=== PATIENT | male | born 1955 | race Caucasian/White ===

== ENCOUNTER 2020-05-28 00:35 | Emergency (ER) | payer MEDICAID ==
[~2020-05-28] VITALS: Ht 172.7 cm; Wt 71.6 kg
[2020-05-28 00:55] LABS: BASOPHILS # (AUTO) 0.1 10^3/uL (0.0-0.1); BASOPHILS % (AUTO) 1 % (0-10); EOSINOPHILS # (AUTO) 0.3 10^3/uL (0.0-0.3); EOSINOPHILS % (AUTO) 2 % (0-10); HEMATOCRIT 40 % (40-54); LYMPHOCYTES # (AUTO) 2.5 10^3/uL (1.0-4.0); LYMPHOCYTES % (AUTO) 20 % (12-44); MEAN CORPUSCULAR HEMOGLOBIN 30 pg (25-34); MEAN CORPUSCULAR HGB CONC 33 g/dL (32-36); MEAN CORPUSCULAR VOLUME 91 fL (80-99); MEAN PLATELET VOLUME 9.1 fL (9.0-12.2); MONOCYTES % (AUTO) 8 % (0-12); NEUTROPHILS # (AUTO) 8.5 10^3/uL (1.8-7.8); NEUTROPHILS % (AUTO) 68 % (42-75); PLATELET COUNT 288 10^3/uL (130-400); WHITE BLOOD COUNT 12.4 10^3/uL (4.3-11.0)
[2020-05-28 00:56] LABS: BILIRUBIN,URINE NEGATIVE (NEGATIVE); CLARITY,URINE SL CLOUDY; COLOR,URINE YELLOW; GLUCOSE, URINE (UA) NEGATIVE (NEGATIVE); KETONES,URINE NEGATIVE (NEGATIVE); LEUKOCYTE ESTERASE ,URINE NEGATIVE (NEGATIVE); NITRITE,URINE NEGATIVE (NEGATIVE); PROTEIN,URINE NEGATIVE (NEGATIVE)
--- NOTE | 2020-05-28 01:05 | ED General ---
General Chief Complaint: General Problems/Pain Stated Complaint: TREMORS Source of Information: Patient (VERY LIMITED HISTORIAN) History of Present Illness Date Seen by Provider: May 28, 2020 Time Seen by Provider: 00:37 Initial Comments PT ARRIVES VIA EMS FROM HOME --LIVES ALONE FAMILY/FRIENDS CALLED EMS BECAUSE PT WAS HAVING TREMORS, HAS HAD GENERALIZED WEAKNESS PT HAS HAD MULTIPLE FALLS RECENTLY, BUT DENIES ANY INJURIES FROM THEM. DENIES FALLING TODAY PT STATES THAT FOR THE LAST 2-3 WEEKS, HE HAS BEEN HAVING TINGLING IN HIS LEFT ARM AND IN HIS LEFT LEG, AND HAVING PROBLEMS WITH COORDINATION WITH HIS LEFT ARM AND LEFT LEG. HAS NOT SOUGHT CARE AT ANY TIME FOR THESE SYMPTOMS PT IS ALCOHOLIC, DRINKS UNKNOWN AMOUNT OF ALCOHOL EVERY DAY, REPORTS HE HAS "HAD A FEW BEERS" TODAY. PT ALSO SMOKES 2-3 PPD HAS NOT BEEN DX WITH COPD, DOES NOT HAVE HOME O2 STATES HE HAS HAD AN INHALER AND NEBULIZER BUT HAS NOT USED THEM LATELY PT ARRIVES COUGHING CONTINUOUSLY--STATES "I ALWAYS COUGH" EMS REPORT THAT PT WAS DYSPNEIC WITH MINIMAL EXERTION, AND WITH COUGHING. NO KNOWN FEVER/SWEATS/CHILLS DENIES ANY CHEST PAIN EMS REPORT O2 SAT 93% ON ROOM AIR AT THE SCENE O2 SATS 90-92% ON ROOM AIR--98% ON 2L/NC ON ARRIVAL HERE PT WAS SEEN AT [facility] LAST WEEK AND DX WITH SCABIES-STATES HE USED MEDICATION DIRECTED PT STATES HE HAS NOT SEEN A DR "IN A LONG TIME" PRIOR TO THAT. PT DENIES CHEST PAIN PT DENIES FEELING SHORT OF BREATH AT THIS TIME DENIES PAIN ANYWHERE DENIES NAUSEA/VOMITING/DIARRHEA DENIES VISION CHANGES--STATES HIS PERIPHERAL VISION HAS BEEN BAD FOR "A LONG TIME" DENIES SORE THROAT OR LOSS OF TASTE OR SMELL DENIES SWELLING IN LEGS/ FEET OR PAIN IN CALVES DENIES PALPITATIONS DENIES SYNCOPE DENIES HEADACHE HAS HAD SOME DIZZINESS/FEELING OFF BALANCE PT'S ONLY PRIOR VISIT HERE WAS IN 2007 FOR ABDOMINAL PAIN AND DX WITH C. DIFFICILE COLITIS--WAS NOT ADMITTED AT THAT TIME. PCP: ERICKSON Allergies and Home Medications Allergies Coded Allergies: No Known Drug Allergies (Unverified , 05/28/20) Patient Home Medication List Home Medication List Reviewed: Yes Review of Systems Review of Systems Constitutional: No chills, No diaphoresis; dizziness; No fever; malaise, weakness EENTM: no symptoms reported; No blurred vision, No double vision, No nose congestion, No throat pain Respiratory: see HPI, cough Cardiovascular: no symptoms reported; No chest pain, No edema, No palpitations, No vascular heart diseas Gastrointestinal: no symptoms reported; No abdominal pain, No diarrhea, No nausea, No vomiting Genitourinary: no symptoms reported Musculoskeletal: no symptoms reported; No back pain, No neck pain Skin: see HPI, pruritus, rash Psychiatric/Neurological: See HPI; Denies Headache; Numbness, Paresthesia, Tingling, Tremors, Weakness Past Aeuokwo-Ghhzud-Nauwwk Hx Past Med/Social Hx: Reviewed and Corrections made Patient Social History Alcohol Use: Regular Use (H) Drug of Choice: THC Smoking Status: Current Everyday Smoker Type Used: Cigarettes Substance type: Marijuana Past Medical History Surgeries: Yes (FACIAL RECONSTRUCTION; PILONIDAL CYST; CARDIAC CATH X 2--NO INTERVENTION; ) Cardiac Respiratory: Yes COPD Cardiac: Yes (CHF) Cardiomyopathy, Coronary Artery Disease, High Cholesterol, Hypertension Neurological: No Genitourinary: No Gastrointestinal: Yes (C. DIFFICILE 2008; HEPATITIS--UNKNOWN TYPE/NOT TREATED) Hepatitis, C-Diff Musculoskeletal: Yes (CARPAL TUNNEL SYNDROME) Arthritis, Chronic Back Pain Endocrine: No HEENT: No Cancer: No Psychosocial: Yes Anxiety, Depression Integumentary: Yes (SCABIES DX 05/2020) Blood Disorders: No Physical Exam Vital Signs Vital Signs - First Documented 05/28/20 00:37 Temp 36.2 Pulse 93 Resp 22 B/P (MAP) 144/94 (111) Pulse Ox 98 O2 Delivery Nasal Cannula O2 Flow Rate 2.00 Capillary Refill : Height, Weight, BMI Height: '" Weight: lbs. oz. kg; BMI Method: General Appearance: No Apparent Distress, WD/WN, Other (DIRTY, UNKEMPT, SLIGHT SLOW MENTATION; CONSTANT NON-PRODUCTIVE COUGH. ) HEENT: PERRL/EOMI, TMs Normal, Pharynx Normal, Other (TONGUE MIDLINE. ) Neck: Full Range of Motion, Normal Inspection, Non Tender, Supple; No Carotid Bruit, No JVD Respiratory: Rales (BILATERAL BASES), Other (CONSTANT COUGH; MILDLY DYSPNEIC. ) Cardiovascular: Regular Rate, Rhythm, No Edema, No JVD, No Murmur, Normal Peripheral Pulses Gastrointestinal: Non Tender, Soft Genital/Rectal: Other (PT VOIDED INTO URINAL ON HIS OWN MULTIPLE TIMES DURING ER STAY) Back: No CVA Tenderness Extremity: Normal Inspection, Normal Range of Motion, No Calf Tenderness, No Pedal Edema Neurologic/Psychiatric: Alert, Oriented x3 (BUT SLIGHTLY SLOW MENTATION, LIMITED HISTORIAN/SOME DIFFICULTY WITH MEMORY. ), Abnormal Cerebellar Tests (WITH LEFT ARM AND LEFT LEG--DIFFICULTY SITTING UPRIGHT--KEEPS LEANING TO LEFT; PT IS ABLE TO STAND ON OWN, WHILE HOLDING ON TO BED RAIL. ); No Aphasia, No Disoriented, No EOM Palsy, No Facial Droop; Motor Weakness (LEFT ARM AND LEFT LEG); No Sensory Deficit; Other (NIH 5--1 FOR LEFT ARM DRIFT, 2 FOR LEFT LEG DRIFT; 2 FOR LEFT UPPER AND LOWER EXTREMITY ATAXIA. NO INCONTINENCE.) Skin: Normal Color, Warm/Dry, Rash (DIFFUSE RASH WITH DISCRETE ERYTHEMATOUS PAPULES ON ENTIRE BODY--SPARING HEAD/FACE--CLASSIC APPEARANCE OF SCABIES. ) Progress/Results/Core Measures Suspected Sepsis SIRS Temperature: Pulse: Respiratory Rate: Laboratory Tests 05/28/20 00:45: White Blood Count 12.4H Blood Pressure / Mean: Laboratory Tests 05/28/20 00:45: Creatinine 0.74, INR Comment 1.0, Platelet Count 288, Total Bilirubin 0.2 Results/Orders Lab Results Laboratory Tests Test 05/28/20 00:45 05/28/20 01:00 Range/Units White Blood Count 12.4 H 4.3-11.0 10^3/uL Red Blood Count 4.41 4.30-5.52 10^6/uL Hemoglobin 13.0 L 13.3-17.7 g/dL Hematocrit 40 40-54 % Mean Corpuscular Volume 91 80-99 fL Mean Corpuscular Hemoglobin 30 25-34 pg Mean Corpuscular Hemoglobin Concent 33 32-36 g/dL Red Cell Distribution Width 15.2 H 10.0-14.5 % Platelet Count 288 130-400 10^3/uL Mean Platelet Volume 9.1 9.0-12.2 fL Immature Granulocyte % (Auto) 0 % Neutrophils (%) (Auto) 68 42-75 % Lymphocytes (%) (Auto) 20 12-44 % Monocytes (%) (Auto) 8 0-12 % Eosinophils (%) (Auto) 2 0-10 % Basophils (%) (Auto) 1 0-10 % Neutrophils # (Auto) 8.5 H 1.8-7.8 10^3/uL Lymphocytes # (Auto) 2.5 1.0-4.0 10^3/uL Monocytes # (Auto) 1.0 0.0-1.0 10^3/uL Eosinophils # (Auto) 0.3 0.0-0.3 10^3/uL Basophils # (Auto) 0.1 0.0-0.1 10^3/uL Immature Granulocyte # (Auto) 0.1 0.0-0.1 10^3/uL Prothrombin Time 13.3 12.2-14.7 SEC INR Comment 1.0 0.8-1.4 Activated Partial Thromboplast Time 32 24-35 SEC D-Dimer 0.52 H 0.00-0.49 UG/ML Urine Color YELLOW Urine Clarity SL CLOUDY Urine pH 6.0 5-9 Urine Specific [place] <=1.005 1.016-1.022 Urine Protein NEGATIVE NEGATIVE Urine Glucose (UA) NEGATIVE NEGATIVE Urine Ketones NEGATIVE NEGATIVE Urine Nitrite NEGATIVE NEGATIVE Urine Bilirubin NEGATIVE NEGATIVE Urine Urobilinogen 0.2 < = 1.0 MG/DL Urine Leukocyte Esterase NEGATIVE NEGATIVE Urine RBC (Auto) 1+ H NEGATIVE Urine RBC 0-2 /HPF Urine WBC 0-2 /HPF Urine Squamous Epithelial Cells RARE /HPF Urine Crystals NONE /LPF Urine Bacteria NEGATIVE /HPF Urine Casts NONE /LPF Urine Mucus NEGATIVE /LPF Urine Culture Indicated NO Sodium Level 136 135-145 MMOL/L Potassium Level 3.7 3.6-5.0 MMOL/L Chloride Level 104 98-107 MMOL/L Carbon Dioxide Level 21 21-32 MMOL/L Anion Gap 11 5-14 MMOL/L Blood Urea Nitrogen 11 7-18 MG/DL Creatinine 0.74 0.60-1.30 MG/DL Estimat Glomerular Filtration Rate > 60 BUN/Creatinine Ratio 15 Glucose Level 80 70-105 MG/DL Calcium Level 7.9 L 8.5-10.1 MG/DL Corrected Calcium 8.4 L 8.5-10.1 MG/DL Magnesium Level 1.7 1.6-2.4 MG/DL Total Bilirubin 0.2 0.1-1.0 MG/DL Aspartate Amino Transf (AST/SGOT) 15 5-34 U/L Alanine Aminotransferase (ALT/SGPT) 14 0-55 U/L Alkaline Phosphatase 69 40-136 U/L Ammonia 33 H 11-32 UMOL/L Lactate Dehydrogenase 205 125-220 U/L Total Creatine Kinase 94 30-200 U/L Creatine Kinase MB 2.4 <6.6 NG/ML Myoglobin 52.7 10.0-92.0 NG/ML Troponin I < 0.028 <0.028 NG/ML C-Reactive Protein High Sensitivity 2.42 H 0.00-0.50 MG/DL B-Type Natriuretic Peptide 104.0 H <100.0 PG/ML Total Protein 8.1 6.4-8.2 GM/DL Albumin 3.4 3.2-4.5 GM/DL Amylase Level 41 25-125 U/L Procalcitonin 0.02 <0.10 NG/ML TSH [place] Testing 2.31 0.35-4.94 UIU/ML Salicylates Level < 5.0 L 5.0-20.0 MG/DL Urine Opiates Screen NEGATIVE NEGATIVE Urine Oxycodone Screen NEGATIVE NEGATIVE Urine Methadone Screen NEGATIVE NEGATIVE Urine Propoxyphene Screen NEGATIVE NEGATIVE Acetaminophen Level < 10 L 10-30 UG/ML Urine Barbiturates Screen NEGATIVE NEGATIVE Ur Tricyclic Antidepressants Screen NEGATIVE NEGATIVE Urine Phencyclidine Screen NEGATIVE NEGATIVE Urine Amphetamines Screen NEGATIVE NEGATIVE Urine Methamphetamines Screen NEGATIVE NEGATIVE Urine Benzodiazepines Screen NEGATIVE NEGATIVE Urine Cocaine Screen NEGATIVE NEGATIVE Urine Cannabinoids Screen NEGATIVE NEGATIVE Serum Alcohol 144 H <10 MG/DL Coronavirus 2019 ([facility]ANKY) Positive H Negative Micro Results Microbiology 05/28/20 Influenza Types A,B Antigen (CARLY) - Final, Complete My Orders Orders - SHIRA CAREY DO Ed Iv/Invasive Line Start (05/28/20 00:40) Ekg Tracing (05/28/20 00:40) O2 (05/28/20 00:40) Monitor-Rhythm Ecg Trace Only (05/28/20 00:40) Ct Head Wo-R/O Stroke (05/28/20 00:40) Chest 1 View, Ap/Pa Only (05/28/20 00:40) Pelvis (05/28/20 00:40) Acetaminophen (05/28/20 00:40) Alcohol (05/28/20 00:40) Ammonia (05/28/20 00:40) Amylase (05/28/20 00:40) BNP (05/28/20 00:40) Cbc With Automated Diff (05/28/20 00:40) Comprehensive Metabolic Panel (05/28/20 00:40) Creatine Kinase (05/28/20 00:40) Creatine Kinase Mb (05/28/20 00:40) Hs C Reactive Protein (05/28/20 00:40) Drug Screen Stat (Urine) (05/28/20 00:40) Magnesium (05/28/20 00:40) Procalcitonin (Pct) (05/28/20 00:40) Protime With Inr (05/28/20 00:40) Partial Thromboplastin Time (05/28/20 00:40) Salicylate (05/28/20 00:40) Thyroid Analyzer (05/28/20 00:40) Ua Culture If Indicated (05/28/20 00:40) Erythrocyte Sedimentation Rate (05/28/20 00:40) Myoglobin Serum (05/28/20 00:40) Troponin I (05/28/20 00:40) Ed Iv/Invasive Line Start (05/28/20 00:40) Coronavirus Sars-Cov-2 So 2018 (05/28/20 00:57) Covid 19 Inhouse Test (05/28/20 00:57) Fluticasone/Salmeterol 115/21 (Advair Hf (05/28/20 08:00) Albuterol/Ipratropium Inhaler (Combivent (05/28/20 09:00) Rt Request For Service (05/28/20 00:57) Fibrin Degradation Products (05/28/20 00:45) LDH (05/28/20 00:45) Fluticasone/Salmeterol 115/21 (Advair Hf (05/28/20 01:47) Albuterol/Ipratropium Inhaler (Combivent (05/28/20 01:47) Influenza A And B Antigens (05/28/20 02:07) Dexamethasone Injection (Decadron Inje (05/28/20 03:00) Ceftriaxone For Iv Use (Rocephin For I (05/28/20 03:00) Azithromycin Injection (Zithromax Inject (05/28/20 03:00) Permethrin 5% Cream (Elimite 5% Cream) (05/28/20 03:15) Ed Iv/Invasive Line Start (05/28/20 03:06) Lactated Ringers (Lr 1000 Ml Iv Solution (05/28/20 03:15) Medications Given in ED Current Medications Medications Dose Ordered Sig/Rio Route Start Time Stop Time Status Last Admin Dose Admin Albuterol/ Ipratropium 1 PUFF QID ONCE 05/28/20 09:00 05/28/20 04:21 DC 05/28/20 02:05 4 GM Azithromycin 500 mg/Sodium Chloride 250 ml @ 250 mls/hr ONCE ONCE IV 05/28/20 03:00 05/28/20 03:59 DC 05/28/20 03:41 250 MLS/HR Ceftriaxone Sodium 1000 mg/ Sterile Water 10 ml @ 200 mls/hr ONCE ONCE IV 05/28/20 03:00 05/28/20 03:02 DC 05/28/20 03:41 200 MLS/HR Lactated Ringer's 1,000 ml @ 0 mls/hr Q0M ONCE IV 05/28/20 03:15 05/28/20 03:16 DC 05/28/20 03:40 999 MLS/HR Permethrin USE PER PACKAGE INSTRUCTIONS ONCE ONCE TOP 05/28/20 03:15 05/28/20 03:16 DC 05/28/20 03:39 60 GM Salmeterol Xinafoate/ Fluticasone 2 PUFFS RTBID ONCE 05/28/20 08:00 05/28/20 04:21 DC 05/28/20 02:05 1 EA Vital Signs/I&O 05/28/20 05/28/20 05/28/20 00:37 00:37 04:18 Temp 36.2 36.2 Pulse 93 98 Resp 22 18 B/P (MAP) 144/94 (111) 138/90 (111) Pulse Ox 98 100 O2 Delivery Nasal Cannula Nasal Cannula Nasal Cannula O2 Flow Rate 2.00 2.00 2.00 Capillary Refill : Progress Note : Progress Note PLACED IN ISOLATION ROOM PPE WORN COVID-19 TESTING PERFORMED PT ADVISED OF NEED FOR QUARANTINE O2 SATS 90-92% ON ROOM AIR-UP TO 98% ON 2L/NC AND REMAINED THERE FOR4 GIVEN INHALER TREATMENTS OF ADVAIR AND COMBIVENT WITH SIGNIFICANT IMPROVEMENT IN COUGHING PT HAD NO COMPLAINTS OF DYSPNEA PT HAD NO COMPLAINTS OF ANY KIND DURING ENTIRE ER STAY PT RESTED QUIETLY FOR REMAINDER OF STAY. PT WAS GIVEN DECADRON, ROCEPHIN AND ZITHROMAX, WELL IV FLUIDS TREATED WITH ELIMITE PRIOR TO TRANSFER. VITALS STABLE--NO FEVER AT ANY TIME. BP AND HEART RATE REMAINED NORMAL. NO DETERIORATION IN PT'S CONDITION DURING ER STAY ECG Initial ECG Impression Date: May 28, 2020 Initial ECG Impression Time: 00:58 Initial ECG Rate: 100 Initial ECG Comparisson: No Previous ECG Available Diagnostic Imaging Comments CXR--RLL INFILTRATE, QUESTIONABLE MASS. ? MILD LLL INFILTRATE ? --PENDING RADIOLOGIST REVIEW CT HEAD--WHITE MATTER HYPODENSITIES IN RIGHT OCCIPITAL AND PARIETAL LOBES, SUSP ICIOUS FOR EDEMA DUE TO OCCULT MASS. MINIMAL MASS EFFECT WITH MINIMAL LEFTWARD MIDLINE SHIFT IN FRONTAL REGION. NO ACUTE INTRACRANIAL HEMORRHAGE OR INFARCT. --PER [facility] VIA FAX AT 0214 Reviewed: Reviewed by Me Departure Communication (Admissions) Family Conversation 031--ATTEMPTED TO CONTACT MELISSA AND ROBERT HOLLIS, AT PT'S REQUEST. MESSAGE LEFT ON MACHINE 0320--SPOKE WITH ROBERT HOLLIS, HE STATES HE IS PT'S BEST FRIEND. UPDATED HIM ON PT'S CONDITION AND NEED FOR TRANSFER. HE REPORTS THAT PT HAS NO FAMILY AT ALL--JUST HAS FRIENDS THAT CHECK IN ON HIM. HE STATES HE IS THE ONE WHO TOOK HIM TO WALK IN CLINIC IN [place] LAST WEEK. HE ALSO STATES THAT PT WAS UNSTEADY LAST WEEK AND LOST HIS BALANCE AND FELL, AND BUMPED HIS HEAD. NO LOSS OF CONSCIOUSNESS. NO OTHER APPARENT INJURIES. DID NOT SEEK CARE FOR THAT INCIDENT. HE CONFIRMS THAT PT HAS NOT SEEN A DR IN A LONG TIME, WITH THE EXCEPTION OF THE VISIT LAST WEEK FOR SCABIES. HE CONFIRMS THAT PT SITS AROUND ALL DAY AND SMOKES AND DRINKS. I ADVISED HIM OF PT'S COVID STATUS AND NEED FOR QUARANTINE, HE HAS BEEN [facility] PT AND HAD CLOSE CONTACT WITHIN THE LAST WEEK. 0232--CALLED [facility]. 0250--SPOKE WITH DR. GURMEET SANCHEZ, HOSPITALIST. ACCEPTS PT FOR ADMIT. AGREES WITH DECADRON, ROCEPHIN AND ZITHROMAX. WILL ALSO TREAT PT FOR SCABIES PRIOR TO TRANSFER. Impression Primary Impression: Cerebral edema Additional Impressions: POSSIBLE BRAIN MASS RLL pneumonia POSSIBLE LUNG MASS COVID-19 virus infection COPD (chronic obstructive pulmonary disease) Scabies Alcoholism Very heavy cigarette smoker (40 or more per day) Left-sided weakness Frequent falls Disposition: 02 XFER SHT-TRM HOSP Condition: Stable Transfer Transfer Reason: Exceeds level of care Transfer Facility: [facility], [place] Method of Transfer: EMS Departure-Patient Inst. Referrals: MAHSA SANTOYO DO (PCP/Family) Primary Care Physician SHIRA CAREY DO May 28, 2020 01:05
[2020-05-28 01:19] LABS: BACTERIA,URINE NEGATIVE /HPF; RBC,URINE 0-2 /HPF; SQUAMOUS EPITHELIAL CELL,UR RARE /HPF; WBC,URINE 0-2 /HPF
[2020-05-28 01:20] LABS: CHLORIDE 104 MMOL/L (98-107); FIBRIN DEGRADATION PRODUCTS 0.52 UG/ML (0.00-0.49); POTASSIUM 3.7 MMOL/L (3.6-5.0); PROTHROMBIN TIME PATIENT 13.3 SEC (12.2-14.7)
[2020-05-28 01:21] LABS: ALBUMIN 3.4 GM/DL (3.2-4.5); SODIUM 136 MMOL/L (135-145)
[2020-05-28 01:22] LABS: AMPHETAMINE SCREEN, URINE NEGATIVE (NEGATIVE); BARBITURATE SCREEN URINE NEGATIVE (NEGATIVE); BENZODIAZEPINES SCREEN URINE NEGATIVE (NEGATIVE); CALCIUM 7.9 MG/DL (8.5-10.1); CANNABINOID SCREEN, URINE NEGATIVE (NEGATIVE); COCAINE SCREEN URINE NEGATIVE (NEGATIVE); METHADONE STAT NEGATIVE (NEGATIVE); METHAMPHETAMINE SCREEN URINE S NEGATIVE (NEGATIVE); OPIATE SCREEN URINE NEGATIVE (NEGATIVE); OXYCODONE STAT NEGATIVE (NEGATIVE); PROPOXYPHENE STAT NEGATIVE (NEGATIVE); TRICYCLIC ANTIDEPRESSANTS SCRE NEGATIVE (NEGATIVE)
[2020-05-28 01:23] LABS: AMMONIA 33 UMOL/L (11-32); AMYLASE 41 U/L (25-125); GLUCOSE 80 MG/DL (70-105)
[2020-05-28 01:24] LABS: TOTAL PROTEIN 8.1 GM/DL (6.4-8.2)
[2020-05-28 01:25] LABS: BILIRUBIN,TOTAL 0.2 MG/DL (0.1-1.0); CARBON DIOXIDE 21 MMOL/L (21-32)
[2020-05-28 01:27] LABS: ALKALINE PHOSPHATASE 69 U/L (40-136); CREATININE SERUM 0.74 MG/DL (0.60-1.30); GFR ESTIMATED > 60
[2020-05-28 01:29] LABS: BUN/CREATININE RATIO 15
[2020-05-28 01:30] LABS: ACETAMINOPHEN < 10 UG/ML (10-30); ALANINE AMINOTRANSFERASE 14 U/L (0-55); MAGNESIUM 1.7 MG/DL (1.6-2.4); SALICYLATE < 5.0 MG/DL (5.0-20.0)
[2020-05-28 01:31] LABS: CREATINE KINASE 94 U/L (30-200)
[2020-05-28 01:39] LABS: CREATINE KINASE MB 2.4 NG/ML (<6.6)
[2020-05-28] MEDS ORDERED: ADVAIR HFA 115/21 MCG INHALER 8 GM IH ONE ×2 (01:47→08:00)
[2020-05-28] MEDS ORDERED: ALBUTEROL/IPRATROP (COMBIVENT RESPIMAT) 4 GM INHALER ONE (01:47)
[2020-05-28 01:51] LABS: TSH (THYROID ANALYZER) 2.31 UIU/ML (0.35-4.94)
[2020-05-28] MEDS ORDERED: AZITHROMYCIN INJECTION 500 MG in NS (IVPB) 250 ML IV ONE (03:00)
[2020-05-28] MEDS ORDERED: cefTRIAXone FOR IV USE 1,000 MG in WATER (STERILE) FOR INJECTION 10 ML IV ONE (03:00)
[2020-05-28] MEDS ORDERED: PERMETHRIN (ELIMITE) 5% CR 60 GM TUBE TOP ONE (03:15)
[2020-05-28] MEDS ORDERED: LACTATED RINGERS 1,000 ML IV ONE (03:15)
[2020-05-28 04:18] VITALS: BP 138/90
--- NOTE | 2020-05-28 06:55 | Diagnostic Imaging Report ---
PROCEDURE: CT head wo r/o stroke. TECHNIQUE: Multiple contiguous axial images were obtained through the brain without the use of intravenous contrast. Auto Exposure Controls were utilized during the CT exam to meet ALARA standards for radiation dose reduction. Indication: Altered mental status with new onset tremors and uncontrollable coughing, history of COVID pneumonia. Comparison: None. Discussion: Exam is degraded by motion. There is significant hypoattenuation within the right parietal, occipital and posterior temporal lobe which is most likely due to edema. There is no volume loss in this region. Near the vertex of the right parietal lobe there is an ill-defined 2.1 cm hyperdense mass which could represent a true mass or less likely hemorrhage or hemorrhage within a mass. There is no midline shift or hydrocephalus. There is focal mass effect in the region of edema. Infarct should also be considered though most likely this represents changes from an underlying intracranial mass. This could be further evaluated with MRI with contrast as clinically indicated. The orbits, sinuses, mastoid air cells, and calvarium are unremarkable. Impression: 1. Significant edema noted within the posterior right cerebral hemisphere. There is an ill-defined dense rounded focus near the vertex which could represent a solid mass, hemorrhagic mass, or less likely focal hemorrhage. Findings are concerning for intracranial mass/neoplasm. Recommend brain MRI with contrast to further evaluate. 2. Agree with preliminary report. Report was faxed to [facility] by michael at 6:56AM. Dictated by: Dictated on workstation # [id number]
--- NOTE | 2020-05-28 07:58 | Diagnostic Imaging Report ---
EXAMINATION: Pelvis, single view. COMPARISON: None. HISTORY: 64-year-old male, pelvic pain. FINDINGS: The pubic symphysis and sacroiliac joints are normally aligned. The hips are not obviously dislocated. There is no identified acute fracture. There are vascular calcifications. IMPRESSION: 1. No identified acute bony abnormality of the pelvis. Dictated by: Dictated on workstation # [id number]
--- NOTE | 2020-05-28 07:59 | Diagnostic Imaging Report ---
EXAMINATION: Chest radiograph, portable AP view. DATE: 05/28/2020 1:50 AM INDICATION: 64-year-old male, weakness. COMPARISON: June 11, 2006. FINDINGS: Heart size and mediastinal contours are unremarkable. There is no identified pneumothorax. There are multifocal bilateral interstitial and alveolar opacities. Alveolar consolidation is most notable in the right lower lung zone. IMPRESSION: 1. Multifocal bilateral interstitial and/or alveolar opacities. Appearance would be consistent with provided history of COVID 19 infection. Other causes of multifocal pneumonia as well as additional alveolar consolidative processes including pneumonitis would also be in the differential diagnosis. Report was faxed to [facility] by michael at 7:58AM. Dictated by: Dictated on workstation # [id number]
[2020-05-28] MEDS ORDERED: ALBUTEROL/IPRATROP (COMBIVENT RESPIMAT) 4 GM INHALER IH ONE (09:00)
[2020-05-28 14:09] LABS: ERYTHROCYTE SEDIMENTATION RATE 4 MM/HR (0-30)
== END 2020-05-28 04:21 | disposition short-term general hospital (02) ==
LOC: EDUNIT# 00:35 → ER 00:36
DX: U07.1 COVID-19 (principal); J12.82 Pneumonia due to coronavirus disease 2019; G93.6 Cerebral edema; B86 Scabies; F10.20 Alcohol dependence, uncomplicated; R53.1 Weakness; R29.6 Repeated falls; J44.9 Chronic obstructive pulmonary disease, unspecified; I11.0 Hypertensive heart disease with heart failure; I50.9 Heart failure, unspecified; F17.210 Nicotine dependence, cigarettes, uncomplicated; Z95.9 Presence of cardiac and vascular implant and graft, unspecified; Y90.6 Blood alcohol level of 120-199 mg/100 ml
CPT/HCPCS: 36415; 70450; 71045; 72170; 80053; 80306; 80320; 80329; 81000; 82140; 82150; 82550; 82553; 83615; 83735; 83874; 83880; 84145; 84443; 84484; 85025; 85379; 85610; 85652; 85730; 86141; 87635; 87804; 93005; 93041

== ENCOUNTER 2020-07-18 05:43 | Inpatient (IN) | payer MEDICARE, MEDICAID ==
[2020-07-18] VITALS (7 sets, daily range): BP systolic 99–117; BP diastolic 58–74
[~2020-07-18] VITALS: Ht 172.7 cm; Wt 68.0 kg
[2020-07-18] MEDS ORDERED: morphine INJ 10 MG/ML 1ML (SYR OR VIAL) IVP STA (05:57)
[2020-07-18] MEDS ORDERED: NS IV 1000 ML 1,000 ML IV SCH (06:00)
[2020-07-18] MEDS ORDERED: ONDANSETRON 4 MG/2 ML (SDV) Z0FRAN IVP ONE (06:00)
[2020-07-18 06:05] LABS: BASOPHILS # (AUTO) 0.1 10^3/uL (0.0-0.1); BASOPHILS % (AUTO) 0 % (0-10); EOSINOPHILS % (AUTO) 0 % (0-10); HEMATOCRIT 50 % (40-54); HEMOGLOBIN 16.1 g/dL (13.3-17.7); LYMPHOCYTES # (AUTO) 1.5 10^3/uL (1.0-4.0); LYMPHOCYTES % (AUTO) 13 % (12-44); MEAN CORPUSCULAR HEMOGLOBIN 30 pg (25-34); MEAN CORPUSCULAR HGB CONC 32 g/dL (32-36); MEAN CORPUSCULAR VOLUME 93 fL (80-99); MEAN PLATELET VOLUME 9.1 fL (9.0-12.2); MONOCYTES # (AUTO) 0.7 10^3/uL (0.0-1.0); MONOCYTES % (AUTO) 6 % (0-12); NEUTROPHILS # (AUTO) 9.2 10^3/uL (1.8-7.8); NEUTROPHILS % (AUTO) 80 % (42-75); PLATELET COUNT 258 10^3/uL (130-400); WHITE BLOOD COUNT 11.6 10^3/uL (4.3-11.0)
--- NOTE | 2020-07-18 06:14 | ED Abdominal Pain ---
General Chief Complaint: Abdominal/GI Problems Stated Complaint: ABD PAIN Nursing Triage Note: Pt arrival to ER from home via [facility] with complaint of abdominal pain since yesterday afternoon after eating chicken and rice. Pt is a 65 year old male with lung and brain cancer. Pt states that he takes 800 mg of Ibuprofen q4 hours along with dexamethazone. Pt is having severe abdominal pain rated at a 10/10. Pts abdomen is firm, and gaurded. Pt describes pain as a sharp cramp like pain. 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 No nausea fever chills cough shortness of air. He has a history of COPD, lung cancer with mets to brain, cardiomyopathy and follows with primary care and oncology at [place]. No dysuria or diarrhea. Does endorse dark stools. He also endorses taking ibuprofen 800 mg every 4 hours as well as dexamethasone for his brain mets and pain. The patient is DNR Allergies and Home Medications Allergies Coded Allergies: No Known Drug Allergies (Unverified , 05/28/20) Patient Home Medication List Home Medication List Reviewed: Yes Review of Systems Review of Systems Constitutional: No chills, No fever EENTM: No Blurred Vision, No Double Vision Respiratory: Denies Cough, Denies Shortness of Air Cardiovascular: Denies Chest Pain, Denies Lightheadedness Gastrointestinal: See HPI, Abdominal Pain; Denies Constipated, Denies Diarrhea, Denies Nausea Genitourinary: Denies Burning, Denies Discharge Musculoskeletal: No back pain, No joint pain All Other Systems Reviewed Negative Unless Noted: Yes Past Porsvfr-Qmbakd-Krsdem Hx Patient Social History Alcohol Use: Occasionally Uses Number of Drinks Today: AA Alcohol Beverage of Choice: Beer Drug of Choice: THC Smoking Status: Current Everyday Smoker (Pack per day) Type Used: Cigarettes Recent Infectious Disease Expo: No Recent Hopitalizations: Yes Immunizations Up To Date Tetanus Booster (TDap): Less than 5yrs PED Vaccines UTD: Yes Seasonal Allergies Seasonal Allergies: No Past Medical History Surgeries: Yes (FACIAL RECONSTRUCTION; PILONIDAL CYST; CARDIAC CATH X 2--NO INTERVENTION; ) Cardiac Respiratory: Yes COPD Cardiac: Yes (CHF) Cardiomyopathy, Coronary Artery Disease, High Cholesterol, Hypertension Neurological: No Genitourinary: No Gastrointestinal: Yes (C. DIFFICILE 2008; HEPATITIS--UNKNOWN TYPE/NOT TREATED) Hepatitis, C-Diff Musculoskeletal: Yes (CARPAL TUNNEL SYNDROME) Arthritis, Chronic Back Pain Endocrine: No HEENT: No Cancer: Yes Brain, Lung Did You Recieve Any Treatments: Yes What Type of Treatment Did You: Chemotherapy, Radiation Psychosocial: Yes Anxiety, Depression Integumentary: Yes (SCABIES DX 05/2020) Blood Disorders: No Physical Exam Vital Signs Vital Signs - First Documented 07/18/20 05:46 Temp 34.8 Pulse 90 Resp 20 B/P (MAP) 145/96 (112) Pulse Ox 97 O2 Delivery Room Air Capillary Refill : Less Than 3 Seconds Height/Weight/BMI Height: '" Weight: lbs. oz. kg; 22.00 BMI Method: General Appearance: moderate distress, thin HEENT: PERRL/EOMI, pharynx normal Neck: full range of motion, normal inspection Respiratory: lungs clear, normal breath sounds, no respiratory distress, no accessory muscle use Cardiovascular: normal peripheral pulses, regular rate, rhythm Peripheral Pulses: 2+ Radial Pulses (R), 2+ Radial Pulses (L) Gastrointestinal: non tender, soft, no organomegaly, abnormal bowel sounds Extremities: non-tender, normal inspection, normal capillary refill Neurologic/Psychiatric: alert, normal mood/affect, oriented x 3 Skin: normal color, warm/dry Focused Exam Lactate Level 07/18/20 05:58: Lactic Acid Level 1.54 Lactic Acid Level Laboratory Tests Test 07/18/20 05:58 Lactic Acid Level 1.54 MMOL/L (0.50-2.00) Progress/Results/Core Measures Results/Orders Lab Results Laboratory Tests Test 07/18/20 05:51 07/18/20 05:58 Range/Units Lipase 13 8-78 U/L White Blood Count 11.6 H 4.3-11.0 10^3/uL Red Blood Count 5.38 4.30-5.52 10^6/uL Hemoglobin 16.1 13.3-17.7 g/dL Hematocrit 50 40-54 % Mean Corpuscular Volume 93 80-99 fL Mean Corpuscular Hemoglobin 30 25-34 pg Mean Corpuscular Hemoglobin Concent 32 32-36 g/dL Red Cell Distribution Width 17.1 H 10.0-14.5 % Platelet Count 258 130-400 10^3/uL Mean Platelet Volume 9.1 9.0-12.2 fL Immature Granulocyte % (Auto) 1 % Neutrophils (%) (Auto) 80 H 42-75 % Lymphocytes (%) (Auto) 13 12-44 % Monocytes (%) (Auto) 6 0-12 % Eosinophils (%) (Auto) 0 0-10 % Basophils (%) (Auto) 0 0-10 % Neutrophils # (Auto) 9.2 H 1.8-7.8 10^3/uL Lymphocytes # (Auto) 1.5 1.0-4.0 10^3/uL Monocytes # (Auto) 0.7 0.0-1.0 10^3/uL Eosinophils # (Auto) 0.0 0.0-0.3 10^3/uL Basophils # (Auto) 0.1 0.0-0.1 10^3/uL Immature Granulocyte # (Auto) 0.1 0.0-0.1 10^3/uL Sodium Level 134 L 135-145 MMOL/L Potassium Level 4.3 3.6-5.0 MMOL/L Chloride Level 100 98-107 MMOL/L Carbon Dioxide Level 24 21-32 MMOL/L Anion Gap 10 5-14 MMOL/L Blood Urea Nitrogen 23 H 7-18 MG/DL Creatinine 0.70 0.60-1.30 MG/DL Estimat Glomerular Filtration Rate > 60 BUN/Creatinine Ratio 33 Glucose Level 135 H 70-105 MG/DL Lactic Acid Level 1.54 0.50-2.00 MMOL/L Calcium Level 9.1 8.5-10.1 MG/DL Corrected Calcium 9.3 8.5-10.1 MG/DL Total Bilirubin 0.5 0.1-1.0 MG/DL Aspartate Amino Transf (AST/SGOT) 16 5-34 U/L Alanine Aminotransferase (ALT/SGPT) 25 0-55 U/L Alkaline Phosphatase 68 40-136 U/L Total Protein 6.9 6.4-8.2 GM/DL Albumin 3.8 3.2-4.5 GM/DL My Orders Orders - ARMEN HOFFMANN Lipase (07/18/20 06:08) Blood Culture (07/18/20 06:20) Piperacillin Sodium/Tazobactam (Zosyn Vi (07/18/20 06:30) Vancomycin Injection (Vancomycin Injecti (07/18/20 06:30) Type And Screen (07/18/20 06:59) Medications Given in ED Current Medications Medications Dose Ordered Sig/Rio Route Start Time Stop Time Status Last Admin Dose Admin Ondansetron HCl 4 mg ONCE ONCE IVP 07/18/20 06:00 07/18/20 06:01 DC 07/18/20 06:22 4 MG Piperacillin Sod/ Tazobactam Sod 4.5 gm/Sodium Chloride 100 ml @ 200 mls/hr ONCE ONCE IV 07/18/20 06:30 07/18/20 06:59 DC 07/18/20 06:44 200 MLS/HR Vancomycin HCl 1250 mg/Sodium Chloride 250 ml @ 210 mls/hr ONCE ONCE IV 07/18/20 06:30 07/18/20 07:41 07/18/20 07:14 210 MLS/HR Vital Signs/I&O 07/18/20 05:46 Temp 34.8 Pulse 90 Resp 20 B/P (MAP) 145/96 (112) Pulse Ox 97 O2 Delivery Room Air Blood Pressure Mean: 112 Progress Progress Note #1: Time: 06:19 Progress Note None patient with significant cramping abdominal pain history of high-dose NSAID usage as well as metastatic lung cancer. Concern for perforation and peritonitis. Plan to get blood cultures and give antibiotics and get a CT as well as morphine for pain. Progress Note #2: Time: 06:40 Progress Note Discussed case with Dr. Sow who said he would be in to see the patient. His medical student is here reviewing the patient's history. We had a discussion about goals of care and end-of-life care and at this time the patient would like to allow natural if his heart were to stop. He is a DO NOT RESUSCITATE. He is however in agreement with doing surgery if indicated. Diagnostic Imaging Diagonstic Imaging: Xray Plain Films/CT/US/NM/MRI: chest Comments NAME: ISAIAH PARTIDA REC#: [id number] PT STATUS: REG ER : 1955 PHYSICIAN: YARIEL MELLO MD ADMIT DATE: 07/18/20/ER Draft Date of Exam:07/18/20 CHEST 1 VIEW, AP/PA ONLY INDICATION: Severe abdominal pain, free air. COMPARISON: 05/28/[address] dated 07/18/2020 TECHNIQUE: Single radiograph of the chest dated 07/18/2020 FINDINGS: The cardiac silhouette is stable. No significant pulmonary vascular congestion. 5.3 cm masslike density is noted overlying the right lung base. Previously noted patchy pulmonary opacities appear slightly improved since the prior examination with mild persisting bibasilar interstitial opacities. No large-volume pleural effusion. No pneumothorax. No acute osseous abnormality. IMPRESSION: 5.3 cm masslike density overlying the right lung base. This may relate to focal infiltrate, though mass lesion should be considered. CT of the chest is recommended for further evaluation. Improved bilateral pulmonary opacities with persisting mild bibasilar pneumonitis versus fibrosis. Additional findings as above. Dictated on workstation # [id number] Dict: 07/18/20 0637 Trans: 07/18/20 0648 [id number] Interpreted by: BARBARA SOTOMAYOR MD Electronically signed by: Reviewed: Reviewed by Ut Diagonstic Imaging: CT Plain Films/CT/US/NM/MRI: abdomen, pelvis Comments [facility] [place] NAME: ISAIAH PARTIDA [facility] REC#: [id number] PT STATUS: REG ER : 1955 PHYSICIAN: YARIEL MELLO MD ADMIT DATE: 07/18/20/ER Draft Date of Exam:07/18/20 CT ABDOMEN/PELVIS WO PROCEDURE: CT abdomen and pelvis without contrast. TECHNIQUE: Multiple contiguous axial images were obtained through the abdomen and pelvis without the use of intravenous contrast. Auto Exposure Controls were utilized during the CT exam to meet ALARA standards for radiation dose reduction. INDICATION: Severe abdominal pain. Concern for free intraperitoneal air. COMPARISON: Chest radiograph 07/18/2020. FINDINGS: Mass in the anterior right lung base measuring up to 5.1 cm. There is also diffuse airspace consolidation in the lung bases. Moderate amount of free intraperitoneal air under the diaphragm anteriorly. No focal bowel perforation is identified. No free fluid. No evidence of bowel obstruction. The liver, gallbladder, pancreas, spleen, adrenals, kidneys, collecting systems and bladder are negative. No evidence of appendicitis. No lymphadenopathy. No acute osseous findings. IMPRESSION: 1. Moderate amount of free intraperitoneal air primarily layering around the diaphragm and stomach. No discrete bowel perforation is identified. This air seems to be localized primarily about the stomach which may be the site of hollow viscus perforation. 2. Mass in the right lung base measuring up to 5.1 cm. There is also additional interstitial and airspace opacities in the lung base which could represent pneumonitis versus atelectasis. Findings discussed with Dr. Armen Hoffmann at 6:40 AM on 07/18/2020. Dictated on workstation # [id number] Dict: 07/18/20 0630 Trans: 07/18/20 0645 SRAVANI [id number] Interpreted by: HANNAH MEREDITH MD Electronically signed by: Reviewed: Reviewed by Me Departure Communication (Admissions) Time/Spoke to Admitting Phy: 06:40 Impression Primary Impression: Perforated ulcer Disposition: ADMITTED INPATIENT Condition: Stable Admissions Decision to Admit Reason: Admit from ER (General) Decision to Admit/Date: Jul 18, 2020 Time/Decision to Admit Time: 06:40 Departure-Patient Inst. Referrals: MAHSA SANTOYO DO (PCP/Family) Primary Care Physician ARMEN HOFFMANN Jul 18, 2020 06:14
[2020-07-18 06:17] LABS: ALBUMIN 3.8 GM/DL (3.2-4.5); CHLORIDE 100 MMOL/L (98-107); POTASSIUM 4.3 MMOL/L (3.6-5.0); SODIUM 134 MMOL/L (135-145)
[2020-07-18 06:18] LABS: CALCIUM 9.1 MG/DL (8.5-10.1)
[2020-07-18 06:19] LABS: GLUCOSE 135 MG/DL (70-105)
[2020-07-18 06:20] LABS: TOTAL PROTEIN 6.9 GM/DL (6.4-8.2)
[2020-07-18 06:21] LABS: BILIRUBIN,TOTAL 0.5 MG/DL (0.1-1.0); CARBON DIOXIDE 24 MMOL/L (21-32)
[2020-07-18 06:23] LABS: ALKALINE PHOSPHATASE 68 U/L (40-136); GFR ESTIMATED > 60
[2020-07-18 06:24] LABS: BUN/CREATININE RATIO 33
[2020-07-18 06:26] LABS: ALANINE AMINOTRANSFERASE 25 U/L (0-55)
[2020-07-18] MEDS ORDERED: PIPERACILLIN SODIUM/TAZOBACTAM 4.5 GM in NS (IVPB) 100 ML IV ONE (06:30)
[2020-07-18] MEDS ORDERED: VANCOMYCIN INJECTION 1,250 MG in NS (IVPB) 250 ML IV ONE (06:30)
--- NOTE | 2020-07-18 06:46 | Diagnostic Imaging Report ---
PROCEDURE: CT abdomen and pelvis without contrast. TECHNIQUE: Multiple contiguous axial images were obtained through the abdomen and pelvis without the use of intravenous contrast. Auto Exposure Controls were utilized during the CT exam to meet ALARA standards for radiation dose reduction. INDICATION: Severe abdominal pain. Concern for free intraperitoneal air. COMPARISON: Chest radiograph 07/18/2020. FINDINGS: Mass in the anterior right lung base measuring up to 5.1 cm. There is also diffuse airspace consolidation in the lung bases. Moderate amount of free intraperitoneal air under the diaphragm anteriorly. No focal bowel perforation is identified. No free fluid. No evidence of bowel obstruction. The liver, gallbladder, pancreas, spleen, adrenals, kidneys, collecting systems and bladder are negative. No evidence of appendicitis. No lymphadenopathy. No acute osseous findings. IMPRESSION: 1. Moderate amount of free intraperitoneal air primarily layering around the diaphragm and stomach. No discrete bowel perforation is identified. This air seems to be localized primarily about the stomach which may be the site of hollow viscus perforation. 2. Mass in the right lung base measuring up to 5.1 cm. There is also additional interstitial and airspace opacities in the lung base which could represent pneumonitis versus atelectasis. Findings discussed with Dr. Armen Hoffmann at 6:40 AM on 07/18/2020. Dictated by: Dictated on workstation # [id number]
--- NOTE | 2020-07-18 06:48 | Diagnostic Imaging Report ---
INDICATION: Severe abdominal pain, free air. COMPARISON: 05/28/[address] dated 07/18/2020 TECHNIQUE: Single radiograph of the chest dated 07/18/2020 FINDINGS: The cardiac silhouette is stable. No significant pulmonary vascular congestion. 5.3 cm masslike density is noted overlying the right lung base. Previously noted patchy pulmonary opacities appear slightly improved since the prior examination with mild persisting bibasilar interstitial opacities. No large-volume pleural effusion. No pneumothorax. No acute osseous abnormality. IMPRESSION: 5.3 cm masslike density overlying the right lung base. This may relate to focal infiltrate, though mass lesion should be considered. CT of the chest is recommended for further evaluation. Improved bilateral pulmonary opacities with persisting mild bibasilar pneumonitis versus fibrosis. Additional findings as above. Dictated by: Dictated on workstation # [id number]
--- NOTE | 2020-07-18 08:32 | History & Physical-Surgical ---
ENMA HULL MED STUDENT 07/18/20 0832: History of Present Illness History of Present Illness Reason for visit/HPI Dewayne Jara is a 65 yo M presenting to the ED for abdominal pain. He was found to have free air under the diaphragm near the stomach on CT scan. The patient had radiation therapy for lung cancer with mets to the brain 3 days ago. he is taking dexamethasone, ibuprofen, and hydrocodone at night for this. He states his pain began suddenly yesterday afternoon, initially 6/10 but now "20"/10. Pain is midline epigastric and periumbilical, sharp and constant since onset. He says his pain waxes and wanes. The patient states he felt fine prior to onset of pain. he denies recent nausea, vomiting, fever, chills. Admits chronic constipation d/t opiate use but no recent change. Reports dark stooling due to dexamethasone, no recent change, no bloody stools. The patient states he would like to have surgery if it were necessary to save his life. Date of Admission 07/18/20 Date Seen by a Provider: Jul 18, 2020 Time Seen by a Provider: 06:55 I consulted on this patient on 07/18/20 06:50 Attending Physician Eliz Davis DO Admitting Physician Yesenia Cotter DO Consult Allergies and Home Medications Allergies Coded Allergies: No Known Drug Allergies (Unverified , 05/28/20) Past Ajreyit-Vygggq-Rxnfgo Hx Patient Social History Number of Drinks Today: AA Drug of Choice: THC Smoking Status: Current Everyday Smoker (Pack per day) Type Used: Cigarettes Recent Hopitalizations: Yes Alcohol Use?: Yes Immunizations Up To Date Tetanus Booster (TDap): Less than 5yrs PED Vaccines UTD: Yes Seasonal Allergies Seasonal Allergies: No Surgeries History of Surgeries: Yes (FACIAL RECONSTRUCTION; PILONIDAL CYST; CARDIAC CATH X 2--NO INTERVENTION; ) Surgeries: Cardiac Respiratory History of Respiratory Disorde: Yes Respiratory Disorders: COPD Cardiovascular History of Cardiac Disorders: Yes (CHF) Cardiac Disorders: Cardiomyopathy, Coronary Artery Disease, High Cholesterol, Hypertension Neurological History of Neurological Disord: No Genitourinary History of Genitourinary Disor: No Gastrointestinal History of Gastrointestinal Di: Yes (C. DIFFICILE 2008; HEPATITIS--UNKNOWN TYPE/NOT TREATED) Gastrointestinal Disorders: Hepatitis, C-Diff Musculoskeletal History of Musculoskeletal Dis: Yes (CARPAL TUNNEL SYNDROME) Musculoskeletal Disorders: Arthritis, Chronic Back Pain Endocrine History of Endocrine Disorders: No HEENT History of HEENT Disorders: No Cancer History of Cancer: Yes Cancer: Brain, Lung Psychosocial History of Psychiatric Problem: Yes Behavioral Health Disorders: Anxiety, Depression Integumentary History of Skin or Integumenta: Yes (SCABIES DX 05/2020) Blood Transfusions History of Blood Disorders: No Family Medical History Significant Family History: Cerebral Aneurysm (mother) Review of Systems Constitutional: No chills, No fever EENTM: No vision loss, No throat pain Respiratory: No cough; short of breath (unchanged from baseline) Cardiovascular: No chest pain, No palpitations Gastrointestinal: abdominal pain (diffuse, worst in epigastric area), constipation (d/t radiation and hydrocodone use); No diarrhea, No nausea, No vomiting Genitourinary: No dysuria, No hematuria Musculoskeletal: joint pain (chronic), other (denies leg pain, denies arm pain) Skin: No pruritus, No rash Psychiatric/Neurological: Denies Seizure, Denies Tremors All Other Systems Reviewed Negative Unless Noted: Yes Physical Exam Vital Signs Vital Signs - First Documented 07/18/20 05:46 Temp 34.8 Pulse 90 Resp 20 B/P (MAP) 145/96 (112) Pulse Ox 97 O2 Delivery Room Air Capillary Refill : Less Than 3 Seconds Height, Weight, BMI Height: '" Weight: lbs. oz. kg; 22.00 BMI Method: General Appearance: WD/WN, Severe Distress HEENT: PERRL/EOMI Neck: Normal Inspection Respiratory: Chest Non Tender, Lungs Clear, Normal Breath Sounds, No Accessory Muscle Use, No Respiratory Distress Cardiovascular: Regular Rate, Rhythm, No JVD, No Murmur Gastrointestinal: No Distended; Guarding, Rebound, Tenderness (severe diffuse abdominal tenderness) Extremity: Pedal Edema (1+ bilaterally) Skin: Normal Color, Warm/Dry Data Review Labs Laboratory Tests 07/18/20 05:51: Lipase 13 07/18/20 05:58: White Blood Count 11.6H, Red Blood Count 5.38, Hemoglobin 16.1, Hematocrit 50, Mean Corpuscular Volume 93, Mean Corpuscular Hemoglobin 30, Mean Corpuscular Hemoglobin Concent 32, Red Cell Distribution Width 17.1H, Platelet Count 258, Mean Platelet Volume 9.1, Immature Granulocyte % (Auto) 1, Neutrophils (%) (Auto) 80H, Lymphocytes (%) (Auto) 13, Monocytes (%) (Auto) 6, Eosinophils (%) (Auto) 0, Basophils (%) (Auto) 0, Neutrophils # (Auto) 9.2H, Lymphocytes # (Auto) 1.5, Monocytes # (Auto) 0.7, Eosinophils # (Auto) 0.0, Basophils # (Auto) 0.1, Immature Granulocyte # (Auto) 0.1, Sodium Level 134L, Potassium Level 4.3, Chloride Level 100, Carbon Dioxide Level 24, Anion Gap 10, Blood Urea Nitrogen 23H, Creatinine 0.70, Estimat Glomerular Filtration Rate > 60, BUN/Creatinine Ratio 33, Glucose Level 135H, Lactic Acid Level 1.54, Calcium Level 9.1, Corrected Calcium 9.3, Total Bilirubin 0.5, Aspartate Amino Transf (AST/SGOT) 16, Alanine Aminotransferase (ALT/SGPT) 25, Alkaline Phosphatase 68, Total Protein 6.9, Albumin 3.8 Assessment/Plan Assessment/Plan Admission Diagonsis CT - free air under diaphragm acute abdomen Assessment/Plan CT - free air under diaphragm acute abdomen -likely perforated stomach. Needs emergent surgery -blood pressure was 145/96 at 545 am today, was 100/50 when in the room. Not ta chycardic, not hypoxic on RA. -initial labs not acutely concerning history of lung cancer with mets to brain discovered early may, biopsy not yet done to determine subtype, managed in [place]. -receiving radiation therapy, dexamethasone, ibuprofen, hydrocodone which he states he takes at night for sleep COPD, cardiomyopathy -reported. States he is not taking medications. alcohol abuse, tobacco abuse -states 3 packs/week EtOH; I did not ask 6,12,or 24 pack -1 PPD active smoker ELIZ DAVIS DO 07/18/20 0911: History of Present Illness History of Present Illness Reason for visit/HPI Surgery asked to consult regarding Pneumoperitoneum. HPI per ED: Pt arrival to ER from home via [facility] with complaint of abdominal pain since yesterday afternoon after eating chicken and rice. Pt is a 65 year old male with lung and brain cancer. Pt states that he takes 800 mg of Ibuprofen q4 hours along with dexamethazone. Pt is having severe abdominal pain rated at a 10/10. Pts abdomen is firm, and gaurded. Pt describes pain as a sharp cramp like pain. 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 No nausea fever chills cough shortness of air. He has a history of COPD, lung cancer with mets to brain, cardiomyopathy and follows with primary care and oncology at [place]. No dysuria or diarrhea. Does endorse dark stools. He also endorses taking ibuprofen 800 mg every 4 hours as well as dexamethasone for his brain mets and pain. The patient is DNR When I saw pt he was in moderate distress secondary to pain. Pain meds are barely making it better. CT shows free air. Time Seen by a Provider: 07:49 Allergies and Home Medications Allergies Coded Allergies: No Known Drug Allergies (Unverified , 05/28/20) Patient Home Medication List Home Medication List Reviewed: Yes Past Stjbyay-Jrhins-Tspcqd Hx Patient Social History Alcohol Use?: Yes Surgeries History of Surgeries: Yes (pilonidal cyt, no abdominal surgery) Respiratory History of Respiratory Disorde: Yes (Lung CA) Respiratory Disorders: COPD Cardiovascular History of Cardiac Disorders: Yes Cardiac Disorders: Cardiomyopathy Neurological History of Neurological Disord: No Genitourinary History of Genitourinary Disor: No Gastrointestinal History of Gastrointestinal Di: Yes Gastrointestinal Disorders: Ulcer Musculoskeletal History of Musculoskeletal Dis: Yes Musculoskeletal Disorders: Arthritis Cancer History of Cancer: Yes Cancer: Lung Psychosocial History of Psychiatric Problem: Yes Behavioral Health Disorders: Depression Integumentary History of Skin or Integumenta: No Family Medical History Significant Family History: Cerebral Aneurysm (mother) Review of Systems Constitutional: No chills; diaphoresis; No fever; weakness EENTM: No vision loss, No throat pain Respiratory: No cough; short of breath (unchanged from baseline) Cardiovascular: No chest pain, No palpitations Gastrointestinal: abdominal pain (diffuse, worst in epigastric area), constipation (d/t radiation and hydrocodone use); No diarrhea; loss of appetite; No nausea, No vomiting Genitourinary: No dysuria, No hematuria Musculoskeletal: joint pain (chronic), other (denies leg pain, denies arm pain) Skin: No pruritus, No rash Psychiatric/Neurological: Denies Anxiety; Depressed; Denies Seizure, Denies Tremors Pt denies any abnormal bleeding or bruising Physical Exam General Appearance: Chronically ill, Moderate Distress Eyes: Bilateral Eye PERRL, Bilateral Eye EOMI HEENT: Moist Mucous Membranes, Other (poor dentition) Neck: Non Tender; No Thyromegaly Respiratory: Chest Non Tender, Lungs Clear, Normal Breath Sounds, No Accessory Muscle Use, No Respiratory Distress Cardiovascular: Regular Rate, Rhythm, No Murmur Gastrointestinal: No Organomegaly; No Distended; Guarding, Rebound, Tenderness (severe diffuse abdominal tenderness) Rectal: Deferred Back: No CVA Tenderness, No Vertebral Tenderness Extremity: No Calf Tenderness, Pedal Edema (1+ bilaterally) Neurologic/Psychiatric: Alert, Oriented x3, No Motor/Sensory Deficits, Normal 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 TECHNIQUE: Multiple contiguous axial images were obtained through the abdomen and pelvis without the use of intravenous contrast. Auto Exposure Controls were utilized during the CT exam to meet ALARA standards for radiation dose reduction. INDICATION: Severe abdominal pain. Concern for free intraperitoneal air. COMPARISON: Chest radiograph 07/18/2020. FINDINGS: Mass in the anterior right lung base measuring up to 5.1 cm. There is also diffuse airspace consolidation in the lung bases. Moderate amount of free intraperitoneal air under the diaphragm anteriorly. No focal bowel perforation is identified. No free fluid. No evidence of bowel obstruction. The liver, gallbladder, pancreas, spleen, adrenals, kidneys, collecting systems and bladder are negative. No evidence of appendicitis. No lymphadenopathy. No acute osseous findings. IMPRESSION: 1. Moderate amount of free intraperitoneal air primarily layering around the diaphragm and stomach. No discrete bowel perforation is identified. This air seems to be localized primarily about the stomach which may be the site of hollow viscus perforation. 2. Mass in the right lung base measuring up to 5.1 cm. There is also additional interstitial and airspace opacities in the lung base which could represent pneumonitis versus atelectasis. Findings discussed with Dr. Armen Hoffmann at 6:40 AM on 07/18/2020. Dictated by: Dictated on workstation # [id number] Dict: 07/18/20 0630 Trans: 07/18/20 0837 SARVANI [id number] Interpreted by: HANNAH MEREDITH MD Electronically signed by: HANNAH MEREDITH MD 07/18/20 0837 Assessment/Plan Assessment/Plan Admission Diagonsis Gastric Perforation Pneumoperitoneum Admission Status: Inpatient Order (span 2 midnights) Reason for Inpatient Admission: Pt has a gastric perforation which will required repair and then NPO with NGT for 4 days before we try to check for leak. Assessment/Plan Gastric Perforation Pneumoperitoneum Lung CA with mets to brain Pt will need Exploratory Laparotomy with oversew of Gastric perforation and will probably do a Modified Burton Patch. Discussed surgery, risks and complications with pt; including but not limited to pain, bleeding, infection, scar, damage to intestine and need for further procedure. All questions answered to pt's satisfaction. This is an emergency surgery because of his abdominal pain and free air. He will get IV fluids, IV ABX, pain control, anti-emetics as needed. Supervisory-Addendum Brief Verification & Attestation Participated in pt care: history, MDM, physical Personally performed: exam, history, MDM Care discussed with: Medical Student Procedures: n/a Verification and Attestation of Medical Student E/M Service A medical student performed and documented this service. I then reviewed and verified all information documented by the medical student and made modifications to such information, when appropriate. I personally performed a physical exam, medical decision making and then discussed any differences between the notes and made revisions as necessary to create one note. Eliz Davis , 07/18/20 , 09:16 ENMA HULL MED STUDENT Jul 18, 2020 08:32 ELIZ DAVIS DO Jul 18, 2020 09:11
[2020-07-18] MEDS ORDERED: IBUP-1780 PO (08:33)
[2020-07-18] MEDS ORDERED: DEXA4TAB PO (08:33)
[2020-07-18] MEDS ORDERED: TRZ50T PO (08:33)
[2020-07-18] MEDS ORDERED: NICO-685 TD (08:33)
[2020-07-18] MEDS ORDERED: LIDOCAINE PF 2% 5 ML (XYLOCAINE) VIAL ONE (08:37)
[2020-07-18] MEDS ORDERED: ROCURONIUM 10 MG/ML 5 ML SYRINGE IV ONE (08:37)
[2020-07-18] MEDS ORDERED: proPOfol 200 MG/20 ML (DIPRIVAN) VIAL IV ONE (08:37)
[2020-07-18] MEDS ORDERED: SEVOFLURANE (ULTANE) 15 ML INHAL SOLN ONE (08:37)
[2020-07-18] MEDS ORDERED: GLYCOPYRROLATE 0.2 MG/ML (ROBINUL) 2 ML VIAL ONE (08:37)
[2020-07-18] MEDS ORDERED: ONDANSETRON 4 MG/2 ML (SDV) Z0FRAN ONE (08:37)
[2020-07-18] MEDS ORDERED: NEOSTIGMINE 3 MG/3 ML VIAL ONE (08:37)
[2020-07-18] MEDS ORDERED: fentaNYL INJ 100 MCG/2 ML AMP ONE (08:37)
[2020-07-18] MEDS ORDERED: MIDAZOLAM 2 MG/2 ML (VERSED) VIAL ONE (08:38)
[2020-07-18] MEDS ORDERED: LIDOCAINE/EPI 1%-1:100,000 (XYLOCAINE) 20ML ONE (08:42)
[2020-07-18] MEDS ORDERED: LACTATED RINGERS 1,000 ML IV STA (09:06)
[2020-07-18] MEDS ORDERED: ONDANSETRON 4 MG/2 ML (SDV) Z0FRAN IVP PRN ×2 (09:30→10:30)
[2020-07-18] MEDS ORDERED: HYDROmorphone 2 MG/ML VIAL (DILAUDID) IV ONE (09:30)
[2020-07-18] MEDS ORDERED: morphine INJ 10 MG/ML 1ML (SYR OR VIAL) IVP ONE (09:30)
[2020-07-18] MEDS ORDERED: LACTATED RINGERS 1,000 ML IV PRN (09:30)
[2020-07-18] MEDS ORDERED: PHENYLEPHRINE 100 MCG/ML 10 ML (ANESTHESIA) SYR ONE (09:32)
[2020-07-18] MEDS ORDERED: PHENYLEPHRINE INJ 10 MG/ML (FOR DRIP KITS ONLY) ONE (09:32)
--- NOTE | 2020-07-18 10:21 | Progress Note-Post Operative ---
Post-Operative Progess Note Surgeon (s)/Estimator Binding (s) Surgeon ELIZ DAVIS DO Estimator Binding: Eyad Pre-Operative Diagnosis Pneumoperitoneum, suspected Gastric perf Post-Operative Diagnosis Gastric perforation Procedure & Operative Findings Date of Procedure 07/18/20 Procedure Performed/Findings Ex Lap with Gastric bx Modified radha patch Anesthesia Type GET Estimated Blood Loss Estimated blood loss (mL): scant Specimens/Packing Specimens Removed gastric bx ELIZ DAVIS DO Jul 18, 2020 10:21
[2020-07-18] MEDS: LACTATED RINGERS 1,000 ML IV SCH ×3 (11:12→22:14)
[2020-07-18] MEDS: metroNIDAZOLE 500MG/100ML IVPB 100 ML IV SCH ×2 (12:00→17:59)
--- NOTE | 2020-07-18 13:46 | Diagnostic Imaging Report ---
CHEST 1 VIEW, AP/PA ONLY INDICATION: NG tube placement. COMPARISON: Chest radiograph of earlier same day. FINDINGS: Enteric tube has tip and sidehole terminating in the region of the proximal stomach. Laparotomy abby are noted. There is a drain present in the upper abdomen. Right basilar masslike opacity is unchanged. No pneumothorax or pleural effusion. Stable enlargement of the cardiac silhouette. IMPRESSION: 1. NG tube has tip in the region of the proximal stomach. 2. No change in the right basilar lung mass highly concerning for primary lung cancer. CT chest with IV contrast is suggested for further characterization as patient's condition permits. Dictated by: Dictated on workstation # [id number]
[2020-07-18] MEDS ORDERED: PIPERACILLIN/TAZO 4.5 GM/NS 100 ML IV NR ×2 (14:15)
[2020-07-18] MEDS: FLUCONAZOLE 200 MG/100 ML 100 ML IV SCH (14:23)
[2020-07-18] MEDS: morphine INJ 4 MG/ML 1 ML (VIAL/SYRINGE) IVP PRN (19:27)
[2020-07-18] MEDS: PIPERACILLIN/TAZOBACTAM (BULK) 4.5 GM in NS (IVPB) 100 ML IV SCH (21:08)
[2020-07-18] MEDS: PANTOPRAZOLE 40 MG (PROTONIX) VIAL IVP SCH (21:09)
[2020-07-19] MEDS: morphine INJ 4 MG/ML 1 ML (VIAL/SYRINGE) IVP PRN ×5 (00:57→20:47)
--- NOTE | 2020-07-19 01:31 | OPERATIVE REPORT ---
DATE OF SERVICE: PREOPERATIVE DIAGNOSES: Pneumoperitoneum, peritonitis. POSTOPERATIVE DIAGNOSES: Gastric perforation, pneumoperitoneum and peritonitis. PROCEDURES: 1. Modified Burton patch repair of gastric perforation. 2. Gastric biopsy. SURGEON: Eliz Sow DO SUPPORT REPRESENTATIVE: Ken Castano DO. ANESTHESIA: General endotracheal tube. SPECIMEN: Biopsy from the stomach. BLOOD LOSS: Scant. FLUIDS: Per anesthesia. POSTOPERATIVE CONDITION: Stable. INDICATION FOR PROCEDURE: The patient is a 65-year-old male who had abdominal pain, peritonitis, rigid abdomen and pneumoperitoneum on CT, thought I saw a gastric perforation. FINDINGS: The patient had a gastric perforation with bile in the abdomen and prepared this was a modified Burton patch and did a gastric biopsy to get a diagnosis. The patient also has history of metastatic lung CA and is getting radiation treatments. PROCEDURE NOTE: After informed consent was obtained, the patient was brought to the operating room, placed on the table in supine position, sterilely prepped and draped in normal fashion. Midline incision was made just below the xiphoid with a #10 blade, carried down through the skin into subcutaneous tissue, then deepened down to subcutaneous tissue with Bovie electrocautery down to fascia. Fascia was incised with Bovie electrocautery, and then bluntly entered the abdomen, swept a finger around, then increased superiorly and inferiorly protecting the bowel with my fingers using Bovie electrocautery to open the fascia. Once it was opened, then we could visualize bile and some inflammatory changes, able to grasp the stomach with a Jeremías and pulled up into the incision and able to easily find the small gastric perforation, did a biopsy, a portion of the stomach was taken using Metzenbaum scissors, then elected to close this with a 3-0 Vicryl [id number] suture and then omental patch tacked this down. This closed nicely, then made a small stab incision in the right upper quadrant and brought in pean to grasp drain and then pulled the drain out, sutured this in place with 2-0 nylon, placed this up under the liver and near the stomach where the perforation was. At this point, copiously irrigated with a liter of warm normal saline, suctioned this out until it was clear and at this point then closed the midline incision with #1 double stranded PDS suture running from the superior portion to inferior portion tying to itself. Irrigated with normal saline and then closing the skin with abby. Area was cleaned and dried, dressings placed. The patient tolerated the procedure and transferred to recovery room in stable condition. Sponge, instrument and needle count correct at the end of the case. Dr. Castano assisted in this case helping to make incision, helping to close the incision, identify anatomy, help with the biopsy. Job ID: [id number] DocumentID: [id number] Dictated Date: 07/18/2020 16:54:43 Foam Machine Operator Date: 07/19/2020 01:29:43 Dictated By: ELIZ SOW DO
[2020-07-19] MEDS: PIPERACILLIN/TAZOBACTAM (BULK) 4.5 GM in NS (IVPB) 100 ML IV SCH ×3 (05:05→20:37)
--- NOTE | 2020-07-19 06:37 | Anesthesia-General Post-Op ---
General Patient Condition Mental Status/LOC: Same as Preop Cardiovascular: Satisfactory Nausea/Vomiting: Absent Respiratory: Satisfactory Pain: Controlled Complications: Absent Post Op Complications Complications None Follow Up Care/Instructions Patient Instructions None needed. Anesthesia/Patient Condition Patient Condition Patient is doing well, no complaints, stable vital signs, no apparent adverse anesthesia problems. No complications reported per nursing. AMY SALEEM CRNA Jul 19, 2020 06:37
[2020-07-19] MEDS: LACTATED RINGERS 1,000 ML IV SCH ×3 (06:38→20:37)
[2020-07-19] MEDS: PANTOPRAZOLE 40 MG (PROTONIX) VIAL IVP SCH ×2 (09:39→20:38)
[2020-07-19] MEDS: ENOXAPARIN 40 MG/0.4 ML (LOVENOX) SYR SC SCH (09:39)
[2020-07-19] MEDS ORDERED: RT-ALBUINH INH (10:00)
[2020-07-19] MEDS ORDERED: ACHD5005 PO (10:00)
[2020-07-19] MEDS ORDERED: DOCU100T2 PO (10:02)
--- NOTE | 2020-07-19 10:34 | Consultation - Hospitalist ---
HPI History of Present Illness: HPI/Chief Complaint CC: Perforated gastric ulcer HPI: This is a 65yoWM clinic pt of Dr. Rodrigez and Dr. [facility] who presented to the ER with abdominal pain found to have a gastric ulcer perforation who was taken to surgery urgently by Dr. Sow patch placed and currently he is stable with an NG tube. He was recently diagnosed with brain cancer in May, had radiation treatment and remains on Decadron. He did want to restart his Decadron but I did curriculum counselor him on the fact that steroids has a lot to do with gastric ulcer formation and he understands that and he will hold off. He does currently smoke and he does have coarse breath sounds and I will go ahead and start nebulizer treatments and be high alert for pneumonia. Source: patient Exam Limitations: no limitations Date Seen 07/19/20 Attending Physician Ayden Sow DO PCP Yesenia Cotter DO Referring Physician Date of Admission Jul 18, 2020 at 11:32 Home Medications & Allergies Home Medications Reviewed patient Home Medication Reconciliation performed by pharmacy medication reconciliations cartographic technician and/or nursing. Patients Allergies have been reviewed. Allergies Allergies Coded Allergies No Known Drug Allergies (Unverified05/28/20) Patient Social History Marrital Status: single Employed/Student: retired Tobacco Use?: Yes Smoking Status: Current Everyday Smoker (Pack per day) Use of E-Cig and/or Vaping dev: No Alcohol Use?: Yes Immunizations Up To Date Hepatitis A: No Hepatitis B: No Past Medical History Brain cancer 05/2020 Family Medical History Family Hx: NC Review of Systems Constitutional: see HPI, malaise, weakness Respiratory: cough, dyspnea on exertion Gastrointestinal: abdominal pain, nausea Physical Exam Physical Exam Vital Signs Vital Signs - First Documented 07/18/20 05:46 Temp 34.8 Pulse 90 Resp 20 B/P (MAP) 145/96 (112) Pulse Ox 97 O2 Delivery Room Air Capillary Refill : Less Than 3 Seconds Height, Weight, BMI Height: '" Weight: lbs. oz. kg; 22.00 BMI Method: General Appearance: No Apparent Distress, WD/WN, Chronically ill, Mild Distress Eyes: Bilateral Eye PERRL, Bilateral Eye EOMI HEENT: Moist Mucous Membranes, Other (poor dentition) Neck: Non Tender; No Thyromegaly Respiratory: Chest Non Tender, No Accessory Muscle Use, No Respiratory Distress, Crackles, Decreased Breath Sounds, Wheezing Cardiovascular: Regular Rate, Rhythm, No Murmur Gastrointestinal: No Organomegaly; No Distended; Guarding, Rebound, Tenderness (severe diffuse abdominal tenderness) Rectal: Deferred Back: No CVA Tenderness, No Vertebral Tenderness Extremity: No Calf Tenderness, Pedal Edema (1+ bilaterally) Neurologic/Psychiatric: Alert, Oriented x3, No Motor/Sensory Deficits, Normal 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 Assessment/Plan Assessment and Plan Assess & Plan/Chief Complaint Assessment: Gastric ulcer perforation Brain cancer 05/2020 Steroid use holding due to gastric ulcer Smoker Coarse BS on lung exam ordered nebs Alcoholism Plan: Nebs Hold Decadron CXR Labs Diagnosis/Problems Diagnosis/Problems (1) Perforated ulcer Status: Acute (2) Very heavy cigarette smoker (40 or more per day) Status: Acute (3) Alcoholism Status: Acute (4) COPD (chronic obstructive pulmonary disease) Status: Acute KIZZY GUAMAN DO Jul 19, 2020 10:34
--- NOTE | 2020-07-19 10:39 | Progress Note - Surgery ---
ENMA HULL MED STUDENT 07/19/20 1039: Subjective Date Seen by a Provider: Jul 19, 2020 Time Seen by a Provider: 09:45 Subjective/Events-last exam Dewayne Jara states he has had abdominal pain postoperatively as well as increased abdominal pain with deep breathing and coughing. He denies fever, chills, and shortness of breath beyond his usual. States his coughing has been the same as with his COPD and lung cancer, no increased coughing. States he has not passed gas yet. Focused Exam Lactate Level 07/18/20 05:58: Lactic Acid Level 1.54 Objective Exam Vital Signs Date Time Temp Pulse Resp B/P (MAP) Pulse Ox O2 Delivery O2 Flow Rate FiO2 07/19/20 07:21 36.4 75 20 119/68 94 Nasal Cannula 2.00 07/19/20 04:58 36.7 97 20 125/73 96 Nasal Cannula 2.00 07/19/20 01:30 36.4 07/19/20 00:57 36.4 82 20 115/77 96 Nasal Cannula 2.00 07/18/20 22:54 Nasal Cannula 2.00 07/18/20 20:45 Nasal Cannula 2.00 07/18/20 20:00 36.2 85 20 99/68 97 Nasal Cannula 2.00 07/18/20 19:55 36.2 07/18/20 16:00 36.2 85 20 99/68 97 Nasal Cannula 2.00 07/18/20 12:09 14 91/64 96 Nasal Cannula 2.00 07/18/20 11:30 36.3 20 110/64 (79) 95 Nasal Cannula 2 07/18/20 11:30 Nasal Cannula 2 07/18/20 11:20 Nasal Cannula 2 07/18/20 11:20 20 108/62 (77) 95 Nasal Cannula 2 07/18/20 11:10 20 106/59 (75) 97 OxyMask 2 07/18/20 11:05 Nasal Cannula 2 07/18/20 11:00 20 99/74 (82) 95 Nasal Cannula 2 07/18/20 10:50 OxyMask 6 07/18/20 10:50 20 107/58 (74) 97 OxyMask 6 07/18/20 10:45 20 110/63 (79) 97 OxyMask 6 4/19/21 10:36 OxyMask 6 07/18/20 10:36 36.4 20 117/67 (84) 96 OxyMask 6 I & O 07/19/20 07:00 Intake Total 1200 ml Output Total 660 ml Balance 540 ml Capillary Refill : Less Than 3 Seconds General Appearance: Chronically ill, Moderate Distress HEENT: Moist Mucous Membranes, Other (poor dentition. NG tube in place. ) Neck: Non Tender; No Thyromegaly Respiratory: Chest Non Tender, Lungs Clear, Normal Breath Sounds, No Accessory Muscle Use, No Respiratory Distress Cardiovascular: Regular Rate, Rhythm, No Murmur Peripheral Pulses: 2+ Radial Pulses (R), 2+ Radial Pulses (L) Gastrointestinal: No guarding, No rebound; tenderness (moderate diffuse tenderness, more severe near the midline incision site. Incision dressing with some serosanguinous drainage. SILKE drain with approximately 5 mL pink serosanguinous fluid. Patient states the drain was changed earlier this morning. increased abdominal warmth.) Extremity: No Calf Tenderness, Pedal Edema (2+ bilaterally) Neurologic/Psychiatric: Alert, Oriented x3, No Motor/Sensory Deficits, Normal Mood/Affect, float phlebotomist II-XII Norm as Tested Skin: Normal Color, Warm/Dry Lymphatic: No Adenopathy (neck) Results Lab Microbiology 07/18/20 Blood Culture - Preliminary, Resulted Gram Positive Cocci See Comments Assessment/Plan Assessment/Plan Assessment/Plan Gastric Perforation s/p ex lap with oversew of Gastric perforation and modified Burton Patch NG tube in place. NPO. Pneumoperitoneum Lung CA with mets to brain borderline cardiomegaly on initial CXR IV fluids, IV ABX, pain control, anti-emetics as needed. Edema now 2+, increased compared to preoperatively. Obtain CMP to assess renal function tomorrow. Lungs sound clear, no crackles. SILKE drain output is pink, continue to monitor volume and amount watch for signs/symptoms of fever. ELIZ DAVIS DO 07/19/20 1132: Subjective Time Seen by a Provider: 09:17 Subjective/Events-last exam Pt seen and examined, states pain is mostly controlled. His main worry was starting his steroid back up, it is for brain swelling after radiation; he also states it causes severe drooling. He is also concerned about his breathing. Review of Systems Pulmonary: Dyspnea; No Cough Cardiovascular: No: Chest Pain, Palpitations Gastrointestinal: Abdominal Pain; No: Nausea, Vomiting Objective Exam General Appearance: Chronically ill HEENT: Moist Mucous Membranes Respiratory: Lungs Clear, Normal Breath Sounds, No Accessory Muscle Use, No Respiratory Distress Cardiovascular: Regular Rate, Rhythm, No Murmur Gastrointestinal: No distended, No guarding, No rebound; tenderness (moderate diffuse tenderness, more severe near the midline incision site. Incision dressing with some serosanguinous drainage. SILKE drain with approximately 5 mL pink serosanguinous fluid. Patient states the drain was changed earlier this morning. increased abdominal warmth.) Assessment/Plan Assessment/Plan Assessment/Plan Gastric Perforation s/p ex lap with oversew of Gastric perforation and modified Burton Patch, NG tube in place. NPO. IV fluids, IV ABX, pain control, anti-emetics as needed. SILKE drain output is pink, continue to monitor volume and amount watch for signs/symptoms of fever. Lung CA with mets to brain borderline cardiomegaly on initial CXR, will restart Steroids but IV Bacteremia - 3 of 3 bottles positive has been sent out for culture and sensitivity, will adjust ABX when we have more details Edema now 2+, increased compared to preoperatively. Obtain CMP to assess renal function tomorrow. Lungs sound clear, no crackles. Supervisory-Addendum Brief Verification & Attestation Participated in pt care: history, MDM, physical Personally performed: exam, history, MDM Care discussed with: Medical Student Procedures: n/a Verification and Attestation of Medical Student E/M Service A medical student performed and documented this service. I then reviewed and verified all information documented by the medical student and made modifications to such information, when appropriate. I personally performed a physical exam, medical decision making and then discussed any differences between the notes and made revisions as necessary to create one note. Eliz Davis , 07/19/20 , 11:32 ENMA HULL MED STUDENT Jul 19, 2020 10:39 ELIZ DAVIS DO Jul 19, 2020 11:32
[2020-07-19] MEDS: FLUCONAZOLE 200 MG/100 ML 100 ML IV SCH (14:39)
[2020-07-19] MEDS: RT-ALBUTEROL/IPRATROPIUM 3 ML (DUONEB) VIAL INH SCH ×5 (14:44→21:27)
[2020-07-20] MEDS: morphine INJ 4 MG/ML 1 ML (VIAL/SYRINGE) IVP PRN ×5 (00:27→23:16)
[2020-07-20] MEDS: LACTATED RINGERS 1,000 ML IV SCH ×4 (01:55→21:55)
[2020-07-20] MEDS: PIPERACILLIN/TAZOBACTAM (BULK) 4.5 GM in NS (IVPB) 100 ML IV SCH ×3 (04:35→19:27)
[2020-07-20 06:40] LABS: BASOPHILS % (AUTO) 0 % (0-10); EOSINOPHILS % (AUTO) 0 % (0-10); HEMATOCRIT 43 % (40-54); HEMOGLOBIN 14.2 g/dL (13.3-17.7); LYMPHOCYTES % (AUTO) 8 % (12-44); MEAN CORPUSCULAR HEMOGLOBIN 30 pg (25-34); MEAN CORPUSCULAR HGB CONC 33 g/dL (32-36); MEAN CORPUSCULAR VOLUME 92 fL (80-99); MEAN PLATELET VOLUME 9.4 fL (9.0-12.2); MONOCYTES # (AUTO) 0.4 10^3/uL (0.0-1.0); MONOCYTES % (AUTO) 3 % (0-12); NEUTROPHILS # (AUTO) 11.6 10^3/uL (1.8-7.8); NEUTROPHILS % (AUTO) 88 % (42-75); PLATELET COUNT 247 10^3/uL (130-400); WHITE BLOOD COUNT 13.2 10^3/uL (4.3-11.0)
[2020-07-20] MEDS: RT-ALBUTEROL/IPRATROPIUM 3 ML (DUONEB) VIAL INH SCH ×5 (06:46→21:39)
[2020-07-20 06:59] LABS: ALBUMIN 3.2 GM/DL (3.2-4.5); CHLORIDE 99 MMOL/L (98-107); POTASSIUM 4.2 MMOL/L (3.6-5.0); SODIUM 133 MMOL/L (135-145)
[2020-07-20 07:00] LABS: CALCIUM 9.2 MG/DL (8.5-10.1)
[2020-07-20 07:01] LABS: GLUCOSE 64 MG/DL (70-105)
[2020-07-20 07:02] LABS: TOTAL PROTEIN 6.5 GM/DL (6.4-8.2)
[2020-07-20 07:03] LABS: BILIRUBIN,TOTAL 0.6 MG/DL (0.1-1.0); CARBON DIOXIDE 24 MMOL/L (21-32)
[2020-07-20 07:05] LABS: ALKALINE PHOSPHATASE 56 U/L (40-136); CREATININE SERUM 0.63 MG/DL (0.60-1.30); GFR ESTIMATED > 60
[2020-07-20 07:06] LABS: BUN/CREATININE RATIO 33
[2020-07-20 07:08] LABS: ALANINE AMINOTRANSFERASE 27 U/L (0-55)
--- NOTE | 2020-07-20 07:31 | Progress Note - Surgery ---
ENMA HULL MED STUDENT 07/20/20 0731: Subjective Date Seen by a Provider: Jul 20, 2020 Time Seen by a Provider: 07:10 Subjective/Events-last exam Dewayne Jara states he has 5/10 abdominal pain at rest, worse with movement or coughing. Says he has not yet passed gas or bowels. does feel bloated. Complains of nasal congestion after using bronchodilator therapy, says it is worsened by NG tube preventing clearing of nose. Admits he is coughing up more today compared to prior days but states it is his baseline with COPD and lung cancer. States he is eager to start PT today but has not been up walking yet, except to bedside chair. Focused Exam Lactate Level 07/18/20 05:58: Lactic Acid Level 1.54 Objective Exam Vital Signs Date Time Temp Pulse Resp B/P (MAP) Pulse Ox O2 Delivery O2 Flow Rate FiO2 07/20/20 06:47 93 Nasal Cannula 5.00 07/20/20 04:00 36.1 88 18 158/77 93 Nasal Cannula 1.00 07/20/20 00:00 36.0 90 18 132/81 95 Nasal Cannula 1.00 07/19/20 21:29 36.3 07/19/20 21:04 Nasal Cannula 1.00 07/19/20 21:00 Nasal Cannula 2.00 07/19/20 20:47 36.3 07/19/20 19:53 36.3 90 18 128/60 95 Nasal Cannula 1.00 07/19/20 19:34 36.6 07/19/20 18:28 Nasal Cannula 1.00 07/19/20 16:00 36.6 80 20 120/64 93 Nasal Cannula 1.00 07/19/20 14:50 90 Nasal Cannula 4.00 07/19/20 11:35 35.8 87 20 116/71 95 Nasal Cannula 1.00 07/19/20 09:00 94 Room Air I & O 07/20/20 07:00 Intake Total 0 ml Output Total 2095 ml Balance -2095 ml Capillary Refill : Less Than 3 Seconds General Appearance: No Apparent Distress, Chronically ill HEENT: Other (poor dentition) Neck: Non Tender; No Thyromegaly Respiratory: Chest Non Tender, No Accessory Muscle Use, No Respiratory Di stress; No Crackles; Wheezing, Other (coarse breath sounds, especially with expiration. ) Cardiovascular: Regular Rate, Rhythm, No Murmur, Extra Beats Peripheral Pulses: 2+ Radial Pulses (R), 2+ Radial Pulses (L) Gastrointestinal: abnormal bowel sounds (hypoactive RLQ LUQ and LLQ. normal in RUQ. ), distended; No guarding, No rebound; tenderness (moderate midline abdominal tenderness near incision, more severe tenderness at RUQ. Midline dressing with some dried serosanguinous drainage at lower end. SILKE drain with <5 mL pink serosanguinous fluid. ) Extremity: No Calf Tenderness, Pedal Edema (trace bilaterally) Neurologic/Psychiatric: Alert, Oriented x3, No Motor/Sensory Deficits, Normal Mood/Affect, pecan mallow dipper II-XII Norm as Tested Skin: Normal Color, Diaphoresis Lymphatic: No Adenopathy (neck, groin) Results Lab Laboratory Tests 07/20/20 06:01: White Blood Count 13.2H, Red Blood Count 4.70, Hemoglobin 14.2, Hematocrit 43, Mean Corpuscular Volume 92, Mean Corpuscular Hemoglobin 30, Mean Corpuscular Hemoglobin Concent 33, Red Cell Distribution Width 17.2H, Platelet Count 247, Mean Platelet Volume 9.4, Immature Granulocyte % (Auto) 1, Neutrophils (%) (Auto) 88H, Lymphocytes (%) (Auto) 8L, Monocytes (%) (Auto) 3, Eosinophils (%) (Auto) 0, Basophils (%) (Auto) 0, Neutrophils # (Auto) 11.6H, Lymphocytes # (Auto) 1.0, Monocytes # (Auto) 0.4, Eosinophils # (Auto) 0.0, Basophils # (Auto) 0.0, Immature Granulocyte # (Auto) 0.1, Sodium Level 133L, Potassium Level 4.2, Chloride Level 99, Carbon Dioxide Level 24, Anion Gap 10, Blood Urea Nitrogen 21H, Creatinine 0.63, Estimat Glomerular Filtration Rate > 60, BUN/Creatinine Ratio 33, Glucose Level 64L, Calcium Level 9.2, Corrected Calcium 9.8, Total Bilirubin 0.6, Aspartate Amino Transf (AST/SGOT) 21, Alanine Aminotransferase (ALT/SGPT) 27, Alkaline Phosphatase 56, Total Protein 6.5, Albumin 3.2 Microbiology 07/18/20 Blood Culture - Preliminary, Resulted Gram Positive Cocci See Comments Assessment/Plan Assessment/Plan Assessment/Plan Gastric Perforation s/p ex lap with oversew of Gastric perforation and modified Burton Patch, NG tube in place. NPO. IV fluids, IV ABX, pain control, anti-emetics as needed. SILKE drain output is pink, continue to monitor volume and amount watch for signs/symptoms of fever. Lung CA with mets to brain chronic cough, sputum production, coarse breath sounds. CXR ordered by mahamed, not yet completed Extra beats heard on auscultation of heart borderline cardiomegaly on initial CXR, patient reported hx of "cardiomyopathy" consult cardiology Bacteremia - 3 of 3 bottles positive has been sent out for culture and sensitivity, will adjust ABX when we have more details Edema now 2+, increased compared to preoperatively. Obtain CMP to assess renal function tomorrow. Lungs sound clear, no crackles. ELIZ DAVIS DO 07/20/20 1238: Subjective Time Seen by a Provider: 10:37 Subjective/Events-last exam Pt seen and examined, states breathing is better than yesterday. Pain mostly controlled. Review of Systems Pulmonary: Dyspnea, Cough Cardiovascular: No: Chest Pain, Palpitations Gastrointestinal: Abdominal Pain; No: Nausea, Vomiting Objective Exam General Appearance: No Apparent Distress, Chronically ill Respiratory: No Accessory Muscle Use, No Respiratory Distress; No Crackles; Wheezing, Other (coarse breath sounds, especially with expiration. ) Cardiovascular: Regular Rate, Rhythm Gastrointestinal: soft, abnormal bowel sounds (hypoactive RLQ LUQ and LLQ. normal in RUQ. ), distended; No guarding, No rebound; tenderness (moderate midline abdominal tenderness near incision, more severe tenderness at RUQ. Midline dressing with some dried serosanguinous drainage at lower end. SILKE drain with <5 mL pink serosanguinous fluid. ), other (SILKE with serous fluid) Assessment/Plan Assessment/Plan Assessment/Plan Gastric Perforation -s/p ex lap with oversew of Gastric perforation and modified Burton Patch, NG tube in place. NPO. IV fluids, IV ABX, pain control, anti- emetics as needed. SILKE drain output is pink, continue to monitor volume and amount watch for signs/symptoms of fever. Lung CA with mets to brain - chronic cough, sputum production, coarse breath sounds. CXR ordered Bacteremia - 3 of 3 bottles positive has been sent out for culture and sensitivi ty, will adjust ABX when we have more details Supervisory-Addendum Brief Verification & Attestation Participated in pt care: history, MDM, physical Personally performed: exam, history, MDM Care discussed with: Medical Student Procedures: n/a Verification and Attestation of Medical Student E/M Service A medical student performed and documented this service. I then reviewed and verified all information documented by the medical student and made modifications to such information, when appropriate. I personally performed a physical exam, medical decision making and then discussed any differences between the notes and made revisions as necessary to create one note. Eliz Davis , 07/20/20 , 12:39 ENMA HULL MED STUDENT Jul 20, 2020 07:31 ELIZ DAVIS DO Jul 20, 2020 12:38
[2020-07-20 08:00] VITALS: BP 129/75
[2020-07-20] MEDS: PANTOPRAZOLE 40 MG (PROTONIX) VIAL IVP SCH ×2 (08:32→19:27)
--- NOTE | 2020-07-20 09:03 | Diagnostic Imaging Report ---
Indication: Pneumonia. Time of exam 8:57 AM Correlation is made with prior chest from 07/18/2020. Heart size normal. Area of opacity in the right base concerning for a mass persists. There is a new infiltrate in the right upper lobe projected in the right mid lung field since prior study consistent with pneumonia. There is some infiltrate or atelectasis in the left base as well, obscuring left hemidiaphragm. No pneumothorax is seen. IMPRESSION: Developing infiltrate in right upper lobe when compared to examination 2 days earlier. Dictated by: Dictated on workstation # [id number]
--- NOTE | 2020-07-20 10:07 | Physical Therapy Evaluation ---
PT Evaluation-General Medical Diagnosis Admission Date Jul 18, 2020 at 11:32 Medical Diagnosis: Perforated Ulcer Onset Date: Jul 18, 2020 Therapy Diagnosis Therapy Diagnosis: decreased functional mobility Precautions Precautions/Isolations: Fall Prevention, Standard Precautions Referral Physician: Juanjose Reason for Referral: Evaluation/Treatment Medical History Pertinent Medical History: CAD, COPD, HTN, Smoking Additional Medical History Brain/Lung Cancer, chemo/radiation treatment, CTS Reviewed History: Yes Social History Home: Single Level Current Living Status: Other Family Entry Into Home: Stairs With Railing PT Steps Into Home: 5 Prior Prior Level of Function SCALE: Activities may be completed with or without assistive devices. 0-Okkuszbwjw-uecjlnz completes the activity by him/herself with no assistance from a helper. 5-Set-up or Clean-up Assistance-helper sets up or cleans up; patient completes activity. Meeker assists only prior to or following the activity. 4-Supervision or Touching Assistance-helper provides verbal cues and/or touching/steadying and/or contact guard assistance as patient completes activity. Assistance may be provided throughout the activity or intermittently. 3-Partial/Moderate Assistance-helper does LESS THAN HALF the effort. Meeker lifts, holds or supports trunk or limbs, but provides less than half the effort. 2-Substantial/Maximal Assistance-helper does MORE THAN HALF the effort. Meeker lifts or holds trunk or limbs and provides more than half the effort. 5-Ijzcylcww-izrtyc does ALL the effort. Patient does none of the effort to complete the activity. Or, the assistance of 2 or more helpers is required for the patient to complete the activity. If activity was not attempted, code reason: 7-Patient Refused. 9-Not Applicable-not attempted and the patient did not perform the activity before the current illness, exacerbation or injury. 10-Not Attempted due to Environmental Limitations-(lack of equipment, weather restraints, etc.). 88-Not Attempted due to Medical Conditions or Safety Concerns. Bed Mobility: 6 Transfers (B,C,W/C): 6 Gait: 6 Stairs: 6 Indoor Mobility (Ambulation): Independent Stairs: Independent Prior Devices Use: None PT Evaluation-Current Subjective Patient reports 4/10 pain in abdominals. Patient consents to therapy. Pt/Family Goals Return home with PLOF Objective Patient Orientation: Person, Place, Time, Normal For Age Attachments: NG Tube, Oxygen, Drains, Other-See Comments ROM/Strength ROM Lower Extremities WNL Strength Lower Extremities WFL (DF 5/5, hip flexion 4/5, knee flex/ext 4+/5 bilaterally) Integumentary/Posture Integumentary see nursing report Bowel Incontinence: No Bladder Incontinence: No Posture mild kyphosis Sensory Vision: Wears Glasses Hearing: Functional Sensation Right Lower Extremit: Intact Sensation Left Lower Extremity: Intact Transfers Roll Left to Right (QC): 6 Lying to Sitting/Side of Bed(Q: 6 Sit to Stand (QC): 4 (SBA) Gait Does the Patient Walk?: Yes Mode of Locomotion: Walk Anticipated Mode of Locomotion: Walk Walk 10 feet (QC): 4 Walk 50 ft with 2 Turns(QC): 4 Distance: 100' Gait Assistive Device: FWW Comments/Gait Description CGA. Patient reported it felt good to get up and walk. Slow but steady ambulation, wide [place] Balance Sitting Static: Good Sitting Dynamic: Good Standing Static: Good Standing Dynamic: Good Treatment LE strengthenin reps ankle pumps, 20 reps LAQ Assessment/Needs motivated to participate, steady with ambulation Rehab Potential: Good PT Shot Lighter Goals Shot Lighter Goals PT Shot Lighter Goals Time Frame: Jul 27, 2020 Roll Left & Right (QC): 6 Sit to Lying (QC): 6 Lying-Sitting on Side/Bed(QC): 6 Sit to Stand (QC): 6 Chair/Gjz-gr-Mmysi Xfer(QC): 6 Toilet Transfer (QC): 6 Car Transfer (QC): 6 Walk 10 feet (QC): 6 Walk 50ft with 2 Turns (QC): 6 Walk 150 ft (QC): 6 PT Plan Problem List Problem List: Activity Tolerance, Functional Strength, Safety, Balance, Gait, Transfer, Bed Mobility, ROM Treatment/Plan Treatment Plan: Continue Plan of Care Treatment Plan: Bed Mobility, Education, Functional Activity Oli, Functional Strength, Gait, Safety, Therapeutic Exercise, Transfers Treatment Duration: Jul 27, 2020 Frequency: 6 times per week Estimated Hrs Per Day: .25 hour per day Patient and/or Family Agrees t: Yes Safety Risks/Education Patient Education: Gait Training, Transfer Techniques, Correct Positioning, Safety Issues Teaching Recipient: Patient Teaching Methods: Demonstration, Discussion Response to Teaching: Verbalize Understanding, Return Demonstration Discharge Recommendations Plan LE strengthening, gait training, transfers, safety education Time/GCodes Time In: 912 Time Out: 937 Total Billed Treatment Time: 25 Total Billed Treatment 1 visit: EVM: 10' EX: 15' DAVID ALVAREZ PT Jul 20, 2020 10:06
[2020-07-20] MEDS: ENOXAPARIN 40 MG/0.4 ML (LOVENOX) SYR SC SCH (11:16)
--- NOTE | 2020-07-20 11:30 | Progress Note - Hospitalist ---
ASHLEIGH EMERY MED STUDENT 07/20/20 1130: Subjective HPI/CC On Admission Date Seen by Provider: Jul 20, 2020 Time Seen by Provider: 09:00 CC: Perforated gastric ulcer HPI: This is a 65yo[facility] pt of Dr. Rodrigez and Dr. [facility] On[facility] who presented to the ER with abdominal pain found to have a gastric ulcer perforation who was taken to surgery urgently by Dr. Sow patch placed and currently he is stable with an NG tube. He was recently diagnosed with brain cancer in May, had radiation treatment and remains on Decadron. He did want to restart his Decadron but I did drug and alcohol counselor him on the fact that steroids has a lot to do with gastric ulcer formation and he understands that and he will hold off. He does currently smoke and he does have coarse breath sounds and I will go ahead and start nebulizer treatments and be high alert for pneumonia. Subjective/Events-last exam Pt feels much improved today. Coughing and SOB improved per pt. Abd pain continues to improve - 08/08 today. Pt endores frequent use of IS. CXR today showed new developing R upper lobe infiltrate - likely PNA. Review of Systems General: No Chills, No Night Sweats Pulmonary: No Dyspnea, No Cough Cardiovascular: No: Chest Pain, Palpitations Gastrointestinal: Abdominal Pain; No: Nausea, Vomiting Genitourinary: No Dysuria, No Incontinence Focused Exam Lactate Level 07/18/20 05:58: Lactic Acid Level 1.54 Objective Exam Vital Signs Vital Signs Date Time Temp Pulse Resp B/P (MAP) Pulse Ox O2 Delivery O2 Flow Rate FiO2 07/20/20 10:33 93 Nasal Cannula 5.00 07/20/20 08:00 36.5 97 18 129/75 (93) Capillary Refill : Less Than 3 Seconds General Appearance: No Apparent Distress, Chronically ill Neck: Normal Inspection Respiratory: No Accessory Muscle Use, No Respiratory Distress, Crackles, Decreased Breath Sounds Cardiovascular: No Murmur, Irregularly Irregular Gastrointestinal: Soft, Tenderness (diffuse, worse near surgical incision site ) Rectal: Deferred Extremity: Non Tender, No Calf Tenderness Neurologic/Psychiatric: Alert, Oriented x3, No Motor/Sensory Deficits, Normal Mood/Affect Results/Procedures Lab Laboratory Tests 07/20/20 06:01 Patient resulted labs reviewed. Assessment/Plan Assessment and Plan Assess & Plan/Chief Complaint s/p radha patch for perforated gastric ulcer performed 07/18/20 biopsy results at perf site show: fragments of smooth muscle and fibrous tissue with acute and chronic inflammation. NG tube. SILKE drain. morphine for pain. IV zosyn. IS PT/OT and encouraged ambulation blood cultures coag-neg staph likely contamination. PNA 07/20 CXR shows new infiltrates in R upper lobe WBC increased to 13.2 from 11.6 yesterday. IV zosyn for perf should provide more than sufficient coverage. Arrhythmia No known hx - per pt EKG Lung C with brain don COPD alcoholism 1-2 PPD current smoker HTN HLP duodeneb for COPD. pt currently NPO. DVT prophylaxis lovenox. TITA GUAMAN DO 07/21/20 0538: Subjective Subjective/Events-last exam Pt doing a lot better Nebulizers have helped IS use is increasing EKG will be obtained due to irregularity on exam CMP is stable CXR did show infiltrate, he is on Zosyn for the perforated gastric ulcer so he is covered there Review of Systems General: Fatigue Pulmonary: Dyspnea Objective Exam General Appearance: No Apparent Distress, WD/WN, Chronically ill Respiratory: Crackles, Decreased Breath Sounds Cardiovascular: Regular Rate, Rhythm Neurologic/Psychiatric: Alert, Oriented x3 Assessment/Plan Assessment and Plan Assess & Plan/Chief Complaint Gastric ulcer perforation PNA ETOHism Brain cancer Plan: Home meds Monitor closely Supervisory-Addendum Brief Verification & Attestation Participated in pt care: history, MDM, physical Personally performed: exam, history, MDM, supervision of care Care discussed with: Medical Student Procedures: n/a Results interpretation: Verified all documentation Verification and Attestation of Medical Student E/M Service A medical student performed and documented this service in my presence. I reviewed and verified all information documented by the medical student and made modifications to such information, when appropriate. I personally performed the physical exam and medical decision making. Tita Guaman, Jul 21, 2020,05:36 ASHLEIGH EMERY MED STUDENT Jul 20, 2020 11:30 TITA GUAMAN DO Jul 21, 2020 05:38
[2020-07-20 12:00] VITALS: BP 115/72
[2020-07-20 16:00] VITALS: BP 132/70
[2020-07-20] MEDS: FLUCONAZOLE 200 MG/100 ML 100 ML IV SCH (16:48)
[2020-07-20 20:00] VITALS: BP 159/91
[2020-07-21] VITALS (7 sets, daily range): BP systolic 133–154; BP diastolic 76–96
[2020-07-21] MEDS ORDERED: NS (IVPB) 100 ML ONE (01:51)
[2020-07-21] MEDS: RT-ALBUTEROL/IPRATROPIUM 3 ML (DUONEB) VIAL INH SCH ×6 (01:55→22:19)
[2020-07-21] MEDS: PIPERACILLIN/TAZOBACTAM (BULK) 4.5 GM in NS (IVPB) 100 ML IV SCH ×3 (04:11→20:42)
[2020-07-21] MEDS: LACTATED RINGERS 1,000 ML IV SCH ×3 (04:11→19:26)
[2020-07-21 05:48] LABS: BASOPHILS % (AUTO) 0 % (0-10); EOSINOPHILS % (AUTO) 0 % (0-10); HEMATOCRIT 43 % (40-54); HEMOGLOBIN 14.3 g/dL (13.3-17.7); LYMPHOCYTES # (AUTO) 0.8 10^3/uL (1.0-4.0); LYMPHOCYTES % (AUTO) 6 % (12-44); MEAN CORPUSCULAR HEMOGLOBIN 31 pg (25-34); MEAN CORPUSCULAR HGB CONC 33 g/dL (32-36); MEAN CORPUSCULAR VOLUME 92 fL (80-99); MEAN PLATELET VOLUME 9.4 fL (9.0-12.2); MONOCYTES # (AUTO) 0.6 10^3/uL (0.0-1.0); MONOCYTES % (AUTO) 5 % (0-12); NEUTROPHILS # (AUTO) 10.6 10^3/uL (1.8-7.8); NEUTROPHILS % (AUTO) 87 % (42-75); PLATELET COUNT 237 10^3/uL (130-400); WHITE BLOOD COUNT 12.2 10^3/uL (4.3-11.0)
[2020-07-21 05:58] LABS: ALBUMIN 3.1 GM/DL (3.2-4.5)
[2020-07-21 05:59] LABS: CHLORIDE 96 MMOL/L (98-107); POTASSIUM 3.7 MMOL/L (3.6-5.0); SODIUM 132 MMOL/L (135-145)
[2020-07-21 06:00] LABS: CALCIUM 8.9 MG/DL (8.5-10.1)
[2020-07-21 06:01] LABS: GLUCOSE 67 MG/DL (70-105); TOTAL PROTEIN 6.4 GM/DL (6.4-8.2)
[2020-07-21 06:02] LABS: CARBON DIOXIDE 23 MMOL/L (21-32)
[2020-07-21 06:03] LABS: BILIRUBIN,TOTAL 0.8 MG/DL (0.1-1.0)
[2020-07-21 06:04] LABS: ALKALINE PHOSPHATASE 65 U/L (40-136)
[2020-07-21 06:05] LABS: CREATININE SERUM 0.62 MG/DL (0.60-1.30); GFR ESTIMATED > 60
[2020-07-21 06:06] LABS: BUN/CREATININE RATIO 21
[2020-07-21 06:07] LABS: ALANINE AMINOTRANSFERASE 24 U/L (0-55)
[2020-07-21 06:18] LABS: LYMPHOCYTES % (MANUAL) 4 %; MONOCYTES % (MANUAL) 7 %; NEUTROPHILS % (MANUAL) 89 %; RBC MORPH NORMAL
--- NOTE | 2020-07-21 07:46 | Progress Note - Surgery ---
ENMA HULL MED STUDENT 07/21/20 0746: Subjective Date Seen by a Provider: Jul 21, 2020 Time Seen by a Provider: 06:40 Subjective/Events-last exam Dewayne Jara reports he had an episode of left arm and leg tingling last night lasting about 2 minutes with some shaking of the limbs. Says he was conscious for the entire episode. He reports having these episodes with his brain cancer over the past month, initially occurring 3x per day but controlled with steroids to decrease cerebral edema. The patient says he is unable to take deep breaths and states this is not due to pain and is new since the surgery. He states his SOB with normal breathing and his coughing have not worsened since the surgery. The patient reports he has not passed gas or stool. He states his abdominal pain is improving. Objective Exam Vital Signs Date Time Temp Pulse Resp B/P (MAP) Pulse Ox O2 Delivery O2 Flow Rate FiO2 07/21/20 06:31 95 Nasal Cannula 1.50 07/21/20 04:26 36.4 99 20 154/96 (115) 93 Nasal Cannula 1.00 07/21/20 01:56 95 Nasal Cannula 1.50 07/21/20 00:01 36.4 93 18 153/95 (114) 96 Nasal Cannula 1.00 07/20/20 20:37 Nasal Cannula 2.00 07/20/20 20:00 36.4 107 18 159/91 (113) 96 Nasal Cannula 1.00 07/20/20 18:35 93 Nasal Cannula 5.00 07/20/20 16:00 36.7 81 20 132/70 (90) 95 Nasal Cannula 1.00 07/20/20 14:21 92 Nasal Cannula 1.50 07/20/20 12:00 36.1 95 18 115/72 (86) 91 Nasal Cannula 1.00 07/20/20 10:33 93 Nasal Cannula 1.50 07/20/20 09:10 Nasal Cannula 2.00 07/20/20 08:00 36.5 97 18 129/75 (93) 95 Nasal Cannula 1.00 I & O 07/21/20 07:00 Intake Total 1350 ml Output Total 1345 ml Balance 5 ml Capillary Refill : Less Than 3 Seconds General Appearance: No Apparent Distress, WD/WN, Chronically ill HEENT: Other (poor dentition) Neck: Normal Inspection Respiratory: Chest Non Tender, No Accessory Muscle Use, No Respiratory Distress , Decreased Breath Sounds, Other (coarse breath sounds BL) Cardiovascular: No Murmur, Normal Peripheral Pulses, Extra Beats, Tachycardia (regular rate) Peripheral Pulses: 2+ Radial Pulses (R), 2+ Radial Pulses (L) Gastrointestinal: soft, abnormal bowel sounds (faint but present at normal intervals all quadrants ), distended; No guarding, No rebound; tenderness (mild abdominal tenderness to the right of his midline incision above the umbilicus), other (SILKE with <2mL serous fluid. Congealed pinkish clot also present in SILKE drain. ) Extremity: Non Tender, No Calf Tenderness, Pedal Edema (trace BL) Neurologic/Psychiatric: Alert, Oriented x3 Skin: Normal Color, Warm/Dry Lymphatic: No Adenopathy (neck, groin) Results Lab Laboratory Tests 07/21/20 05:27: White Blood Count 12.2H, Red Blood Count 4.68, Hemoglobin 14.3, Hematocrit 43, Mean Corpuscular Volume 92, Mean Corpuscular Hemoglobin 31, Mean Corpuscular Hemoglobin Concent 33, Red Cell Distribution Width 16.7H, Platelet Count 237, Mean Platelet Volume 9.4, Immature Granulocyte % (Auto) 1, Neutrophils (%) (Auto) 87H, Lymphocytes (%) (Auto) 6L, Monocytes (%) (Auto) 5, Eosinophils (%) (Auto) 0, Basophils (%) (Auto) 0, Neutrophils # (Auto) 10.6H, Lymphocytes # (Auto) 0.8L, Monocytes # (Auto) 0.6, Eosinophils # (Auto) 0.0, Basophils # (Auto) 0.0, Immature Granulocyte # (Auto) 0.2H, Neutrophils % (Manual) 89, Lymphocytes % (Manual) 4, Monocytes % (Manual) 7, Blood Morphology Comment NORMAL, Sodium Level 132L, Potassium Level 3.7, Chloride Level 96L, Carbon Dioxide Level 23, Anion Gap 13, Blood Urea Nitrogen 13, Creatinine 0.62, Estimat Glomerular Filtration Rate > 60, BUN/Creatinine Ratio 21, Glucose Level 67L, Calcium Level 8.9, Corrected Calcium 9.6, Total Bilirubin 0.8, Aspartate Amino Transf (AST/SGOT) 19, Alanine Aminotransferase (ALT/SGPT) 24, Alkaline Phosphatase 65, Total Protein 6.4, Albumin 3.1L Microbiology 07/18/20 Blood Culture - Preliminary, Resulted Staph, Coag Neg (DEWAXER) See Comments Assessment/Plan Assessment/Plan Assessment/Plan Gastric Perforation -s/p ex lap with oversew of Gastric perforation and modified Burton Patch, NG tube in place. NPO. IV fluids, IV ABX, pain control, anti- emetics as needed. SILKE drain output is orangish-pink with some clots, continue to monitor volume and amount watch for signs/symptoms of fever. Lung CA with mets to brain - chronic cough, sputum production, coarse breath sounds. CXR with right sided infiltrate. Patient is on Zosyn. Seizure-like episode last night, now started on Keppra per Dr. Torrez's orders Bacteremia - 3 of 3 bottles positive has been sent out for culture and sensitivity, will adjust ABX when we have more details ELIZ DAVIS DO 07/21/20 1623: Subjective Time Seen by a Provider: 13:08 Subjective/Events-last exam Pt seen and examined, states he is doing better this afternoon. Main complaint is he wants to get NGT out. Review of Systems General: Fatigue Pulmonary: No Dyspnea, No Cough Cardiovascular: No: Chest Pain, Palpitations Gastrointestinal: Abdominal Pain; No: Nausea, Vomiting Objective Exam General Appearance: Chronically ill HEENT: Other (poor dentition) Respiratory: Chest Non Tender, No Accessory Muscle Use, No Respiratory Distress, Decreased Breath Sounds Cardiovascular: Extra Beats, Tachycardia (regular rate) Gastrointestinal: soft, abnormal bowel sounds (faint but present at normal intervals all quadrants ), distended; No guarding, No rebound; tenderness (mild abdominal tenderness to the right of his midline incision above the umbilicus), other (SILKE with <2mL serous fluid. Congealed pinkish clot also present in SILKE drain. ) Assessment/Plan Assessment/Plan Assessment/Plan Gastric Perforation -s/p ex lap with oversew of Gastric perforation and modified Burton Patch, NG tube in place. NPO. IV fluids, IV ABX, pain control, anti- emetics as needed. SILKE drain output is orangish-pink with some clots, continue to monitor volume and amount, watch for signs/symptoms of fever. may try UGI to check repair tomorrow. Lung CA with mets to brain - chronic cough, sputum production, coarse breath sounds. CXR with right sided infiltrate. Patient is on Zosyn. Seizure-like episode last night, now started on Keppra per Dr. Torrez's orders Bacteremia - 3 of 3 bottles positive has been sent out for culture and sensitivity, will adjust ABX when we have more details Supervisory-Addendum Brief Verification & Attestation Participated in pt care: history, MDM, physical Personally performed: exam, history, MDM Care discussed with: Medical Student Procedures: n/a Verification and Attestation of Medical Student E/M Service A medical student performed and documented this service. I then reviewed and verified all information documented by the medical student and made modifications to such information, when appropriate. I personally performed a physical exam, medical decision making and then discussed any differences between the notes and made revisions as necessary to create one note. Eliz Davis , 07/21/20 , 16:23 ENMA HULL MED STUDENT Jul 21, 2020 07:46 ELIZ DAVIS DO Jul 21, 2020 16:23
[2020-07-21] MEDS: PANTOPRAZOLE 40 MG (PROTONIX) VIAL IVP SCH ×2 (09:01→19:27)
--- NOTE | 2020-07-21 10:42 | Physical Therapy Daily Note ---
PT Daily Note-Current Subjective Patient declined ambulation on this date due to NG tube. Agrees to exercise and up in recliner. Mental Status Patient Orientation: Normal For Age Attachments: NG Tube, Oxygen, IV Transfers SCALE: Activities may be completed with or without assistive devices. 6-Ucdqbgdoig-zoufqbp completes the activity by him/herself with no assistance from a helper. 5-Set-up or Clean-up Assistance-helper sets up or cleans up; patient completes activity. [place] assists only prior to or following the activity. 4-Supervision or Touching Assistance-helper provides verbal cues and/or touching/steadying and/or contact guard assistance as patient completes activity. Assistance may be provided throughout the activity or intermittently. 3-Partial/Moderate Assistance-helper does LESS THAN HALF the effort. [place] lifts, holds or supports trunk or limbs, but provides less than half the effort. 2-Substantial/Maximal Assistance-helper does MORE THAN HALF the effort. [place] lifts or holds trunk or limbs and provides more than half the effort. 8-Lvhxiihuy-wapsdm does ALL the effort. Patient does none of the effort to complete the activity. Or, the assistance of 2 or more helpers is required for the patient to complete the activity. If activity was not attempted, code reason: 7-Patient Refused. 9-Not Applicable-not attempted and the patient did not perform the activity be fore the current illness, exacerbation or injury. 10-Not Attempted due to Environmental Limitations-(lack of equipment, weather restraints, etc.). 88-Not Attempted due to Medical Conditions or Safety Concerns. Lying to Sitting/Side of Bed(Q: 4 Sit to Stand (QC): 3 Chair/Bjz-ei-Tlenk Xfer(QC): 3 Exercises Supine Ex: Ankle pumps, Quad Set, Heel Slides Supine Reps: 12 Seated Therapy Exercises: Ankle pumps, Long arc quads, Hip flexion Seated Reps: 12 Assessment Patient is up in recliner with needs met. Increase activity as tolerated by patient. PT Partner Alliance Manager Goals Chcf Goals PT Partner Alliance Manager Goals Time Frame: Jul 27, 2020 Roll Left & Right (QC): 6 Sit to Lying (QC): 6 Lying-Sitting on Side/Bed(QC): 6 Sit to Stand (QC): 6 Chair/Kxv-hc-Ohvnv Xfer(QC): 6 Toilet Transfer (QC): 6 Car Transfer (QC): 6 Walk 10 feet (QC): 6 Walk 50ft with 2 Turns (QC): 6 Walk 150 ft (QC): 6 PT Plan Treatment/Plan Treatment Plan: Continue Plan of Care Treatment Plan: Bed Mobility, Education, Functional Activity Oli, Functional Strength, Gait, Safety, Therapeutic Exercise, Transfers Treatment Duration: Jul 27, 2020 Frequency: 6 times per week Estimated Hrs Per Day: .25 hour per day Patient and/or Family Agrees t: Yes Time/GCodes Time In: 1006 Time Out: 1017 Total Billed Treatment Time: 11 Total Billed Treatment 1 visit EX 11 min DRU GOLDEN PT Jul 21, 2020 10:42
[2020-07-21] MEDS: ENOXAPARIN 40 MG/0.4 ML (LOVENOX) SYR SC SCH (11:31)
--- NOTE | 2020-07-21 12:19 | Progress Note - Hospitalist ---
YLUYASHLEIGH MED STUDENT 07/21/20 1219: Subjective HPI/CC On Admission Date Seen by Provider: Jul 21, 2020 Time Seen by Provider: 09:30 CC: Perforated gastric ulcer HPI: This is a 65yoWM clinic pt of Dr. Rodrigez and Dr. [facility] who presented to the ER with abdominal pain found to have a gastric ulcer perforation who was taken to surgery urgently by Dr. Sow patch placed and currently he is stable with an NG tube. He was recently diagnosed with brain cancer in May, had radiation treatment and remains on Decadron. He did want to restart his Decadron but I did probation counselor him on the fact that steroids has a lot to do with gastric ulcer formation and he understands that and he will hold off. He does currently smoke and he does have coarse breath sounds and I will go ahead and start nebulizer treatments and be high alert for pneumonia. Subjective/Events-last exam Pts SOB and dyspnea continues to improve today. Pt states pain at surgical sight improve too. WBC count down to 12.2 from 13.2. Pt had a seizure last night at 22:00 - kejessiera started, none since. Pt unconcerned about seizures and states in happened frequently before starting decadron for brain edema. Review of Systems General: No Chills, No Night Sweats Pulmonary: No Dyspnea (improved ); Cough (improved. ) Cardiovascular: No: Chest Pain, Palpitations Gastrointestinal: Abdominal Pain; No: Nausea, Vomiting Objective Exam Vital Signs Vital Signs Date Time Temp Pulse Resp B/P (MAP) Pulse Ox O2 Delivery O2 Flow Rate FiO2 07/21/20 10:27 88 Nasal Cannula 1.50 07/21/20 07:50 36.5 91 20 133/79 (97) Capillary Refill : Less Than 3 Seconds General Appearance: No Apparent Distress, Chronically ill Neck: Full Range of Motion, Normal Inspection Respiratory: Lungs Clear, Normal Breath Sounds, No Accessory Muscle Use, No Respiratory Distress Cardiovascular: No Murmur, Normal Peripheral Pulses, Extra Beats (PVCs) Gastrointestinal: Soft, Tenderness Rectal: Deferred Extremity: Normal Capillary Refill, Normal Inspection, No Calf Tenderness Neurologic/Psychiatric: Alert, Oriented x3, Normal Mood/Affect Skin: Normal Color, Warm/Dry Results/Procedures Lab Laboratory Tests 07/21/20 05:27 Patient resulted labs reviewed. Assessment/Plan Assessment and Plan Assess & Plan/Chief Complaint s/p radha patch for perforated gastric ulcer performed 07/18/20 biopsy results at perf site show: fragments of smooth muscle and fibrous tissue with acute and chronic inflammation. NG tube. SILKE drain. morphine for pain. IV zosyn. IS PT/OT and encouraged ambulation Seizures two contributing etiologies - known hx of ETOH abuse, likely experiencing withdrawl. Plus possible increased brain edema 2/2 decadron being held. known hx. patient contributes to brain edema from lung c don. Previously controlled on decadron - continue to hold due to gastric ulcer perf. IV Keppra PNA 07/20 CXR shows new infiltrates in R upper lobe WBC down to 12.2 from 13.2 yesterday. IV zosyn Lung C with brain don COPD alcoholism 1-2 PPD current smoker HTN HLP duodeneb for COPD. pt currently NPO. DVT prophylaxis lovenox. TITA GUAMAN DO 07/22/20 0532: Subjective Subjective/Events-last exam Pt had a seizure last night Much improved today Dyspnea is improved 95% O2 sat on 1 liter WC is 12.2 Alcohol withdraw seizures could be the source also Review of Systems General: Fatigue, Malaise Neurological: Weakness Objective Exam General Appearance: No Apparent Distress, WD/WN, Chronically ill Respiratory: Crackles, Decreased Breath Sounds Cardiovascular: Regular Rate, Rhythm Neurologic/Psychiatric: Alert, Oriented x3 Assessment/Plan Assessment and Plan Assess & Plan/Chief Complaint Seizure meds Monitor closely CXR reviewed Nebs O2 Supervisory-Addendum Brief Verification & Attestation Participated in pt care: history, MDM, physical Personally performed: exam, history, MDM, supervision of care Care discussed with: Medical Student Procedures: n/a Results interpretation: Verified all documentation Verification and Attestation of Medical Student E/M Service A medical student performed and documented this service in my presence. I reviewed and verified all information documented by the medical student and made modifications to such information, when appropriate. I personally performed the physical exam and medical decision making. Tita Guaman, Jul 22, 2020,05:31 ASHLEIGH EMERY MED STUDENT Jul 21, 2020 12:19 TITA GUAMAN DO Jul 22, 2020 05:32
[2020-07-21] MEDS: FLUCONAZOLE 200 MG/100 ML 100 ML IV SCH (15:11)
[2020-07-22] MEDS: LACTATED RINGERS 1,000 ML IV SCH ×4 (01:06→21:20)
[2020-07-22] MEDS: RT-ALBUTEROL/IPRATROPIUM 3 ML (DUONEB) VIAL INH SCH ×6 (02:26→23:20)
[2020-07-22 04:14] VITALS: BP 131/83
[2020-07-22] MEDS: PIPERACILLIN/TAZOBACTAM (BULK) 4.5 GM in NS (IVPB) 100 ML IV SCH ×3 (04:14→20:37)
[2020-07-22 05:34] LABS: BASOPHILS % (AUTO) 0 % (0-10); EOSINOPHILS # (AUTO) 0.1 10^3/uL (0.0-0.3); EOSINOPHILS % (AUTO) 1 % (0-10); HEMATOCRIT 43 % (40-54); LYMPHOCYTES % (AUTO) 10 % (12-44); MEAN CORPUSCULAR HEMOGLOBIN 30 pg (25-34); MEAN CORPUSCULAR HGB CONC 33 g/dL (32-36); MEAN CORPUSCULAR VOLUME 91 fL (80-99); MEAN PLATELET VOLUME 9.3 fL (9.0-12.2); MONOCYTES # (AUTO) 0.7 10^3/uL (0.0-1.0); MONOCYTES % (AUTO) 7 % (0-12); NEUTROPHILS # (AUTO) 8.9 10^3/uL (1.8-7.8); NEUTROPHILS % (AUTO) 82 % (42-75); PLATELET COUNT 263 10^3/uL (130-400); WHITE BLOOD COUNT 10.8 10^3/uL (4.3-11.0)
[2020-07-22 05:52] LABS: ALBUMIN 2.9 GM/DL (3.2-4.5); CHLORIDE 97 MMOL/L (98-107); POTASSIUM 3.3 MMOL/L (3.6-5.0); SODIUM 133 MMOL/L (135-145)
[2020-07-22 05:54] LABS: CALCIUM 8.7 MG/DL (8.5-10.1)
[2020-07-22 05:55] LABS: TOTAL PROTEIN 6.2 GM/DL (6.4-8.2)
[2020-07-22 05:56] LABS: CARBON DIOXIDE 20 MMOL/L (21-32)
[2020-07-22 05:57] LABS: BILIRUBIN,TOTAL 0.6 MG/DL (0.1-1.0)
[2020-07-22 05:58] LABS: ALKALINE PHOSPHATASE 61 U/L (40-136); CREATININE SERUM 0.59 MG/DL (0.60-1.30); GFR ESTIMATED > 60
[2020-07-22 05:59] LABS: BUN/CREATININE RATIO 19
[2020-07-22 06:01] LABS: ALANINE AMINOTRANSFERASE 22 U/L (0-55)
[2020-07-22] MEDS ORDERED: DEXTROSE 50% 50 ML (IMS) SYR ONE (06:26)
[2020-07-22 06:28] LABS: GLUCOSE 59 MG/DL (70-105)
[2020-07-22] MEDS ORDERED: DEXTROSE 50% 50 ML (IMS) SYR IV ONE (06:30)
[2020-07-22 07:25] VITALS: BP 106/66
[2020-07-22] MEDS ORDERED: DIATRIZOATE MEGLUM/SODIUM 37% 120 ML (GASTROGRAFIN) NG ONE (08:30)
--- NOTE | 2020-07-22 09:01 | Progress Note - Surgery ---
ENMA HULL MED STUDENT 07/22/20 0901: Subjective Date Seen by a Provider: Jul 22, 2020 Time Seen by a Provider: 08:10 Subjective/Events-last exam Don states his abdominal pain has decreased. Reports he has passed gas but not stool. Complains of discomfort with NG tube, is eager to get it removed. States he does not feel more short of breath. Denies fever or chills. Objective Exam Vital Signs Date Time Temp Pulse Resp B/P (MAP) Pulse Ox O2 Delivery O2 Flow Rate FiO2 07/22/20 07:25 36.8 109 20 106/66 (79) 96 Nasal Cannula 1.00 07/22/20 06:28 96 Nasal Cannula 2.00 07/22/20 04:14 36.2 90 20 131/83 (99) 96 Nasal Cannula 1.00 07/22/20 02:26 98 Nasal Cannula 1.50 07/21/20 23:37 36.8 96 20 145/92 (109) 94 Nasal Cannula 1.00 07/21/20 20:50 Nasal Cannula 1.50 07/21/20 19:36 36.9 95 20 145/92 (109) 98 Nasal Cannula 1.00 07/21/20 18:41 98 Nasal Cannula 1.50 07/21/20 16:06 36.6 73 20 138/88 (105) 96 Nasal Cannula 1.00 07/21/20 14:28 94 Nasal Cannula 1.50 07/21/20 11:30 37.1 92 20 134/76 (95) 93 Nasal Cannula 1.00 07/21/20 10:27 88 Nasal Cannula 1.50 I & O 07/22/20 07:00 Intake Total 230 ml Output Total 2015 ml Balance -1785 ml Capillary Refill : Less Than 3 Seconds General Appearance: No Apparent Distress, Chronically ill HEENT: Other (poor dentition) Neck: Full Range of Motion, Normal Inspection Respiratory: Chest Non Tender, No Accessory Muscle Use, No Respiratory Distress; No Crackles; Decreased Breath Sounds (lower lobes); No Stridor, No Wheezing; Other (coarse breath sounds. Coughs after deep inspiration. ) Cardiovascular: Regular Rate, Rhythm Peripheral Pulses: 2+ Radial Pulses (R), 2+ Radial Pulses (L) Gastrointestinal: normal bowel sounds, soft, distended (minimally); No guarding, No rebound; tenderness (minimal abdominal tenderness to the right of his midline incision above the umbilicus. Nontender otherwise), other (SILKE with 5mL serous fluid. Congealed pinkish clot also present in SILKE drain and in tubing. Incision clean, dry, intact without surrounding erythema.) Extremity: Normal Capillary Refill, Normal Inspection, No Calf Tenderness, Pedal Edema (trace bilaterally) Neurologic/Psychiatric: Alert, Oriented x3 Skin: Normal Color, Warm/Dry Lymphatic: No Adenopathy (neck, groin) Results Lab Laboratory Tests 07/22/20 05:04: White Blood Count 10.8, Red Blood Count 4.68, Hemoglobin 14.0, Hematocrit 43, Mean Corpuscular Volume 91, Mean Corpuscular Hemoglobin 30, Mean Corpuscular Hemoglobin Concent 33, Red Cell Distribution Width 16.4H, Platelet Count 263, Mean Platelet Volume 9.3, Immature Granulocyte % (Auto) 1, Neutrophils (%) (Auto) 82H, Lymphocytes (%) (Auto) 10L, Monocytes (%) (Auto) 7, Eosinophils (%) (Auto) 1, Basophils (%) (Auto) 0, Neutrophils # (Auto) 8.9H, Lymphocytes # (Auto) 1.0, Monocytes # (Auto) 0.7, Eosinophils # (Auto) 0.1, Basophils # (Auto) 0.0, Immature Granulocyte # (Auto) 0.1, Sodium Level 133L, Potassium Level 3.3L, Chloride Level 97L, Carbon Dioxide Level 20L, Anion Gap 16H, Blood Urea Nitrogen 11, Creatinine 0.59L, Estimat Glomerular Filtration Rate > 60, BUN/Creatinine Ratio 19, Glucose Level 59*L, Calcium Level 8.7, Corrected Calcium 9.6, Total Bilirubin 0.6, Aspartate Amino Transf (AST/SGOT) 19, Alanine Aminotransferase (ALT/SGPT) 22, Alkaline Phosphatase 61, Total Protein 6.2L, Albumin 2.9L 07/22/20 06:53: Glucometer 168H Microbiology 07/18/20 Blood Culture - Preliminary, Resulted Staph, Coag Neg ([facility]) Testing In Progress See Comments Assessment/Plan Assessment/Plan Assessment/Plan Gastric Perforation -s/p ex lap with oversew of Gastric perforation and modified Burton Patch, NG tube in place. IV fluids, IV ABX, pain control, anti-emetics as needed. Will do UGI study today to evaluate removal of NG tube. SILKE drain output is orangish-pink with some clots, continue to monitor volume and amount, watch for signs/symptoms of fever. Output has increased yesterday and today. Lung CA with mets to brain - chronic cough, sputum production, coarse breath sounds. Breathing seems slightly improved today. CXR several days ago showed right sided infiltrate. Patient is on Zosyn. Seizure-like episode last night, now started on Keppra per Dr. Torrez's orders Bacteremia - 3 of 3 bottles positive has been sent out for culture and sensitivity, will adjust ABX when we have more details ELIZ SOW DO 07/22/20 1124: Subjective Time Seen by a Provider: 11:04 Subjective/Events-last exam Pt seen and examined, states almost no abdominal pain. He is begging to have NGT removed. Review of Systems General: No Chills, No Night Sweats Pulmonary: No Dyspnea; Cough, Other (complains of too many secretions) Cardiovascular: No: Chest Pain, Palpitations Gastrointestinal: Abdominal Pain; No: Nausea, Vomiting Objective Exam General Appearance: No Apparent Distress, Chronically ill Respiratory: No Accessory Muscle Use, No Respiratory Distress; No Crackles; Decreased Breath Sounds (lower lobes); No Stridor, No Wheezing; Other (coarse breath sounds. Coughs after deep inspiration. ) Cardiovascular: Regular Rate, Rhythm Gastrointestinal: soft, distended (minimally); No guarding, No rebound; tenderness (minimal abdominal tenderness to the right of his midline incision above the umbilicus. Nontender otherwise), other (SILKE with 5mL serous fluid. Congealed pinkish clot also present in SILKE drain and in tubing. Incision clean, dry, intact without surrounding erythema.) Assessment/Plan Assessment/Plan Assessment/Plan Gastric Perforation -s/p ex lap with oversew of Gastric perforation and modified Burton Patch, IV fluids, IV ABX, pain control, anti-emetics as needed. UGI study done today showed no leak, will clamp NGT and start clears, unclamp at 18:00 and if less than 200ml will remove NG tube. Lung CA with mets to brain - chronic cough, sputum production, coarse breath sounds. Breathing seems slightly improved today. CXR several days ago showed right sided infiltrate. Patient is on Zosyn. Seizure-like episode last night, now started on Keppra per Dr. Torrez's orders Bacteremia - will repeat and if positive start Vanco Supervisory-Addendum Brief Verification & Attestation Participated in pt care: history, MDM, physical Personally performed: exam, history, MDM Care discussed with: Medical Student Procedures: n/a Verification and Attestation of Medical Student E/M Service A medical student performed and documented this service. I then reviewed and verified all information documented by the medical student and made modifications to such information, when appropriate. I personally performed a physical exam, medical decision making and then discussed any differences betwee n the notes and made revisions as necessary to create one note. Eliz Sow , 07/22/20 , 11:25 ENMA HULL MED STUDENT Jul 22, 2020 09:01 ELIZ SOW DO Jul 22, 2020 11:24
--- NOTE | 2020-07-22 09:40 | Diagnostic Imaging Report ---
INDICATION: Status post gastric perforation and status post Burton patch repair. The study is performed evaluate for leak. Patient brought to the fluoroscopy suite placed on table in the supine position. Approximately 180 mL mixture of Gastroview contrast and water was injected through patient's indwelling nasogastric tube. Fluoroscopic observation of the contrast passed into the stomach into the proximal small bowel was performed. Total of 65 seconds of fluoroscopic time was utilized. The preliminary radiograph of the abdomen demonstrates midline skin abby. There is a surgical drain in the upper abdomen. There is also an NG tube. Postinjection images demonstrate contrast within the stomach with dumping of contrast into the proximal small bowel. No extravasation of contrast to suggest leakage is identified. IMPRESSION: Limited upper GI study. No extravasation of contrast from the stomach or leakage is identified. Dictated by: Dictated on workstation # [id number]
[2020-07-22] MEDS: PANTOPRAZOLE 40 MG (PROTONIX) VIAL IVP SCH ×2 (10:03→20:38)
[2020-07-22] MEDS: ENOXAPARIN 40 MG/0.4 ML (LOVENOX) SYR SC SCH (10:03)
--- NOTE | 2020-07-22 11:34 | Physical Therapy Progress Note ---
Therapy Progress Note Patient declined therapy all day due to extreme fatigue. He states, "I just want to sleep. They were suppose to call you and tell you." RN confirms. Patient agrees to attempt in a.m. 1 ref ([id number]) DRU GOLDEN PT Jul 22, 2020 11:34
--- NOTE | 2020-07-22 12:11 | Progress Note - Hospitalist ---
ASHLEIGH EMERY MED STUDENT 07/22/20 1211: Subjective HPI/CC On Admission Date Seen by Provider: Jul 22, 2020 Time Seen by Provider: 09:55 CC: Perforated gastric ulcer HPI: This is a 65yoWM clinic pt of Dr. Rodrigez and Dr. Rich Oncology who presented to the ER with abdominal pain found to have a gastric ulcer perforation who was taken to surgery urgently by Dr. Sow patch placed and currently he is stable with an NG tube. He was recently diagnosed with brain cancer in May, had radiation treatment and remains on Decadron. He did want to restart his Decadron but I did child and family counselor him on the fact that steroids has a lot to do with gastric ulcer formation and he understands that and he will hold off. He does currently smoke and he does have coarse breath sounds and I will go ahead and start nebulizer treatments and be high alert for pneumonia. Subjective/Events-last exam Pt resp status continues to improve - 96O2 sat on 1LPM this morning. Pt endores no coughing, SOB, or seizures. Pt states he passed gas for first time this morning. Pt send for upper GI this morning - no leak at gastric ulcer perf site, pts NT tube clamped and clear liquid diet started. Review of Systems General: No Chills Pulmonary: No Dyspnea, No Cough, No Pleuritic Chest Pain Cardiovascular: No: Chest Pain, Palpitations, Edema Gastrointestinal: No: Nausea, Vomiting Objective Exam Vital Signs Vital Signs Date Time Temp Pulse Resp B/P (MAP) Pulse Ox O2 Delivery O2 Flow Rate FiO2 07/22/20 08:00 Nasal Cannula 1.00 07/22/20 07:25 36.8 109 20 106/66 (79) 96 Capillary Refill : Less Than 3 Seconds General Appearance: No Apparent Distress, Chronically ill Neck: Normal Inspection Respiratory: Lungs Clear, No Accessory Muscle Use, No Respiratory Distress Cardiovascular: Regular Rate, Rhythm, Normal Peripheral Pulses Gastrointestinal: Soft, Tenderness Rectal: Deferred Extremity: Normal Capillary Refill, Calf Tenderness (light R calf tenderness to palpation, to swelling or erythema. ) Neurologic/Psychiatric: Alert, Oriented x3, Normal Mood/Affect Skin: Normal Color, Warm/Dry Results/Procedures Lab Laboratory Tests 07/22/20 05:04 Patient resulted labs reviewed. Assessment/Plan Assessment and Plan Assess & Plan/Chief Complaint s/p radha patch for perforated gastric ulcer performed 07/18/20 surgery following. biopsy results at perf site show: fragments of smooth muscle and fibrous tissue with acute and chronic inflammation. upper GI with oral contrast - neg for leak. NG tube clamped. diet advanced IS PT/OT and encouraged ambulation IV protonix Hypokalemia 3.3 from 3.7 yesterday start IV KCl Seizures none yesterday. two contributing etiologies - known hx of ETOH abuse, likely experiencing withdrawl. Plus possible increased brain edema 2/2 decadron being held. known hx. patient contributes to brain edema from lung c don. Previously controlled on decadron - continue to hold due to gastric ulcer perf. IV Keppra PNA 07/20 CXR shows new infiltrates in R upper lobe WBC down to 10.8 from 12.2 yesterday IV zosyn Lung C with brain don COPD alcoholism 1-2 PPD current smoker HTN HLP duodeneb for COPD. DVT prophylaxis lovenox. TITA GUAMAN DO 07/23/20 0658: Subjective Subjective/Events-last exam Improved status Labs reviewed O2 maintained Nebs helping CLD Review of Systems General: Fatigue Pulmonary: Dyspnea Objective Exam General Appearance: No Apparent Distress, WD/WN, Anxious, Chronically ill Respiratory: Lungs Clear, Crackles Cardiovascular: Regular Rate, Rhythm Neurologic/Psychiatric: Alert, Oriented x3 Assessment/Plan Assessment and Plan Assess & Plan/Chief Complaint Supportive care IV abx Nebs O2 Supervisory-Addendum Brief Verification & Attestation Participated in pt care: history, MDM, physical Personally performed: exam, history, MDM, supervision of care Care discussed with: Medical Student Procedures: n/a Results interpretation: Verified all documentation Verification and Attestation of Medical Student E/M Service A medical student performed and documented this service in my presence. I reviewed and verified all information documented by the medical student and made modifications to such information, when appropriate. I personally performed the physical exam and medical decision making. Tita Guaman, Jul 23, 2020,06:57 ASHLEIGH EMERY MED STUDENT Jul 22, 2020 12:11 TITA GUAMAN DO Jul 23, 2020 06:58
[2020-07-22] MEDS ORDERED: POTASSIUM CL 10MEQ/50ML IVPB 50 ML IV SCH (12:15)
[2020-07-22 12:20] VITALS: BP 124/69
[2020-07-22] MEDS ORDERED: VANCOMYCIN INJECTION 0.1 MG in NS (IVPB) 250 ML IV SCH (12:30)
[2020-07-22] MEDS: VANCOMYCIN 1250 MG/NS 250 ML IVPB IV SCH ×4 (13:37→23:22)
[2020-07-22] MEDS: POTASSIUM CL 10MEQ/50ML IVPB 50 ML IV SCH ×4 (13:59→18:29)
[2020-07-22 16:09] VITALS: BP 135/73
[2020-07-22 19:21] VITALS: BP 132/73
[2020-07-22] MEDS: FLUCONAZOLE 200 MG/100 ML 100 ML IV SCH (20:37)
[2020-07-22] MEDS: morphine INJ 4 MG/ML 1 ML (VIAL/SYRINGE) IVP PRN (20:38)
[2020-07-23 00:05] VITALS: BP 150/91
[2020-07-23] MEDS: RT-ALBUTEROL/IPRATROPIUM 3 ML (DUONEB) VIAL INH SCH ×6 (01:59→21:20)
[2020-07-23] MEDS: LACTATED RINGERS 1,000 ML IV SCH ×3 (04:03→17:06)
[2020-07-23] MEDS: PIPERACILLIN/TAZOBACTAM (BULK) 4.5 GM in NS (IVPB) 100 ML IV SCH (04:03)
[2020-07-23 05:13] LABS: BASOPHILS % (AUTO) 0 % (0-10); EOSINOPHILS # (AUTO) 0.1 10^3/uL (0.0-0.3); EOSINOPHILS % (AUTO) 1 % (0-10); HEMATOCRIT 43 % (40-54); HEMOGLOBIN 13.9 g/dL (13.3-17.7); LYMPHOCYTES # (AUTO) 1.1 10^3/uL (1.0-4.0); LYMPHOCYTES % (AUTO) 9 % (12-44); MEAN CORPUSCULAR HEMOGLOBIN 30 pg (25-34); MEAN CORPUSCULAR HGB CONC 32 g/dL (32-36); MEAN CORPUSCULAR VOLUME 93 fL (80-99); MEAN PLATELET VOLUME 9.6 fL (9.0-12.2); MONOCYTES # (AUTO) 0.9 10^3/uL (0.0-1.0); MONOCYTES % (AUTO) 8 % (0-12); NEUTROPHILS # (AUTO) 10.2 10^3/uL (1.8-7.8); NEUTROPHILS % (AUTO) 82 % (42-75); PLATELET COUNT 269 10^3/uL (130-400); WHITE BLOOD COUNT 12.5 10^3/uL (4.3-11.0)
[2020-07-23 05:36] LABS: ALANINE AMINOTRANSFERASE 20 U/L (0-55); ALBUMIN 2.9 GM/DL (3.2-4.5); ALKALINE PHOSPHATASE 58 U/L (40-136); BILIRUBIN,TOTAL 0.6 MG/DL (0.1-1.0); BUN/CREATININE RATIO 17; CALCIUM 8.6 MG/DL (8.5-10.1); CARBON DIOXIDE 23 MMOL/L (21-32); CHLORIDE 101 MMOL/L (98-107); CREATININE SERUM 0.59 MG/DL (0.60-1.30); GFR ESTIMATED > 60; GLUCOSE 79 MG/DL (70-105); POTASSIUM 3.9 MMOL/L (3.6-5.0); SODIUM 137 MMOL/L (135-145); TOTAL PROTEIN 6.1 GM/DL (6.4-8.2)
[2020-07-23 07:48] VITALS: BP 130/79
[2020-07-23] MEDS: PANTOPRAZOLE 40 MG (PROTONIX) VIAL IVP SCH ×2 (08:29→21:05)
--- NOTE | 2020-07-23 09:17 | Progress Note - Surgery ---
ENMA HULL MED STUDENT 07/23/20 0917: Subjective Date Seen by a Provider: Jul 23, 2020 Time Seen by a Provider: 09:00 Subjective/Events-last exam Dewayne Jara states he feels much better since removal of NG tube. Had 2 bowel movements today, mixture of solids and liquids. States he does not feel abdominal bloating, has mild abdominal pain at rest. Reports SOB is unchanged compared to yesterday, denies increased cough. States he has same amount of secretions as is baseline with his cancer, except just following brochodilator therapy. Objective Exam Vital Signs Date Time Temp Pulse Resp B/P (MAP) Pulse Ox O2 Delivery O2 Flow Rate FiO2 07/23/20 07:48 36.3 94 18 130/79 (96) 94 Nasal Cannula 1.00 07/23/20 07:05 97 Nasal Cannula 1.00 07/23/20 00:05 36.6 88 20 150/91 (110) 95 Nasal Cannula 1.00 07/22/20 21:00 Nasal Cannula 1.50 07/22/20 19:21 37.3 78 18 132/73 (92) 92 Nasal Cannula 1.00 07/22/20 18:47 90 Nasal Cannula 2.00 07/22/20 16:09 36.8 95 18 135/73 (93) 96 Nasal Cannula 1.00 07/22/20 12:20 36.8 76 20 124/69 (87) 97 Nasal Cannula 1.00 I & O 07/23/20 07:00 Intake Total 842.5 ml Output Total 1070 ml Balance -227.5 ml Capillary Refill : Less Than 3 Seconds General Appearance: No Apparent Distress, WD/WN, Anxious, Chronically ill HEENT: Other (poor dentition) Neck: Normal Inspection Respiratory: Chest Non Tender, Lungs Clear, No Accessory Muscle Use, No Respiratory Distress; No Crackles; Decreased Breath Sounds (right lower lobe), Other (coarse breath sounds) Cardiovascular: Regular Rate, Rhythm Peripheral Pulses: 2+ Radial Pulses (R), 2+ Radial Pulses (L) Gastrointestinal: soft, distended (minimally); No guarding, No rebound; tenderness (minimal abdominal tenderness to the right of his midline incision above the umbilicus. Nontender otherwise), other (SILKE with 5-10mL serosanguinous fluid. Congealed pinkish clot also present in SILKE drain and in tubing. Midline incision clean, dry, intact without surrounding erythema. Boby in place.) Extremity: Normal Capillary Refill, Pedal Edema (trace bilaterally) Neurologic/Psychiatric: Alert, Oriented x3 Skin: Normal Color, Warm/Dry Lymphatic: No Adenopathy (neck, groin) Results Lab Laboratory Tests 07/23/20 00:15: Glucometer 81 07/23/20 04:40: White Blood Count 12.5H, Red Blood Count 4.64, Hemoglobin 13.9, Hematocrit 43, Mean Corpuscular Volume 93, Mean Corpuscular Hemoglobin 30, Mean Corpuscular Hemoglobin Concent 32, Red Cell Distribution Width 16.4H, Platelet Count 269, Mean Platelet Volume 9.6, Immature Granulocyte % (Auto) 2, Neutrophils (%) (Auto) 82H, Lymphocytes (%) (Auto) 9L, Monocytes (%) (Auto) 8, Eosinophils (%) (Auto) 1, Basophils (%) (Auto) 0, Neutrophils # (Auto) 10.2H, Lymphocytes # (Auto) 1.1, Monocytes # (Auto) 0.9, Eosinophils # (Auto) 0.1, Basophils # (Auto) 0.0, Immature Granulocyte # (Auto) 0.2H, Sodium Level 137, Potassium Level 3.9, Chloride Level 101, Carbon Dioxide Level 23, Anion Gap 13, Blood Urea Nitrogen 10, Creatinine 0.59L, Estimat Glomerular Filtration Rate > 60, BUN/Creatinine Ratio 17, Glucose Level 79, Calcium Level 8.6, Corrected Calcium 9.5, Total Bilirubin 0.6, Aspartate Amino Transf (AST/SGOT) 18, Alanine Aminotransferase (ALT/SGPT) 20, Alkaline Phosphatase 58, Total Protein 6.1L, Albumin 2.9L Microbiology 07/18/20 Blood Culture - Final, Complete Staphylococcus epidermidis See Comments Assessment/Plan Assessment/Plan Assessment/Plan Gastric Perforation -s/p ex lap with oversew of Gastric perforation and modified Burton Patch, IV fluids, IV ABX, pain control, anti-emetics as needed. NG tube removed, on clears. No nausea, passed 2x bm including solids abdomen still minimally distended. Will likely progress to soft foods tomorrow. Lung CA with mets to brain - chronic cough, sputum production, coarse breath sounds. Breathing seems slightly improved today. Previously on 1L NC, currently on room air. CXR several days ago showed right sided infiltrate. Seizure-like episode last night, now started on Keppra per Dr. Torrez's orders Bacteremia - on Vancomycin ELIZ DAVIS DO 07/23/20 1324: Subjective Time Seen by a Provider: 12:57 Subjective/Events-last exam Pt seen and examined, states he feels much better. He is having BM's; liquid and nurse states "all over the place". He is asking about Home health and stated he needs to get home for just a little. Review of Systems General: Fatigue Pulmonary: Dyspnea (with exertion); No Cough Cardiovascular: No: Chest Pain, Palpitations Gastrointestinal: Abdominal Pain (minimal); No: Nausea, Vomiting Objective Exam General Appearance: No Apparent Distress, Anxious, Chronically ill Respiratory: No Accessory Muscle Use, No Respiratory Distress; No Crackles; Decreased Breath Sounds (right lower lobe), Other (coarse breath sounds) Cardiovascular: Regular Rate, Rhythm Gastrointestinal: soft, distended (minimally); No guarding, No rebound; tenderness (minimal abdominal tenderness to the right of his midline incision above the umbilicus. Nontender otherwise), other (SILKE with 5-10mL serosanguinous fluid. Congealed pinkish clot also present in SILKE drain and in tubing. Midline incision clean, dry, intact without surrounding erythema. Boby in place.) Assessment/Plan Assessment/Plan Assessment/Plan Gastric Perforation -s/p ex lap with oversew of Gastric perforation and modified Burton Patch, IV fluids, IV ABX, pain control, anti-emetics as needed. NG tube removed, on clears. No nausea, passed 2x bm including solids, will increase diet slowly Lung CA with mets to brain - chronic cough, sputum production, coarse breath sounds. Breathing seems slightly improved today. Previously on 1L NC, currently on room air. CXR several days ago showed right sided infiltrate. Seizure-like episode last night, now started on Keppra per Dr. Torrez's orders Bacteremia - on Vancomycin Supervisory-Addendum Brief Verification & Attestation Participated in pt care: history, MDM, physical Personally performed: exam, history, MDM Care discussed with: Medical Student Procedures: n/a Verification and Attestation of Medical Student E/M Service A medical student performed and documented this service. I then reviewed and verified all information documented by the medical student and made modifications to such information, when appropriate. I personally performed a physical exam, medical decision making and then discussed any differences between the notes and made revisions as necessary to create one note. Eliz Davis , 07/23/20 , 13:23 ENMA HULL MED STUDENT Jul 23, 2020 09:17 ELIZ DAVIS DO Jul 23, 2020 13:24
[2020-07-23] MEDS: ENOXAPARIN 40 MG/0.4 ML (LOVENOX) SYR SC SCH (10:25)
[2020-07-23] MEDS: VANCOMYCIN 1250 MG/NS 250 ML IVPB IV SCH ×2 (10:26)
--- NOTE | 2020-07-23 11:06 | Physical Therapy Progress Note ---
Therapy Progress Note Pt. in bed, refuses PT today saying his left leg is not working and he cannot walk. Pt. declines all attempts of OOB activity and leg exercises saying "just not today." We plan to return 07/25 for PT treatment. visit only 0300 KEVIN DAVIDSON PT Jul 23, 2020 11:06
[2020-07-23] MEDS ORDERED: RT-ALBUTEROL INHALER HFA (VENTOLIN HFA) 18 GM IH PRN (12:30)
--- NOTE | 2020-07-23 12:58 | Progress Note - Hospitalist ---
Subjective HPI/CC On Admission Date Seen by Provider: Jul 23, 2020 Time Seen by Provider: 11:30 CC: Perforated gastric ulcer HPI: This is a 65yoWM clinic pt of Dr. Rodrigez and Dr. Rich Oncology who presented to the ER with abdominal pain found to have a gastric ulcer perforation who was taken to surgery urgently by Dr. Sow patch placed and currently he is stable with an NG tube. He was recently diagnosed with brain cancer in May, had radiation treatment and remains on Decadron. He did want to restart his Decadron but I did drapery counselor him on the fact that steroids has a lot to do with gastric ulcer formation and he understands that and he will hold off. He does currently smoke and he does have coarse breath sounds and I will go ahead and start nebulizer treatments and be high alert for pneumonia. Subjective/Events-last exam Patient doing well Wants to go home but refuses PT and can't get OOB because he is too weak Unrealistic expectations about going home to take care of horses Labs reviewed Nebs maintained O2 maintained IV abx maintained NGT out CLD maintained BM x 2 Proair requested Review of Systems General: Fatigue, Malaise Neurological: Weakness Focused Exam Lactate Level 07/23/20 21:15: Lactic Acid Level 0.74 Objective Exam Vital Signs Vital Signs Date Time Temp Pulse Resp B/P (MAP) Pulse Ox O2 Delivery O2 Flow Rate FiO2 07/24/20 06:00 67 12 104/71 (82) 91 Nasal Cannula 1.50 07/24/20 03:45 36.1 Capillary Refill : Less Than 3 Seconds General Appearance: No Apparent Distress, WD/WN, Chronically ill Respiratory: Lungs Clear, Normal Breath Sounds Cardiovascular: Regular Rate, Rhythm Neurologic/Psychiatric: Alert, Oriented x3 Results/Procedures Lab Laboratory Tests 07/23/20 21:15 07/24/20 05:50 Patient resulted labs reviewed. Assessment/Plan Assessment and Plan Assess & Plan/Chief Complaint Assessment: s/p gastric ulcer perforation-holding Decadron Brain cancer COPD Smoker PNA Ileus Anemia Seizures from brain tumor Plan: Monitor closely Keppra IV abx Nebs O2 Diagnosis/Problems Diagnosis/Problems (1) Perforated ulcer Status: Acute (2) Very heavy cigarette smoker (40 or more per day) Status: Acute (3) Alcoholism Status: Acute (4) COPD (chronic obstructive pulmonary disease) Status: Acute KIZZY GUAMAN DO Jul 23, 2020 12:58
[2020-07-23 16:00] VITALS: BP 147/86
[2020-07-23] MEDS: ACETAMINOPHEN 500 MG TAB (TYLENOL) PO PRN (16:04)
[2020-07-23] MEDS: morphine INJ 4 MG/ML 1 ML (VIAL/SYRINGE) IVP PRN (18:07)
[2020-07-23] MEDS: FLUCONAZOLE 200 MG/100 ML 100 ML IV SCH (19:59)
[2020-07-23 20:25] VITALS: BP 124/84
[2020-07-23 21:24] LABS: BASOPHILS % (AUTO) 0 % (0-10); EOSINOPHILS # (AUTO) 0.1 10^3/uL (0.0-0.3); EOSINOPHILS % (AUTO) 0 % (0-10); HEMATOCRIT 42 % (40-54); HEMOGLOBIN 13.9 g/dL (13.3-17.7); LYMPHOCYTES # (AUTO) 1.4 10^3/uL (1.0-4.0); LYMPHOCYTES % (AUTO) 12 % (12-44); MEAN CORPUSCULAR HEMOGLOBIN 30 pg (25-34); MEAN CORPUSCULAR HGB CONC 33 g/dL (32-36); MEAN CORPUSCULAR VOLUME 93 fL (80-99); MEAN PLATELET VOLUME 9.1 fL (9.0-12.2); MONOCYTES # (AUTO) 0.9 10^3/uL (0.0-1.0); MONOCYTES % (AUTO) 8 % (0-12); NEUTROPHILS # (AUTO) 9.1 10^3/uL (1.8-7.8); NEUTROPHILS % (AUTO) 77 % (42-75); PLATELET COUNT 269 10^3/uL (130-400); WHITE BLOOD COUNT 11.7 10^3/uL (4.3-11.0)
[2020-07-23 21:35] VITALS: BP 135/89
--- NOTE | 2020-07-23 21:38 | Diagnostic Imaging Report ---
INDICATION: Atrial fibrillation. COMPARISON: 07/20. FINDINGS: Bilateral mixed interstitial and airspace disease is unchanged at the level of the basis but showed at least some improvements peripherally in the right upper lobe and right midlung. No pneumothorax. The OG catheter has been removed. Blunting of the angles, likely small amounts of pleural fluid are similar if not slightly decreased. IMPRESSION: Infiltrates present, likely mixed pneumonia and basilar atelectasis present. The right upper lobe disease showed some improvement. There is likely a reduction in pleural fluid. Dictated by: Dictated on workstation # [id number]
[2020-07-23 21:50] LABS: ALANINE AMINOTRANSFERASE 19 U/L (0-55); ALBUMIN 2.7 GM/DL (3.2-4.5); ALKALINE PHOSPHATASE 54 U/L (40-136); BILIRUBIN,TOTAL 0.5 MG/DL (0.1-1.0); BUN/CREATININE RATIO 12; CALCIUM 8.2 MG/DL (8.5-10.1); CARBON DIOXIDE 23 MMOL/L (21-32); CHLORIDE 102 MMOL/L (98-107); CREATININE SERUM 0.57 MG/DL (0.60-1.30); GFR ESTIMATED > 60; GLUCOSE 78 MG/DL (70-105); POTASSIUM 3.6 MMOL/L (3.6-5.0); SODIUM 138 MMOL/L (135-145); TOTAL PROTEIN 5.7 GM/DL (6.4-8.2)
[2020-07-23] MEDS ORDERED: POTASSIUM CL 10MEQ/50ML IVPB 100 ML IV ONE (22:26)
[2020-07-23 22:46] LABS: MAGNESIUM 1.3 MG/DL (1.6-2.4); PHOSPHORUS 2.2 MG/DL (2.3-4.7)
[2020-07-23] MEDS: POTASSIUM CL 10MEQ/50ML IVPB 50 ML IV SCH ×2 (22:54→23:45)
[2020-07-23 23:00] VITALS: BP 128/79
[2020-07-23] MEDS ORDERED: SODIUM PHOSPHATE INJ 15 MM in D5W 100 ML IVPB 100 ML IV ONE (23:00)
[2020-07-24] VITALS (25 sets, daily range): BP systolic 104–158; BP diastolic 58–104
[2020-07-24] MEDS: VANCOMYCIN 1250 MG/NS 250 ML IVPB IV SCH ×4 (01:15→13:31)
[2020-07-24] MEDS: LACTATED RINGERS 1,000 ML IV SCH ×2 (01:15→08:00)
[2020-07-24] MEDS: MAGNESIUM 1 GM/100 ML IVPB 100 ML IV SCH ×3 (01:19→03:32)
[2020-07-24] MEDS: RT-ALBUTEROL/IPRATROPIUM 3 ML (DUONEB) VIAL INH SCH ×6 (02:14→22:22)
[2020-07-24] MEDS: dilTIAZem DRIP PRE-MIX 125 ML IV SCH ×2 (02:30→19:46)
[2020-07-24] MEDS ORDERED: APIXABAN 5 MG (ELIQUIS) TABLET ONE (04:30)
[2020-07-24] MEDS ORDERED: DIGOXIN 0.25 MG/ML (LANOXIN) 2 ML AMP ONE (04:30)
[2020-07-24] MEDS: ACETAMINOPHEN 500 MG TAB (TYLENOL) PO PRN ×3 (04:41→22:30)
[2020-07-24] MEDS ORDERED: DIGOXIN 0.25 MG/ML (LANOXIN) 2 ML AMP IV ONE (04:45)
[2020-07-24] MEDS ORDERED: APIXABAN 5 MG (ELIQUIS) TABLET PO ONE (04:45)
[2020-07-24] MEDS: morphine INJ 4 MG/ML 1 ML (VIAL/SYRINGE) IVP PRN ×2 (05:46→17:44)
[2020-07-24 05:56] LABS: BASOPHILS % (AUTO) 0 % (0-10); EOSINOPHILS # (AUTO) 0.1 10^3/uL (0.0-0.3); EOSINOPHILS % (AUTO) 1 % (0-10); HEMATOCRIT 42 % (40-54); HEMOGLOBIN 13.9 g/dL (13.3-17.7); LYMPHOCYTES # (AUTO) 1.3 10^3/uL (1.0-4.0); LYMPHOCYTES % (AUTO) 12 % (12-44); MEAN CORPUSCULAR HEMOGLOBIN 31 pg (25-34); MEAN CORPUSCULAR HGB CONC 33 g/dL (32-36); MEAN CORPUSCULAR VOLUME 93 fL (80-99); MEAN PLATELET VOLUME 9.4 fL (9.0-12.2); MONOCYTES # (AUTO) 0.8 10^3/uL (0.0-1.0); MONOCYTES % (AUTO) 7 % (0-12); NEUTROPHILS # (AUTO) 8.3 10^3/uL (1.8-7.8); NEUTROPHILS % (AUTO) 77 % (42-75); PLATELET COUNT 284 10^3/uL (130-400); WHITE BLOOD COUNT 10.7 10^3/uL (4.3-11.0)
[2020-07-24 06:15] LABS: BUN/CREATININE RATIO 11; CALCIUM 8.5 MG/DL (8.5-10.1); CARBON DIOXIDE 27 MMOL/L (21-32); CHLORIDE 100 MMOL/L (98-107); CREATININE SERUM 0.57 MG/DL (0.60-1.30); GFR ESTIMATED > 60; GLUCOSE 103 MG/DL (70-105); MAGNESIUM 2.1 MG/DL (1.6-2.4); PHOSPHORUS 2.1 MG/DL (2.3-4.7); POTASSIUM 3.6 MMOL/L (3.6-5.0); SODIUM 136 MMOL/L (135-145)
--- NOTE | 2020-07-24 06:59 | Progress Note - Hospitalist ---
Subjective HPI/CC On Admission Date Seen by Provider: Jul 24, 2020 Time Seen by Provider: 11:00 CC: Perforated gastric ulcer HPI: This is a 65yoWM clinic pt of Dr. Rodrigez and Dr. Rich Oncology who presented to the ER with abdominal pain found to have a gastric ulcer perforation who was taken to surgery urgently by Dr. Sow patch placed and currently he is stable with an NG tube. He was recently diagnosed with brain cancer in May, had radiation treatment and remains on Decadron. He did want to restart his Decadron but I did evp general counsel him on the fact that steroids has a lot to do with gastric ulcer formation and he understands that and he will hold off. He does currently smoke and he does have coarse breath sounds and I will go ahead and start nebulizer treatments and be high alert for pneumonia. Subjective/Events-last exam Patient stable Required transfer to ICU after HR 140's and AF on EKG Cardizem drip initiated Cardiology consulted Patient still thinking he is ready to go home tomorrow and his son can pick him up but he can't even walk at this time Laurence started Talking about Decadron again with the nurse and he talks about is constantly Review of Systems General: Fatigue, Malaise Pulmonary: Dyspnea Neurological: Confusion Focused Exam Lactate Level 07/23/20 21:15: Lactic Acid Level 0.74 Objective Exam Vital Signs Vital Signs Date Time Temp Pulse Resp B/P (MAP) Pulse Ox O2 Delivery O2 Flow Rate FiO2 07/24/20 20:00 97 Nasal Cannula 2.00 07/24/20 19:00 37.1 82 22 158/104 (122) Capillary Refill : Less Than 3 Seconds General Appearance: No Apparent Distress, WD/WN, Chronically ill Respiratory: Decreased Breath Sounds Cardiovascular: Regular Rate, Rhythm Neurologic/Psychiatric: Alert, Oriented x3, Disoriented Results/Procedures Lab Laboratory Tests 07/23/20 21:15 07/24/20 05:50 Patient resulted labs reviewed. Assessment/Plan Assessment and Plan Assess & Plan/Chief Complaint Assessment: s/p gastric ulcer perforation-holding Decadron Brain cancer COPD Smoker PNA Ileus Anemia Seizures from brain tumor AF RVR new onset requiring ICU transfer Plan: Monitor closely Keppra IV abx Nebs O2 07/24/20: ICU care Cardiology IV abx Diagnosis/Problems Diagnosis/Problems (1) Perforated ulcer Status: Acute (2) Very heavy cigarette smoker (40 or more per day) Status: Acute (3) Alcoholism Status: Acute (4) COPD (chronic obstructive pulmonary disease) Status: Acute Clinical Quality Measures DVT/VTE Risk/Contraindication: Contraindications-Pharm: Other *list below* Other: perforated ulcer KIZZY GUAMAN DO Jul 24, 2020 06:59
[2020-07-24] MEDS ORDERED: KCL 20 MEQ TAB (K-DUR) PO ONE (07:15)
[2020-07-24] MEDS: PANTOPRAZOLE 40 MG (PROTONIX) VIAL IVP SCH ×2 (08:01→20:47)
--- NOTE | 2020-07-24 08:52 | Progress Note - Surgery ---
ENMA HULL MED STUDENT 07/24/20 0852: Subjective Date Seen by a Provider: Jul 24, 2020 Time Seen by a Provider: 06:50 Subjective/Events-last exam Don states his abdominal pain is better. Has been passing bowels. States his SOB is at baseline, not worse. Denies heart fluttering episodes, chest pain, nausea, and cough. Focused Exam Lactate Level 07/23/20 21:15: Lactic Acid Level 0.74 Objective Exam Vital Signs Date Time Temp Pulse Resp B/P (MAP) Pulse Ox O2 Delivery O2 Flow Rate FiO2 07/24/20 08:00 66 11 119/58 (78) 92 Room Air 07/24/20 07:22 Room Air 07/24/20 07:14 94 Nasal Cannula 1.50 07/24/20 07:00 71 07/24/20 07:00 67 13 112/80 (91) 94 Nasal Cannula 1.50 07/24/20 06:00 67 12 104/71 (82) 91 Nasal Cannula 1.50 07/24/20 05:00 138 17 130/72 (91) 93 Nasal Cannula 1.50 07/24/20 04:00 94 Nasal Cannula 1.50 07/24/20 04:00 135 15 115/83 (94) 95 Nasal Cannula 1.50 07/24/20 03:45 36.1 134 15 94 Nasal Cannula 1.50 07/24/20 03:00 134 15 124/85 (98) 95 Nasal Cannula 2.00 07/24/20 02:00 85 13 151/96 (114) 99 Nasal Cannula 2.00 07/24/20 01:00 81 07/24/20 01:00 80 14 149/97 (114) 98 Nasal Cannula 2.00 07/24/20 00:00 92 16 128/87 (101) 97 Nasal Cannula 2.00 07/23/20 23:08 90 07/23/20 23:00 88 12 128/79 (95) 97 Nasal Cannula 2.00 07/23/20 22:30 Nasal Cannula 2.00 07/23/20 21:35 36.7 20 135/89 (104) 90 Room Air 07/23/20 21:00 94 Room Air 07/23/20 20:25 36.6 136 18 124/84 (97) 93 Room Air 07/23/20 18:36 91 Room Air 07/23/20 16:00 36.4 116 16 147/86 (106) 93 Room Air 07/23/20 10:42 96 Room Air 07/23/20 09:00 94 Room Air I & O 07/24/20 07:00 Intake Total 2830 ml Output Total 1405 ml Balance 1425 ml Capillary Refill : Less Than 3 Seconds General Appearance: No Apparent Distress, Chronically ill HEENT: PERRL/EOMI, Other (poor dentition) Neck: Normal Inspection Respiratory: Normal Breath Sounds, No Accessory Muscle Use, No Respiratory Distress, Decreased Breath Sounds (bases) Cardiovascular: Regular Rate, Rhythm Peripheral Pulses: 2+ Radial Pulses (R), 2+ Radial Pulses (L) Gastrointestinal: normal bowel sounds, soft, distended (minimally); No guarding, No rebound; tenderness (minimal abdominal tenderness to the right of his midline incision above the umbilicus. Nontender otherwise), other (SILKE with 25mL serosanguinous fluid. Congealed pinkish clot also present in SILKE drain and in tubing. Midline incision clean, dry, intact without surrounding erythema. ) Extremity: Normal Capillary Refill, Pedal Edema (trace bilaterally) Neurologic/Psychiatric: Alert, Oriented x3 Skin: Normal Color, Warm/Dry Lymphatic: No Adenopathy (neck, groin) Results Lab Laboratory Tests 07/23/20 20:25: Glucometer 81 07/23/20 21:15: White Blood Count 11.7H, Red Blood Count 4.58, Hemoglobin 13.9, Hematocrit 42, Mean Corpuscular Volume 93, Mean Corpuscular Hemoglobin 30, Mean Corpuscular Hemoglobin Concent 33, Red Cell Distribution Width 16.4H, Platelet Count 269, Mean Platelet Volume 9.1, Immature Granulocyte % (Auto) 2, Neutrophils (%) (Auto) 77H, Lymphocytes (%) (Auto) 12, Monocytes (%) (Auto) 8, Eosinophils (%) (Auto) 0, Basophils (%) (Auto) 0, Neutrophils # (Auto) 9.1H, Lymphocytes # (Auto) 1.4, Monocytes # (Auto) 0.9, Eosinophils # (Auto) 0.1, Basophils # (Auto) 0.0, Immature Granulocyte # (Auto) 0.2H, Sodium Level 138, Potassium Level 3.6, Chloride Level 102, Carbon Dioxide Level 23, Anion Gap 13, Blood Urea Nitrogen 7, Creatinine 0.57L, Estimat Glomerular Filtration Rate > 60, BUN/Creatinine Ratio 12, Glucose Level 78, Lactic Acid Level 0.74, Calcium Level 8.2L, Corrected Calcium 9.2, Phosphorus Level 2.2L, Magnesium Level 1.3L, Total Bilirubin 0.5, Aspartate Amino Transf (AST/SGOT) 17, Alanine Aminotransferase (ALT/SGPT) 19, Alkaline Phosphatase 54, Troponin I < 0.028, B-Type Natriuretic Peptide 100.7H, Total Protein 5.7L, Albumin 2.7L 07/24/20 05:50: White Blood Count 10.7, Red Blood Count 4.56, Hemoglobin 13.9, Hematocrit 42, Mean Corpuscular Volume 93, Mean Corpuscular Hemoglobin 31, Mean Corpuscular Hemoglobin Concent 33, Red Cell Distribution Width 16.2H, Platelet Count 284, Mean Platelet Volume 9.4, Immature Granulocyte % (Auto) 2, Neutrophils (%) (Auto) 77H, Lymphocytes (%) (Auto) 12, Monocytes (%) (Auto) 7, Eosinophils (%) (Auto) 1, Basophils (%) (Auto) 0, Neutrophils # (Auto) 8.3H, Lymphocytes # (Auto) 1.3, Monocytes # (Auto) 0.8, Eosinophils # (Auto) 0.1, Basophils # (Auto) 0.0, Immature Granulocyte # (Auto) 0.2H, Sodium Level 136, Potassium Level 3.6, Chloride Level 100, Carbon Dioxide Level 27, Anion Gap 9, Blood Urea Nitrogen 6L , Creatinine 0.57L, Estimat Glomerular Filtration Rate > 60, BUN/Creatinine Ratio 11, Glucose Level 103, Calcium Level 8.5, Phosphorus Level 2.1L, Magnesium Level 2.1 Microbiology 07/22/20 Blood Culture - Preliminary, Resulted No growth Assessment/Plan Assessment/Plan Assessment/Plan Gastric Perforation -s/p ex lap with oversew of Gastric perforation and modified Burton Patch, IV fluids, IV ABX, pain control, anti-emetics as needed. NG tube removed, on clears. No nausea, passed multiple bms including solids. taken to ICU after asymptomatic tachycardia on vitals check, EKG showed atrial tachycardia, resolved with cardizem drip. Lung CA with mets to brain - chronic cough, sputum production, coarse breath sounds. encouraged IS use, working with PT, walking BETTY. Seizure-like episode several days ago, is on Keppra. None since. Bacteremia - on Vancomycin Clinical Quality Measures DVT/VTE Risk/Contraindication: Contraindications-Pharm: Other *list below* Other: perforated ulcer ELIZ SOW DO 07/25/20 1613: Subjective Time Seen by a Provider: 17:54 Subjective/Events-last exam Pt seen and examined, states he is doing better and asking to increase diet. Review of Systems General: No Chills Pulmonary: No Dyspnea, No Cough Cardiovascular: No: Chest Pain, Palpitations Gastrointestinal: No: Nausea, Vomiting Objective Exam General Appearance: No Apparent Distress, Chronically ill Respiratory: Normal Breath Sounds, No Accessory Muscle Use, No Respiratory Distress, Decreased Breath Sounds (bases) Cardiovascular: Regular Rate, Rhythm, No Murmur Gastrointestinal: soft, distended (minimally); No guarding, No rebound; tenderness (minimal abdominal tenderness to the right of his midline incision above the umbilicus. Nontender otherwise), other (SILKE with 25mL serosanguinous fluid. Congealed pinkish clot also present in SILKE drain and in tubing. Midline i ncision clean, dry, intact without surrounding erythema. ) Assessment/Plan Assessment/Plan Assessment/Plan NG tube removed, on clears. No nausea, passed multiple bms including solids. taken to ICU after asymptomatic tachycardia on vitals check, EKG showed atrial tachycardia, resolved with cardizem drip. Lung CA with mets to brain - chronic cough, sputum production, coarse breath sounds. encouraged IS use, working with PT, walking BETTY. Seizure-like episode several days ago, is on Keppra. None since. Bacteremia - on Vancomycin Supervisory-Addendum Brief Verification & Attestation Participated in pt care: history, MDM, physical Personally performed: exam, history, MDM Care discussed with: Medical Student Procedures: n/a Verification and Attestation of Medical Student E/M Service A medical student performed and documented this service. I then reviewed and verified all information documented by the medical student and made modifications to such information, when appropriate. I personally performed a physical exam, medical decision making and then discussed any differences be tween the notes and made revisions as necessary to create one note. Eliz Sow , 07/25/20 , 16:13 ENMA HULL MED STUDENT Jul 24, 2020 08:52 ELIZ SOW DO Jul 25, 2020 16:13
[2020-07-24] MEDS ORDERED: TROUGH ORDER-PHARMACY XX ONE (10:00)
[2020-07-24] MEDS: VANCOMYCIN 1500 MG/NS 500 ML IVPB IV SCH ×2 (14:20)
--- NOTE | 2020-07-24 14:26 | Consultation-Cardiology ---
HPI-Cardiology Cardiology Consultation: Date of Consultation 07/24/20 Time Seen by a Provider: 12:30 Date of Admission Attending Physician Ayden Sow DO Admitting Physician Yesenia Cotter DO Consulting Physician LASHAY HAYDEN MD, MA, FACP, FACC, [facility] [place] [facility] Physician requesting consult: Dr Torrez HPI: Chief Complaint: Reason for card consult: A Fib/Fl HPI 65 yo man who has patch repair for gastric perforation on 07/18/20, was on the Medical Floor, incidentally found to have A Fib/Fl after evaluation for a fast pulse. Does not report palp. Denies cp or syncope or shortness of breath at rest or swelling. Has a h/o seizures, denies focal weakness. Does not report n/v/d at this time Review of Systems-Cardiology Review of Systems Constitutional: malaise; No weight loss, No weight gain Eyes: No vision change Ears/Nose/Throat: No ear discharge, No nasal drainage, No recent hearing loss Respiratory: As described under HPI Cardiovascular: As described under HPI Gastrointestinal: No diarrhea, No nausea, No vomiting Genitourinary: No dysuria, No hematuria, No urine frequency changes Musculoskeletal: back pain (chronic) Skin: No rash, No ulcerations Psychiatric/Neurological: seizure; No anxiety, No focal weakness, No syncope Hematologic: No bleeding abnormalities All Other Systems Reviewed Negative Unless Noted: Yes LDH-Awcsmb-Ggebpt Hx Patient Social History Marrital Status: single Employed/Student: retired Smoking Status: Current Everyday Smoker (Pack per day) Alcohol Use?: Yes Immunizations Up To Date Tetanus Booster (TDap): Less than 5yrs Past Medical History PMH As described under Assessment. Family Medical History Family Medical History: He does not report fam h/o early CAD or SCD Allergies and Home Medications Allergies Coded Allergies: No Known Drug Allergies (Unverified , 05/28/20) Home Medications Albuterol Sulfate 6.7 Gm Hfa.aer.ad, 2 PUFF INH Q4- 6H PRN for SHORTNESS OF BREATH, (Reported) Last Action: Held Dexamethasone 4 Mg Tablet, 4 MG PO Q8H, (Reported) Last Action: Held Docusate Sodium 100 Mg Tablet, 100-200 MG PO DAILY PRN for CONSTIPATION-1ST LINE, (Reported) Last Action: Held Hydrocodone/Acetaminophen 1 Each Tablet, 1 EA PO Q6H PRN for PAIN-MODERATE (5- 7), (Reported) Last Action: Held Ibuprofen 800 Mg Tablet, 800 MG PO Q8H PRN for PAIN-MILD (1-4), (Reported) Last Action: Held Nicotine 1 Each Patch.td24, 1 PATCH TD DAILY PRN for SMOKING CESSATION, (Reported) Last Action: Held Trazodone HCl 50 Mg Tablet, 50 MG PO HS PRN for SLEEP, (Reported) Last Action: Held Patient Home Medication List Home Medication List Reviewed: Yes Physical Exam-Cardiology Physical Exam Vital Signs/I&O 07/24/20 07/24/20 07/24/20 07/24/20 03:00 03:45 04:00 04:00 Temp 36.1 Pulse 134 134 135 Resp 15 15 15 B/P (MAP) 124/85 (98) 115/83 (94) Pulse Ox 95 94 95 94 O2 Delivery Nasal Cannula Nasal Cannula Nasal Cannula Nasal Cannula O2 Flow Rate 2.00 1.50 1.50 1.50 07/24/20 07/24/20 07/24/20 07/24/20 05:00 06:00 07:00 07:00 Pulse 138 67 67 71 Resp 17 12 13 B/P (MAP) 130/72 (91) 104/71 (82) 112/80 (91) Pulse Ox 93 91 94 O2 Delivery Nasal Cannula Nasal Cannula Nasal Cannula O2 Flow Rate 1.50 1.50 1.50 07/24/20 07/24/20 07/24/20 07/24/20 07:14 07:22 08:00 08:00 Pulse 66 Resp 11 B/P (MAP) 119/58 (78) Pulse Ox 94 97 92 O2 Delivery Nasal Cannula Room Air Nasal Cannula Room Air O2 Flow Rate 1.50 1.50 07/24/20 07/24/20 07/24/20 07/24/20 09:00 10:00 11:00 12:00 Pulse 66 73 68 65 Resp 13 15 16 12 B/P (MAP) 129/63 (85) 135/76 (95) 124/75 (91) 126/59 (81) Pulse Ox 93 93 93 90 O2 Delivery Room Air Room Air Room Air Room Air 07/24/20 07/24/20 07/24/20 07/24/20 12:00 12:00 12:28 13:00 Temp 36.8 Pulse 68 67 Resp 14 B/P (MAP) 143/85 (104) Pulse Ox 93 91 O2 Delivery Room Air Room Air 07/24/20 14:00 Pulse 68 Resp 16 B/P (MAP) 132/75 (94) Pulse Ox 93 O2 Delivery Room Air 07/24/20 00:00 Intake Total 800 ml Output Total 305 ml Balance 495 ml Capillary Refill : Less Than 3 Seconds Constitutional: AAO x 3, well-developed, well-nourished HEENT: EOMI, hearing is well preserved; No xanthelasmas are seen Neck: carotid pulses are 2 + bilaterally, with good upstrokes Respiratory: No accessory muscle use; other (fair to good, bilateral air entry) Cardiovascular: regular rate-rhythm, S1 and S2, systolic murmur (soft ANANTH at card base) Gastrointestinal: No tender; soft; No guarding, No rebound; audible bowel sounds Extremities: No clubbing, No cyanosis, No significant edema Neurologic/Psychiatric: oriented x 3, other (moves all limbs equally) Skin: No rash on exposed areas, No ulcerations on exposed areas Data Review Labs Laboratory Tests 07/23/20 20:25: Glucometer 81 07/23/20 21:15: White Blood Count 11.7H, Red Blood Count 4.58, Hemoglobin 13.9, Hematocrit 42, Mean Corpuscular Volume 93, Mean Corpuscular Hemoglobin 30, Mean Corpuscular Hemoglobin Concent 33, Red Cell Distribution Width 16.4H, Platelet Count 269, Mean Platelet Volume 9.1, Immature Granulocyte % (Auto) 2, Neutrophils (%) (Auto) 77H, Lymphocytes (%) (Auto) 12, Monocytes (%) (Auto) 8, Eosinophils (%) (Auto) 0, Basophils (%) (Auto) 0, Neutrophils # (Auto) 9.1H, Lymphocytes # (Auto) 1.4, Monocytes # (Auto) 0.9, Eosinophils # (Auto) 0.1, Basophils # (Auto) 0.0, Immature Granulocyte # (Auto) 0.2H, Sodium Level 138, Potassium Level 3.6, Chloride Level 102, Carbon Dioxide Level 23, Anion Gap 13, Blood Urea Nitrogen 7, Creatinine 0.57L, Estimat Glomerular Filtration Rate > 60, BUN/Creatinine Ratio 12, Glucose Level 78, Lactic Acid Level 0.74, Calcium Level 8.2L, Corrected Calcium 9.2, Phosphorus Level 2.2L, Magnesium Level 1.3L, Total Bilirubin 0.5, Aspartate Amino Transf (AST/SGOT) 17, Alanine Aminotransferase ( ALT/SGPT) 19, Alkaline Phosphatase 54, Troponin I < 0.028, B-Type Natriuretic Peptide 100.7H, Total Protein 5.7L, Albumin 2.7L 07/24/20 05:50: White Blood Count 10.7, Red Blood Count 4.56, Hemoglobin 13.9, Hematocrit 42, Mean Corpuscular Volume 93, Mean Corpuscular Hemoglobin 31, Mean Corpuscular Hemoglobin Concent 33, Red Cell Distribution Width 16.2H, Platelet Count 284, Mean Platelet Volume 9.4, Immature Granulocyte % (Auto) 2, Neutrophils (%) (Auto) 77H, Lymphocytes (%) (Auto) 12, Monocytes (%) (Auto) 7, Eosinophils (%) (Auto) 1, Basophils (%) (Auto) 0, Neutrophils # (Auto) 8.3H, Lymphocytes # (Auto) 1.3, Monocytes # (Auto) 0.8, Eosinophils # (Auto) 0.1, Basophils # (Auto) 0.0, Immature Granulocyte # (Auto) 0.2H, Sodium Level 136, Potassium Level 3.6, Chloride Level 100, Carbon Dioxide Level 27, Anion Gap 9, Blood Urea Nitrogen 6L , Creatinine 0.57L, Estimat Glomerular Filtration Rate > 60, BUN/Creatinine Ratio 11, Glucose Level 103, Calcium Level 8.5, Phosphorus Level 2.1L, Magnesium Level 2.1 07/24/20 12:37: Vancomycin Level Trough 10.3 Microbiology 07/22/20 Blood Culture - Preliminary, Resulted No growth Laboratory Tests 07/23/20 04:40 07/23/20 21:15 07/24/20 05:50 A/P-Cardiology Assessment/Admission Diagnosis PAF S/p patch repair for gastric perf on 07/18/20, managed by the Surg Svce H/o R-sided brain mass and h/o seizure due to that, managed by Dr Torrez Electrolyte abnormalities on 07/23/20, now corrected Discussion and Recomendations * Long-acting dilt * Oral anticoag if permitted by Dr Torrez * Monitor labs * Echo * I discussed his CV issues with him and answered questions Clinical Quality Measures DVT/VTE Risk/Contraindication: Contraindications-Pharm: Other *list below* Other: perforated ulcer LASHAY HAYDEN MD [facility] Jul 24, 2020 14:26
[2020-07-24] MEDS: FLUCONAZOLE 200 MG/100 ML 100 ML IV SCH (19:51)
[2020-07-24] MEDS: APIXABAN 5 MG (ELIQUIS) TABLET PO SCH (20:47)
[2020-07-25] VITALS (18 sets, daily range): BP systolic 112–151; BP diastolic 62–89
[2020-07-25] MEDS: VANCOMYCIN 1500 MG/NS 500 ML IVPB IV SCH ×4 (02:25→16:01)
[2020-07-25] MEDS: morphine INJ 4 MG/ML 1 ML (VIAL/SYRINGE) IVP PRN ×2 (02:33→18:58)
[2020-07-25] MEDS: RT-ALBUTEROL/IPRATROPIUM 3 ML (DUONEB) VIAL INH SCH ×6 (02:49→22:00)
[2020-07-25 03:09] LABS: BASOPHILS % (AUTO) 0 % (0-10); EOSINOPHILS # (AUTO) 0.1 10^3/uL (0.0-0.3); EOSINOPHILS % (AUTO) 1 % (0-10); HEMATOCRIT 41 % (40-54); HEMOGLOBIN 13.4 g/dL (13.3-17.7); LYMPHOCYTES # (AUTO) 1.2 10^3/uL (1.0-4.0); LYMPHOCYTES % (AUTO) 11 % (12-44); MEAN CORPUSCULAR HEMOGLOBIN 30 pg (25-34); MEAN CORPUSCULAR HGB CONC 33 g/dL (32-36); MEAN CORPUSCULAR VOLUME 93 fL (80-99); MONOCYTES # (AUTO) 0.9 10^3/uL (0.0-1.0); MONOCYTES % (AUTO) 9 % (0-12); NEUTROPHILS # (AUTO) 8.3 10^3/uL (1.8-7.8); NEUTROPHILS % (AUTO) 77 % (42-75); PLATELET COUNT 282 10^3/uL (130-400); WHITE BLOOD COUNT 10.8 10^3/uL (4.3-11.0)
[2020-07-25 03:31] LABS: BUN/CREATININE RATIO 9; CALCIUM 8.5 MG/DL (8.5-10.1); CARBON DIOXIDE 23 MMOL/L (21-32); CHLORIDE 100 MMOL/L (98-107); CREATININE SERUM 0.55 MG/DL (0.60-1.30); GFR ESTIMATED > 60; GLUCOSE 66 MG/DL (70-105); MAGNESIUM 1.6 MG/DL (1.6-2.4); PHOSPHORUS 2.6 MG/DL (2.3-4.7); POTASSIUM 3.9 MMOL/L (3.6-5.0); SODIUM 137 MMOL/L (135-145)
[2020-07-25] MEDS: MAGNESIUM 1 GM/100 ML IVPB 100 ML IV SCH ×2 (03:45→04:42)
[2020-07-25] MEDS ORDERED: KCL 20 MEQ TAB (K-DUR) PO SCH (06:00)
[2020-07-25] MEDS ORDERED: MAGNESIUM 1 GM/100 ML IVPB 100 ML IV SCH (06:00)
[2020-07-25] MEDS ORDERED: POTASSIUM CL 10MEQ/50ML IVPB 50 ML IV SCH (06:00)
--- NOTE | 2020-07-25 08:07 | Physical Therapy Progress Note ---
Therapy Progress Note Patient transferred to ICU. PT will require new orders to resume therapy. DRU GOLDEN PT Jul 25, 2020 08:07
--- NOTE | 2020-07-25 08:09 | Diagnostic Imaging Report ---
HISTORY: Atrial fibrillation. COMPARISON: 07/23/2020 TECHNIQUE: Frontal view of the chest. FINDINGS: There are diffuse interstitial opacities with airspace consolidation in the right lung base. This appears stable since the prior exam. The cardiac silhouette is normal in size. There is no pleural effusion or pneumothorax. IMPRESSION: 1. Diffuse interstitial opacities with right basilar airspace opacity, unchanged since the prior exam. Dictated by: Dictated on workstation # [id number]
--- NOTE | 2020-07-25 08:20 | Progress Note - Cardiology ---
Cardiology SOAP Progress Note Subjective: Sitting up on the side of the bed with PT Gen weakness No c/o CP Objective: I&O/Vital Signs 07/26/20 07/26/20 07/26/20 07/26/20 00:19 04:20 06:27 07:49 Temp 36.9 37.0 37.0 Pulse 69 67 71 Resp 20 24 20 B/P (MAP) 153/83 (106) 129/76 (93) 143/70 (94) Pulse Ox 98 98 99 98 O2 Delivery Nasal Cannula Nasal Cannula Nasal Cannula Nasal Cannula O2 Flow Rate 2.00 2.00 1.50 2.00 07/26/20 00:00 Intake Total 920 ml Output Total 340 ml Balance 580 ml Constitutional: AAO x 3, well-developed, well-nourished Respiratory: No accessory muscle use; other (fair to good, bilateral air entry) Cardiovascular: regular rate-rhythm, S1 and S2, systolic murmur (soft ANANTH at card base) Gastrointestional: No tender; soft; No guarding, No rebound; audible bowel sounds Extremities: No clubbing, No cyanosis, No significant edema Neurologic/Psychiatric: oriented x 3, other (moves all limbs equally) Skin: No rash on exposed areas, No ulcerations on exposed areas Results/Procedures: Labs Laboratory Tests 07/26/20 05:25: White Blood Count 11.2H, Red Blood Count 4.42, Hemoglobin 13.3, Hematocrit 41, Mean Corpuscular Volume 93, Mean Corpuscular Hemoglobin 30, Mean Corpuscular Hemoglobin Concent 32, Red Cell Distribution Width 16.1H, Platelet Count 310, Mean Platelet Volume 9.4, Sodium Level 138, Potassium Level 3.8, Chloride Level 101, Carbon Dioxide Level 22, Anion Gap 15H, Blood Urea Nitrogen 5L, Creatinine 0.56L, Estimat Glomerular Filtration Rate > 60, BUN/Creatinine Ratio 9, Glucose Level 72, Calcium Level 8.8 Microbiology 07/24/20 MRSA Screen - Final, Complete MRSA not isolated 07/22/20 Blood Culture - Preliminary, Resulted No growth Procedures NAME: ISAIAH PARTIDA [facility] REC#: [id number] PT STATUS: ADM IN : 1955 PHYSICIAN: ELIZ DAVIS DO ADMIT DATE: 07/18/20/ICU Draft Date of Exam:07/25/20 CHEST 1 VIEW, AP/PA ONLY HISTORY: Atrial fibrillation. COMPARISON: 07/23/2020 TECHNIQUE: Frontal view of the chest. FINDINGS: There are diffuse interstitial opacities with airspace consolidation in the right lung base. This appears stable since the prior exam. The cardiac silhouette is normal in size. There is no pleural effusion or pneumothorax. IMPRESSION: 1. Diffuse interstitial opacities with right basilar airspace opacity, unchanged since the prior exam. Dictated on workstation # [id number] Dict: 07/25/20 0805 Trans: 07/25/20 0809 [id number] Interpreted by: BLANCA MATHEWS MD , managed by the Surg Svce H/o R-sided brain mass and h/o seizure due to that, managed by Dr Torrez Electrolyte abnormalities on 07/23/20, now corrected Plan: * Continue long-acting dilt * Continue oral anticoag with Eliquis as permitted by Dr Torrez * Monitor labs * Echo today GORDO ROTHMAN Jul 25, 2020 08:20
[2020-07-25] MEDS: APIXABAN 5 MG (ELIQUIS) TABLET PO SCH ×2 (08:21→20:00)
[2020-07-25] MEDS: PANTOPRAZOLE 40 MG (PROTONIX) VIAL IVP SCH ×2 (08:21→19:55)
[2020-07-25] MEDS: ACETAMINOPHEN 500 MG TAB (TYLENOL) PO PRN ×2 (08:33→17:31)
--- NOTE | 2020-07-25 10:30 | Physical Therapy Evaluation ---
PT Evaluation-General Medical Diagnosis Admission Date Jul 18, 2020 at 11:32 Medical Diagnosis: Perforated Ulcer Onset Date: Jul 18, 2020 Therapy Diagnosis Therapy Diagnosis: generalized weakness/debility Precautions Precautions/Isolations: Seizure, Fall Prevention, Standard Precautions, Pressure Ulcer Referral Physician: Chavez Reason for Referral: Evaluation/Treatment Medical History Pertinent Medical History: CAD, COPD, HTN, Smoking Current History transfer to ICU Reviewed History: Yes Social History Home: Single Level Current Living Status: Other Family Entry Into Home: Stairs With Railing PT Steps Into Home: 5 Prior Prior Level of Function SCALE: Activities may be completed with or without assistive devices. 1-Bnxcjpxebo-kzumaec completes the activity by him/herself with no assistance from a helper. 5-Set-up or Clean-up Assistance-helper sets up or cleans up; patient completes activity. [place] assists only prior to or following the activity. 4-Supervision or Touching Assistance-helper provides verbal cues and/or touching/steadying and/or contact guard assistance as patient completes activity. Assistance may be provided throughout the activity or intermittently. 3-Partial/Moderate Assistance-helper does LESS THAN HALF the effort. [place] lifts, holds or supports trunk or limbs, but provides less than half the effort. 2-Substantial/Maximal Assistance-helper does MORE THAN HALF the effort. [place] lifts or holds trunk or limbs and provides more than half the effort. 9-Rbctwpeij-jqvwzf does ALL the effort. Patient does none of the effort to complete the activity. Or, the assistance of 2 or more helpers is required for the patient to complete the activity. If activity was not attempted, code reason: 7-Patient Refused. 9-Not Applicable-not attempted and the patient did not perform the activity before the current illness, exacerbation or injury. 10-Not Attempted due to Environmental Limitations-(lack of equipment, weather restraints, etc.). 88-Not Attempted due to Medical Conditions or Safety Concerns. Bed Mobility: 6 Transfers (B,C,W/C): 6 Gait: 6 Indoor Mobility (Ambulation): Independent Stairs: Independent Prior Devices Use: None PT Evaluation-Current Subjective Patient states his left leg and arm "don't work". Objective Patient Orientation: Person, Time, Situation Attachments: Oxygen, [place] Catheter, IV ROM/Strength ROM Lower Extremities bilateral LE WFL Strength Lower Extremities right LE 3-/5 grossly/left LE flaccid Integumentary/Posture Integumentary refer to nursing notes Bowel Incontinence: No Bladder Incontinence: [place] Cath Posture WFL Neuromuscular (Tone, Coordination, Reflexes) flaccid left LE/UE/diminished coordination Sensory Vision: Wears Glasses Hearing: Functional Sensation Right Lower Extremit: Intact Sensation Left Lower Extremity: Intact Transfers Roll Left to Right (QC): 1 (x 2) Sit to Lying (QC): 1 (x 2) Lying to Sitting/Side of Bed(Q: 1 (x 2) Sit to Stand (QC): 88 Chair/Rpq-rn-Prkto Xfer(QC): 88 dependent assist with noted left lean/patient unable to maintain sitting EOB without dependent assist of 2 . Gait Does the Patient Walk?: No and Walking Goal IS indicated Balance Sitting Static: Poor Sitting Dynamic: Poor Assessment/Needs 65 y.o. male, will benefit from skilled PT to address functional strength and mobility to improve current LOF. Patient has had a declined in physical status over the past week and transferred to ICU. Rehab Potential: Poor PT Cut Off Man Goals Jail Goals PT Jail Goals Time Frame: August 06, 2020 Roll Left & Right (QC): 3 Sit to Lying (QC): 3 Lying-Sitting on Side/Bed(QC): 3 Sit to Stand (QC): 3 Chair/Rxh-vy-Qyvec Xfer(QC): 3 Toilet Transfer (QC): 3 PT Plan Problem List Problem List: Activity Tolerance, Functional Strength, Safety, Balance, Gait, Transfer, Bed Mobility Treatment/Plan Treatment Plan: Continue Plan of Care Treatment Plan: Bed Mobility, Education, Functional Activity Oli, Functional Strength, Gait, Safety, Therapeutic Exercise, Transfers Treatment Duration: August 06, 2020 Frequency: 6 times per week Estimated Hrs Per Day: .25 hour per day Patient and/or Family Agrees t: Yes Discharge Recommendations Therapy Discharge Recommendati: Other, See Comments (assisted facility) Time/GCodes Time In: 830 Time Out: 843 Total Billed Treatment Time: 13 [facility] Jul 25, 2020 10:30
--- NOTE | 2020-07-25 13:19 | Progress Note - Cardiology ---
Cardiology SOAP Progress Note Subjective: Gen weakness and malaise No cp or palp or syncope No n/v/d Objective: I&O/Vital Signs 07/25/20 07/25/20 07/25/20 07/25/20 02:00 02:49 03:00 03:42 Temp 36.8 Pulse 79 71 Resp 15 12 B/P (MAP) 136/82 (112) 142/89 (116) Pulse Ox 97 95 97 O2 Delivery Nasal Cannula Nasal Cannula Nasal Cannula O2 Flow Rate 2.00 1.50 2.00 07/25/20 07/25/20 07/25/20 07/25/20 03:50 04:00 05:09 06:00 Pulse 71 64 73 Resp 24 12 17 B/P (MAP) 139/73 (109) 144/77 (107) 144/83 (101) Pulse Ox 97 97 97 98 O2 Delivery Nasal Cannula Nasal Cannula Nasal Cannula Nasal Cannula O2 Flow Rate 2.00 2.00 2.00 2.00 07/25/20 07/25/20 07/25/20 07/25/20 06:39 07:00 07:29 08:00 Temp 37.2 Pulse 77 70 71 Resp 10 11 B/P (MAP) 130/74 (92) 148/75 (99) Pulse Ox 97 97 O2 Delivery Nasal Cannula Nasal Cannula O2 Flow Rate 2.00 2.00 07/25/20 07/25/20 07/25/20 07/25/20 09:00 10:00 11:00 12:00 Temp 36.4 Pulse 64 72 68 Resp 10 12 13 B/P (MAP) 139/71 (93) 146/81 (102) 112/71 (85) Pulse Ox 98 96 97 O2 Delivery Nasal Cannula Nasal Cannula Nasal Cannula O2 Flow Rate 2.00 2.00 2.00 07/25/20 07/25/20 12:00 12:51 Pulse 66 69 Resp 12 B/P (MAP) 136/74 (94) O2 Delivery Nasal Cannula O2 Flow Rate 2.00 07/25/20 00:00 Intake Total 855 ml Output Total 200 ml Balance 655 ml Constitutional: AAO x 3, well-developed, well-nourished Respiratory: No accessory muscle use; other (fair to good, bilateral air entry) Cardiovascular: regular rate-rhythm, S1 and S2, systolic murmur (soft ANANTH at card base) Gastrointestional: No tender; soft; No guarding, No rebound; audible bowel sounds Extremities: No clubbing, No cyanosis, No significant edema Neurologic/Psychiatric: oriented x 3, other (moves all limbs equally) Skin: No rash on exposed areas, No ulcerations on exposed areas Results/Procedures: Labs Laboratory Tests 07/25/20 02:55: White Blood Count 10.8, Red Blood Count 4.44, Hemoglobin 13.4, Hematocrit 41, Mean Corpuscular Volume 93, Mean Corpuscular Hemoglobin 30, Mean Corpuscular Hemoglobin Concent 33, Red Cell Distribution Width 16.1H, Platelet Count 282, Mean Platelet Volume 9.0, Immature Granulocyte % (Auto) 2, Neutrophils (%) (Auto) 77H, Lymphocytes (%) (Auto) 11L, Monocytes (%) (Auto) 9, Eosinophils (%) (Auto) 1, Basophils (%) (Auto) 0, Neutrophils # (Auto) 8.3H, Lymphocytes # (Auto) 1.2, Monocytes # (Auto) 0.9, Eosinophils # (Auto) 0.1, Basophils # (Auto) 0.0, Immature Granulocyte # (Auto) 0.3H, Sodium Level 137, Potassium Level 3.9, Chloride Level 100, Carbon Dioxide Level 23, Anion Gap 14, Blood Urea Nitrogen 5L, Creatinine 0.55L, Estimat Glomerular Filtration Rate > 60, BUN/Creatinine Ratio 9, Glucose Level 66L, Calcium Level 8.5, Phosphorus Level 2.6, Magnesium Level 1.6 Microbiology 07/24/20 MRSA Screen - Final, Complete MRSA not isolated 07/22/20 Blood Culture - Preliminary, Resulted No growth A/P: Assessment: PAF Echo on 07/25/20: LVEF 50-55%, PASP 50-55 mmHg S/p patch repair for gastric perf on 07/18/20, managed by the Surg Svce H/o R-sided brain mass and h/o seizure due to that, managed by Dr Torrez Electrolyte abnormalities on 07/23/20, now corrected Plan: * Continue long-acting dilt * Continue oral anticoag with Eliquis as permitted by Dr Torrez * Monitor labs * Echo today LASHAY HAYDEN MD FACP FAC CCDS Jul 25, 2020 13:19
--- NOTE | 2020-07-25 13:41 | Progress Note - Surgery ---
ENMA H[employer] MED STUDENT 07/25/20 1340: Subjective Date Seen by a Provider: Jul 25, 2020 Time Seen by a Provider: 07:20 Subjective/Events-last exam Dewayne Jara reports continuing abdominal pain, improved slightly compared to yesterday. He states he is eager to go home and feels like a prisoner. Dewayne denies fever, chills, nausea, vomiting, worsening SOB, and denies cough worse than baseline with his lung cancer. Focused Exam Lactate Level 07/23/20 21:15: Lactic Acid Level 0.74 Objective Exam Vital Signs Date Time Temp Pulse Resp B/P (MAP) Pulse Ox O2 Delivery O2 Flow Rate FiO2 07/25/20 13:00 75 13 117/82 (94) 85 Nasal Cannula 2.00 07/25/20 12:51 69 07/25/20 12:00 66 12 136/74 (94) Nasal Cannula 2.00 07/25/20 12:00 36.4 07/25/20 11:00 68 13 112/71 (85) 97 Nasal Cannula 2.00 07/25/20 10:00 72 12 146/81 (102) 96 Nasal Cannula 2.00 07/25/20 09:00 64 10 139/71 (93) 98 Nasal Cannula 2.00 07/25/20 08:00 71 11 148/75 (99) 97 Nasal Cannula 2.00 07/25/20 07:29 37.2 07/25/20 07:00 70 10 130/74 (92) 97 Nasal Cannula 2.00 07/25/20 06:39 77 07/25/20 06:00 73 17 144/83 (101) 98 Nasal Cannula 2.00 07/25/20 05:09 64 12 144/77 (107) 97 Nasal Cannula 2.00 07/25/20 04:00 71 24 139/73 (109) 97 Nasal Cannula 2.00 07/25/20 03:50 97 Nasal Cannula 2.00 07/25/20 03:42 36.8 07/25/20 03:00 71 12 142/89 (116) 97 Nasal Cannula 2.00 07/25/20 02:49 95 Nasal Cannula 1.50 07/25/20 02:00 79 15 136/82 (112) 97 Nasal Cannula 2.00 07/25/20 01:00 65 07/25/20 01:00 73 20 142/78 (109) 97 Nasal Cannula 2.00 07/25/20 00:00 68 13 149/75 (121) 98 Nasal Cannula 2.00 07/24/20 23:10 98 Nasal Cannula 2.00 07/24/20 23:10 36.6 66 12 142/82 (102) 98 Nasal Cannula 2.00 07/24/20 23:00 65 14 142/82 (102) 97 Nasal Cannula 2.00 07/24/20 22:00 68 18 134/66 (88) 94 Nasal Cannula 2.00 07/24/20 21:02 75 16 140/80 (100) 97 Nasal Cannula 2.00 07/24/20 20:00 97 Nasal Cannula 2.00 07/24/20 20:00 81 14 140/70 (93) 95 Nasal Cannula 2.00 07/24/20 19:00 37.1 82 22 158/104 (122) 97 Nasal Cannula 2.00 07/24/20 19:00 85 07/24/20 18:30 96 Nasal Cannula 1.50 07/24/20 18:00 75 15 148/90 (109) 94 Room Air 07/24/20 17:00 82 18 150/77 (101) 91 Room Air 07/24/20 16:00 73 16 156/80 (105) 91 Room Air 07/24/20 16:00 93 Room Air 07/24/20 15:00 69 17 154/81 (105) 91 Room Air 07/24/20 14:00 68 16 132/75 (94) 93 Room Air I & O 07/25/20 07:00 Intake Total 2170 ml Output Total 1080 ml Balance 1090 ml Capillary Refill : Less Than 3 Seconds General Appearance: No Apparent Distress, Chronically ill HEENT: PERRL/EOMI, Other (poor dentition) Neck: Normal Inspection Respiratory: Chest Non Tender, No Accessory Muscle Use, No Respiratory Distress, Decreased Breath Sounds (bases) Cardiovascular: Regular Rate, Rhythm, No Murmur Peripheral Pulses: 2+ Radial Pulses (R), 2+ Radial Pulses (L) Gastrointestinal: normal bowel sounds, soft; No distended, No guarding, No rebound; tenderness (mild RLQ abdominal tenderness. Nontender RUQ. ), other (SILKE with approximately 50mL serous fluid. Congealed pinkish clot also present in SILKE drain and in tubing. Midline incision intact without drainage or surrounding erythema. [place] in place.) Extremity: Normal Capillary Refill, Pedal Edema (trace bilaterally) Neurologic/Psychiatric: Alert, Oriented x3 Skin: Normal Color, Warm/Dry Lymphatic: No Adenopathy (neck, groin) Results Lab Laboratory Tests 07/25/20 02:55: White Blood Count 10.8, Red Blood Count 4.44, Hemoglobin 13.4, Hematocrit 41, Mean Corpuscular Volume 93, Mean Corpuscular Hemoglobin 30, Mean Corpuscular Hemoglobin Concent 33, Red Cell Distribution Width 16.1H, Platelet Count 282, Mean Platelet Volume 9.0, Immature Granulocyte % (Auto) 2, Neutrophils (%) (Auto) 77H, Lymphocytes (%) (Auto) 11L, Monocytes (%) (Auto) 9, Eosinophils (%) (Auto) 1, Basophils (%) (Auto) 0, Neutrophils # (Auto) 8.3H, Lymphocytes # (Auto) 1.2, Monocytes # (Auto) 0.9, Eosinophils # (Auto) 0.1, Basophils # (Auto) 0.0, Immature Granulocyte # (Auto) 0.3H, Sodium Level 137, Potassium Level 3.9, Chloride Level 100, Carbon Dioxide Level 23, Anion Gap 14, Blood Urea Nitrogen 5L, Creatinine 0.55L, Estimat Glomerular Filtration Rate > 60, BUN/Creatinine Ratio 9, Glucose Level 66L, Calcium Level 8.5, Phosphorus Level 2.6, Magnesium Level 1.6 Microbiology 07/24/20 MRSA Screen - Final, Complete MRSA not isolated 07/22/20 Blood Culture - Preliminary, Resulted No growth Assessment/Plan Assessment/Plan Assessment/Plan Gastric Perforation -s/p ex lap with oversew of Gastric perforation and modified Burton Patch, IV fluids, IV ABX, pain control, anti-emetics as needed. NG tube removed, diet progressed to solids. No nausea, passed multiple bms including solids. taken to ICU 2 nights ago for an atrial tachycardia, resolved with cardizem drip, now stable and on PO diltiazem. working with social workers to set up home health due to mobility issues associated with recently diagnosed malignancy Lung CA with mets to brain - chronic cough, sputum production, coarse breath sounds. No acute change on CXR today compared to yesterday. encouraged IS use, working with PT, walking BETTY. Seizure-like episode several days ago, is on Keppra. Asyptomatic since. Bacteremia - on Vancomycin Clinical Quality Measures DVT/VTE Risk/Contraindication: Contraindications-Pharm: Other *list below* Other: perforated ulcer ELIZ DAVIS DO 07/25/20 1616: Subjective Time Seen by a Provider: 13:43 Subjective/Events-last exam Pt seen and examined, sitting in bed and eating without difficulty. Review of Systems General: No Chills, No Night Sweats; Fatigue Pulmonary: No Dyspnea, No Cough Cardiovascular: No: Chest Pain, Palpitations Gastrointestinal: No: Nausea, Vomiting, Abdominal Pain Objective Exam General Appearance: No Apparent Distress, Chronically ill Respiratory: Chest Non Tender, No Accessory Muscle Use, No Respiratory Distress, Decreased Breath Sounds (bases) Cardiovascular: Regular Rate, Rhythm, No Murmur Gastrointestinal: soft, distended; No guarding, No rebound; tenderness (mild RLQ abdominal tenderness. Nontender RUQ. ), other (SILKE with approximately 50mL serous fluid. Congealed pinkish clot also present in SILKE drain and in tubing. Midline incision intact without drainage or surrounding erythema. [place] in place.) Assessment/Plan Assessment/Plan Assessment/Plan Gastric Perforation -s/p ex lap with oversew of Gastric perforation and modified Burton Patch, IV fluids, IV ABX, pain control, anti-emetics as needed. NG tube removed, diet progressed to solids. No nausea, passed multiple bms including solids. taken to ICU 2 nights ago for an atrial tachycardia, resolved with cardizem drip, now stable and on PO diltiazem. working with social workers to set up home health due to mobility issues associated with recently diagnosed malignancy Lung CA with mets to brain - chronic cough, sputum production, coarse breath sounds. No acute change on CXR today compared to yesterday. encouraged IS use, working with PT, walking BETTY. Seizure-like episode several days ago, is on Keppra. Asyptomatic since. Bacteremia - repeat cultures are negtive, will stop Vanc Supervisory-Addendum Brief Verification & Attestation Participated in pt care: history, MDM, physical Personally performed: exam, history, MDM Care discussed with: Medical Student Procedures: n/a Verification and Attestation of Medical Student E/M Service A medical student performed and documented this service. I then reviewed and verified all information documented by the medical student and made modifications to such information, when appropriate. I personally performed a physical exam, medical decision making and then discussed any differences between the notes and made revisions as necessary to create one note. Eliz Davis , 07/25/20 , 16:16 [employer] STUDENT Jul 25, 2020 13:40 ELIZ DAVIS DO Jul 25, 2020 16:16
--- NOTE | 2020-07-25 14:36 | Progress Note ---
Subjective Subjective/Events-last exam Afebrile, he is anxious to go home as soon as possible, wants to go home with home health and states he does not want to go to custodial. Focused Exam Lactate Level 07/23/20 21:15: Lactic Acid Level 0.74 Objective Exam Last Set of Vital Signs Vital Signs Date Time Temp Pulse Resp B/P (MAP) Pulse Ox O2 Delivery O2 Flow Rate FiO2 07/25/20 13:00 75 13 117/82 (94) 85 Nasal Cannula 2.00 07/25/20 12:00 36.4 Capillary Refill : Less Than 3 Seconds I&O Intake and Output 07/24/20 23:59 Intake Total 3005 ml Output Total 1720 ml Balance 1285 ml Intake Oral 1495 ml IV Total 1510 ml Output Urine Total 1600 ml Drainage Total 120 ml # Voids 5 General: Alert, No Acute Distress Lungs: Clear to Auscultation, Normal Air Movement Heart: Regular Rate, No Murmurs Extremities: No Edema Psych/Mental Status: Mood NL Results/Procedures Lab Laboratory Tests 07/25/20 02:55: White Blood Count 10.8, Red Blood Count 4.44, Hemoglobin 13.4, Hematocrit 41, Mean Corpuscular Volume 93, Mean Corpuscular Hemoglobin 30, Mean Corpuscular Hemoglobin Concent 33, Red Cell Distribution Width 16.1H, Platelet Count 282, Mean Platelet Volume 9.0, Immature Granulocyte % (Auto) 2, Neutrophils (%) (Auto) 77H, Lymphocytes (%) (Auto) 11L, Monocytes (%) (Auto) 9, Eosinophils (%) (Auto) 1, Basophils (%) (Auto) 0, Neutrophils # (Auto) 8.3H, Lymphocytes # (Auto) 1.2, Monocytes # (Auto) 0.9, Eosinophils # (Auto) 0.1, Basophils # (Auto) 0.0, Immature Granulocyte # (Auto) 0.3H, Sodium Level 137, Potassium Level 3.9, Chloride Level 100, Carbon Dioxide Level 23, Anion Gap 14, Blood Urea Nitrogen 5L, Creatinine 0.55L, Estimat Glomerular Filtration Rate > 60, BUN/Creatinine Ratio 9, Glucose Level 66L, Calcium Level 8.5, Phosphorus Level 2.6, Magnesium Level 1.6 Microbiology 07/24/20 MRSA Screen - Final, Complete MRSA not isolated 07/22/20 Blood Culture - Preliminary, Resulted No growth Radiology Date of Exam:07/18/20 CT ABDOMEN/PELVIS WO PROCEDURE: CT abdomen and pelvis without contrast. TECHNIQUE: Multiple contiguous axial images were obtained through the abdomen and pelvis without the use of intravenous contrast. Auto Exposure Controls were utilized during the CT exam to meet ALARA standards for radiation dose reduction. INDICATION: Severe abdominal pain. Concern for free intraperitoneal air. COMPARISON: Chest radiograph 07/18/2020. FINDINGS: Mass in the anterior right lung base measuring up to 5.1 cm. There is also diffuse airspace consolidation in the lung bases. Moderate amount of free intraperitoneal air under the diaphragm anteriorly. No focal bowel perforation is identified. No free fluid. No evidence of bowel obstruction. The liver, gallbladder, pancreas, spleen, adrenals, kidneys, collecting systems and bladder are negative. No evidence of appendicitis. No lymphadenopathy. No acute osseous findings. IMPRESSION: 1. Moderate amount of free intraperitoneal air primarily layering around the diaphragm and stomach. No discrete bowel perforation is identified. This air seems to be localized primarily about the stomach which may be the site of hollow viscus perforation. 2. Mass in the right lung base measuring up to 5.1 cm. There is also additional interstitial and airspace opacities in the lung base which could represent pneumonitis versus atelectasis. Findings discussed with Dr. Armen Hoffmann at 6:40 AM on 07/18/2020. Dictated by: Dictated on workstation # [id number] Dict: 07/18/20 0630 Trans: 07/18/20 0837 SRAVANI [id number] Interpreted by: HANNAH MEREDITH MD Electronically signed by: HANNAH MEREDITH MD 07/18/20 0837 Assessment/Plan Assessment/Plan (1) Perforated ulcer Status: Acute Assessment & Plan: s/p patch done by Dr. Sow, tolerating diet. On IV PPI still. (2) Atrial fibrillation with rapid ventricular response Assessment & Plan: Cardiology consulted, appreciate recommendations, on diltiazem, started Eliquis, hemoglobin stable. (3) Left-sided weakness Status: Chronic Assessment & Plan: Worsened since stopping decadron due to ulcer. (4) Lung cancer metastatic to brain Status: Chronic Assessment & Plan: On decadron prior to admission, held due to perforated ulcer. Pt with very limited mobility at this time. Will discuss with family goals and level of mobility to determine d/c plan. (5) Frequent falls Status: Acute (6) Positive blood culture Status: Acute Assessment & Plan: Staph epi from two different sites. On vancomycin. (7) DVT prophylaxis Status: Acute Assessment & Plan: On Eliquis Clinical Quality Measures DVT/VTE Risk/Contraindication: Contraindications-Pharm: Other *list below* Other: perforated ulcer TYLER SONG MD Jul 25, 2020 14:36
[2020-07-25] MEDS: FLUCONAZOLE 200 MG/100 ML 100 ML IV SCH (19:55)
[2020-07-26 00:19] VITALS: BP 153/83
[2020-07-26] MEDS: RT-ALBUTEROL/IPRATROPIUM 3 ML (DUONEB) VIAL INH SCH ×6 (02:41→22:27)
[2020-07-26] MEDS: morphine INJ 4 MG/ML 1 ML (VIAL/SYRINGE) IVP PRN (03:26)
[2020-07-26 04:20] VITALS: BP 129/76
[2020-07-26 05:52] LABS: HEMOGLOBIN 13.3 g/dL (13.3-17.7); MEAN PLATELET VOLUME 9.4 fL (9.0-12.2); WHITE BLOOD COUNT 11.2 10^3/uL (4.3-11.0)
[2020-07-26 06:05] LABS: BUN/CREATININE RATIO 9; CALCIUM 8.8 MG/DL (8.5-10.1); CARBON DIOXIDE 22 MMOL/L (21-32); CHLORIDE 101 MMOL/L (98-107); CREATININE SERUM 0.56 MG/DL (0.60-1.30); GFR ESTIMATED > 60; GLUCOSE 72 MG/DL (70-105); POTASSIUM 3.8 MMOL/L (3.6-5.0); SODIUM 138 MMOL/L (135-145)
--- NOTE | 2020-07-26 07:27 | Progress Note - Surgery ---
ENMA H[employer] MED STUDENT 07/26/20 0727: Subjective Date Seen by a Provider: Jul 26, 2020 Time Seen by a Provider: 06:58 Subjective/Events-last exam Dewayne Jara reports no fever or chills. He says he is "doing fine", pain is not worse than yesterday. Don says he wants to get healthcare set up out of hospital. Focused Exam Lactate Level 07/23/20 21:15: Lactic Acid Level 0.74 Objective Exam Vital Signs Date Time Temp Pulse Resp B/P (MAP) Pulse Ox O2 Delivery O2 Flow Rate FiO2 07/26/20 06:27 99 Nasal Cannula 1.50 07/26/20 04:20 37.0 67 24 129/76 (93) 98 Nasal Cannula 2.00 07/26/20 00:19 36.9 69 20 153/83 (106) 98 Nasal Cannula 2.00 07/25/20 21:00 Nasal Cannula 2.00 07/25/20 20:00 36.6 66 14 151/70 (97) 96 Nasal Cannula 2.00 07/25/20 18:26 97 Nasal Cannula 1.50 07/25/20 16:07 37.0 73 14 139/65 (89) 97 Nasal Cannula 2.00 07/25/20 15:00 67 11 117/62 (80) 99 Nasal Cannula 2.00 07/25/20 14:32 99 Nasal Cannula 1.50 07/25/20 14:00 72 8 133/76 (95) Nasal Cannula 2.00 07/25/20 13:00 75 13 117/82 (94) 85 Nasal Cannula 2.00 07/25/20 12:51 69 07/25/20 12:00 66 12 136/74 (94) Nasal Cannula 2.00 07/25/20 12:00 36.4 07/25/20 12:00 97 Nasal Cannula 2.00 07/25/20 11:00 68 13 112/71 (85) 97 Nasal Cannula 2.00 07/25/20 10:00 72 12 146/81 (102) 96 Nasal Cannula 2.00 07/25/20 09:00 64 10 139/71 (93) 98 Nasal Cannula 2.00 07/25/20 08:00 71 11 148/75 (99) 97 Nasal Cannula 2.00 07/25/20 08:00 97 Nasal Cannula 2.00 07/25/20 07:29 37.2 I & O 07/26/20 07:00 Intake Total 1170 ml Output Total 765 ml Balance 405 ml Capillary Refill : Less Than 3 Seconds General Appearance: No Apparent Distress, Chronically ill HEENT: PERRL/EOMI, Other (poor dentition) Neck: Normal Inspection Respiratory: Chest Non Tender, No Accessory Muscle Use, No Respiratory Distress, Decreased Breath Sounds (at bases) Cardiovascular: Regular Rate, Rhythm, No Murmur Peripheral Pulses: 2+ Radial Pulses (R), 2+ Radial Pulses (L) Gastrointestinal: soft, distended; No guarding, No rebound; tenderness (mild RLQ), other (SILKE drain with approximately 5ml serous fluid. Midline incision intact without drainage or surrounding erythema. [place] in place.) Extremity: Normal Capillary Refill, Pedal Edema (trace bilaterally) Neurologic/Psychiatric: Alert, Oriented x3 Skin: Normal Color, Warm/Dry Lymphatic: No Adenopathy (neck, groin) Results Lab Laboratory Tests 07/26/20 05:25: White Blood Count 11.2H, Red Blood Count 4.42, Hemoglobin 13.3, Hematocrit 41, Mean Corpuscular Volume 93, Mean Corpuscular Hemoglobin 30, Mean Corpuscular Hemoglobin Concent 32, Red Cell Distribution Width 16.1H, Platelet Count 310, Mean Platelet Volume 9.4, Sodium Level 138, Potassium Level 3.8, Chloride Level 101, Carbon Dioxide Level 22, Anion Gap 15H, Blood Urea Nitrogen 5L, Creatinine 0.56L, Estimat Glomerular Filtration Rate > 60, BUN/Creatinine Ratio 9, Glucose Level 72, Calcium Level 8.8 Microbiology 07/24/20 MRSA Screen - Final, Complete MRSA not isolated 07/22/20 Blood Culture - Preliminary, Resulted No growth Assessment/Plan Assessment/Plan Assessment/Plan Gastric Perforation -s/p ex lap with oversew of Gastric perforation and modified Burton Patch, IV fluids, IV ABX, pain control, anti-emetics as needed. NG tube removed, diet progressed to solids. No nausea, passed multiple bms including solids several days ago. has not passed bm for a few days but is passing gas. Will monitor. Taken to ICU 3 nights ago for an atrial tachycardia, resolved with cardizem drip, now stable on floor and on PO diltiazem. Per social science analyst notes [facility] has accepted the patient and vice versa. -Will make sure social science analyst re-discusses this with the patient as he expressed that he wanted to get his post-hospital care figured out. Lung CA with mets to brain - chronic cough, sputum production, coarse breath sounds. No acute change on CXR today compared to yesterday. encouraged IS use, working with PT, walking BETTY. Seizure-like episode several days ago, is on Keppra. No issues with this since. Clinical Quality Measures DVT/VTE Risk/Contraindication: Contraindications-Pharm: Other *list below* Other: perforated ulcer ELIZ DAVIS DO 07/26/20 0905: Subjective Time Seen by a Provider: 07:15 Subjective/Events-last exam Pt seen and examined, no new complaints and would like to get out of hospital. Review of Systems General: Fatigue, Malaise Pulmonary: No Dyspnea Cardiovascular: No: Chest Pain, Palpitations Gastrointestinal: Abdominal Pain (minimal); No: Nausea, Vomiting Objective Exam General Appearance: No Apparent Distress, Chronically ill Respiratory: Chest Non Tender, No Accessory Muscle Use, No Respiratory Distress, Decreased Breath Sounds (at bases) Cardiovascular: Regular Rate, Rhythm, No Murmur Gastrointestinal: soft, distended; No guarding, No rebound; tenderness (mild RLQ), other (SILKE drain with approximately 5ml serous fluid. Midline incision intact without drainage or surrounding erythema. [place] in place.) Assessment/Plan Assessment/Plan Assessment/Plan Gastric Perforation -s/p ex lap with oversew of Gastric perforation and modified Burton Patch, IV fluids, IV ABX, pain control, anti-emetics as needed. NG tube removed, diet progressed to solids. No nausea, passed multiple bms including solids several days ago. has not passed bm for a few days but is passing gas. Ok to leave from surgery standpoint. Per social science analyst notes [facility] has accepted the patient and vice versa. -Will make sure social science analyst re-discusses this with the patient as he expressed that he wanted to get his post-hospital care figured out. Lung CA with mets to brain - chronic cough, sputum production, coarse breath sounds. No acute change on CXR today compared to yesterday. encouraged IS use, working with PT, walking BETTY. Seizure-like episode several days ago, is on Keppra. No issues with this since. Supervisory-Addendum Brief Verification & Attestation Participated in pt care: history, MDM, physical Personally performed: exam, history, MDM Care discussed with: Medical Student Procedures: n/a Verification and Attestation of Medical Student E/M Service A medical student performed and documented this service. I then reviewed and verified all information documented by the medical student and made modifications to such information, when appropriate. I personally performed a physical exam, medical decision making and then discussed any differences betwe en the notes and made revisions as necessary to create one note. Eliz Davis , 07/26/20 , 09:05 EN[employer] STUDENT Jul 26, 2020 07:27 ELIZ DAVIS DO Jul 26, 2020 09:05
[2020-07-26 07:49] VITALS: BP 143/70
[2020-07-26] MEDS: APIXABAN 5 MG (ELIQUIS) TABLET PO SCH ×2 (08:46→20:10)
[2020-07-26] MEDS: PANTOPRAZOLE 40 MG (PROTONIX) VIAL IVP SCH (08:46)
--- NOTE | 2020-07-26 10:05 | Progress Note - Cardiology ---
Cardiology SOAP Progress Note Subjective: Lying in bed Denies SOB, CP or palpitations C/O abd pain, which is better than before Objective: I&O/Vital Signs 07/26/20 07/26/20 07/26/20 07/26/20 00:19 04:20 06:27 07:49 Temp 36.9 37.0 37.0 Pulse 69 67 71 Resp 20 24 20 B/P (MAP) 153/83 (106) 129/76 (93) 143/70 (94) Pulse Ox 98 98 99 98 O2 Delivery Nasal Cannula Nasal Cannula Nasal Cannula Nasal Cannula O2 Flow Rate 2.00 2.00 1.50 2.00 07/26/20 00:00 Intake Total 920 ml Output Total 340 ml Balance 580 ml Constitutional: AAO x 3, well-developed, well-nourished Respiratory: other Cardiovascular: regular rate-rhythm, S1 and S2, systolic murmur Gastrointestional: soft, audible bowel sounds Extremities: No clubbing, No cyanosis, No significant edema Neurologic/Psychiatric: oriented x 3, other Skin: No rash on exposed areas, No ulcerations on exposed areas Results/Procedures: Labs Laboratory Tests 07/26/20 05:25: White Blood Count 11.2H, Red Blood Count 4.42, Hemoglobin 13.3, Hematocrit 41, Mean Corpuscular Volume 93, Mean Corpuscular Hemoglobin 30, Mean Corpuscular Hemoglobin Concent 32, Red Cell Distribution Width 16.1H, Platelet Count 310, Mean Platelet Volume 9.4, Sodium Level 138, Potassium Level 3.8, Chloride Level 101, Carbon Dioxide Level 22, Anion Gap 15H, Blood Urea Nitrogen 5L, Creatinine 0.56L, Estimat Glomerular Filtration Rate > 60, BUN/Creatinine Ratio 9, Glucose Level 72, Calcium Level 8.8 Microbiology 07/24/20 MRSA Screen - Final, Complete MRSA not isolated 07/22/20 Blood Culture - Preliminary, Resulted No growth Laboratory Tests 07/25/20 02:55 07/26/20 05:25 A/P: Assessment: PAF OAC with Eliquis Echo on 07/25/20: LVEF 50-55%, PASP 50-55 mmHg S/p patch repair for gastric perf on 07/18/20, managed by the Surg Svce H/o R-sided brain mass and h/o seizure due to that, managed by Dr Torrez Electrolyte abnormalities on 07/23/20, now corrected Plan: * Continue long-acting dilt * Continue oral anticoag with Eliquis * Monitor labs * Continue PT GORDO ROTHMAN Jul 26, 2020 10:05
--- NOTE | 2020-07-26 10:56 | Physical Therapy Daily Note ---
PT Daily Note-Current Subjective Patient agrees to PT. Patient is very emotional wanting to go home and see his horses. Mental Status Patient Orientation: Normal For Age Attachments: Oxygen, IV Transfers SCALE: Activities may be completed with or without assistive devices. 3-Oahoctsqdm-dtussrd completes the activity by him/herself with no assistance from a helper. 5-Set-up or Clean-up Assistance-helper sets up or cleans up; patient completes activity. [place] assists only prior to or following the activity. 4-Supervision or Touching Assistance-helper provides verbal cues and/or touching/steadying and/or contact guard assistance as patient completes activity. Assistance may be provided throughout the activity or intermittently. 3-Partial/Moderate Assistance-helper does LESS THAN HALF the effort. [place] lifts, holds or supports trunk or limbs, but provides less than half the effort. 2-Substantial/Maximal Assistance-helper does MORE THAN HALF the effort. [place] lifts or holds trunk or limbs and provides more than half the effort. 7-Talxeymxq-tebvmq does ALL the effort. Patient does none of the effort to complete the activity. Or, the assistance of 2 or more helpers is required for the patient to complete the activity. If activity was not attempted, code reason: 7-Patient Refused. 9-Not Applicable-not attempted and the patient did not perform the activity before the current illness, exacerbation or injury. 10-Not Attempted due to Environmental Limitations-(lack of equipment, weather restraints, etc.). 88-Not Attempted due to Medical Conditions or Safety Concerns. Roll Left & Right (QC): 1 (x 2) Sit to Lying (QC): 1 (x 2) Lying to Sitting/Side of Bed(Q: 1 (x 2) completely flaccid left LE and UE/sat EOB 5 min dependent assist x 2 to maintain Exercises Supine Ex: Ankle pumps, Heel Slides, Straight leg raise, Hip abd/add Supine Reps: 12 (PROM left LE) Assessment Patient is complete dependent with all bed mobility. Not safe for OOB activity due to left side flaccid and severe left lean. PT Long-Term Goals Long-Term Goals PT Verification Clerk Goals Time Frame: August 06, 2020 Roll Left & Right (QC): 3 Sit to Lying (QC): 3 Lying-Sitting on Side/Bed(QC): 3 Sit to Stand (QC): 3 Chair/Ohy-sj-Dklga Xfer(QC): 3 Toilet Transfer (QC): 3 PT Plan Treatment/Plan Treatment Plan: Continue Plan of Care Treatment Plan: Bed Mobility, Education, Functional Activity Oli, Functional Strength, Gait, Safety, Therapeutic Exercise, Transfers Treatment Duration: August 06, 2020 Frequency: 6 times per week Estimated Hrs Per Day: .25 hour per day Patient and/or Family Agrees t: Yes Time/GCodes Time In: 1015 Time Out: 1025 Total Billed Treatment Time: 10 Total Billed Treatment 1 visit EX 10 min DRU GOLDEN PT Jul 26, 2020 10:55
[2020-07-26 11:45] VITALS: BP 128/66
[2020-07-26] MEDS: ACETAMINOPHEN 500 MG TAB (TYLENOL) PO PRN (12:43)
[2020-07-26 16:00] VITALS: BP 137/96
--- NOTE | 2020-07-26 16:38 | Progress Note - Cardiology ---
Cardiology SOAP Progress Note Subjective: Gen malaise, but improving No cp or palp or syncope Poor stamina, but improving No shortness of breath at rest No n/v/d Objective: I&O/Vital Signs 07/26/20 07/26/20 07/26/20 07/26/20 06:27 07:49 09:00 10:04 Temp 37.0 Pulse 71 Resp 20 B/P (MAP) 143/70 (94) Pulse Ox 99 98 98 O2 Delivery Nasal Cannula Nasal Cannula Nasal Cannula Nasal Cannula O2 Flow Rate 1.50 2.00 2.00 1.00 07/26/20 07/26/20 07/26/20 07/26/20 10:08 11:45 14:25 16:00 Temp 37.0 36.8 Pulse 64 72 Resp 20 22 B/P (MAP) 128/66 (86) 137/96 (110) Pulse Ox 94 99 98 91 86 O2 Delivery Nasal Cannula Nasal Cannula Nasal Cannula O2 Flow Rate 1.00 1.00 1.00 1.00 07/26/20 00:00 Intake Total 920 ml Output Total 340 ml Balance 580 ml Constitutional: AAO x 3, well-developed, well-nourished Respiratory: other Cardiovascular: regular rate-rhythm, S1 and S2, systolic murmur Gastrointestional: soft, audible bowel sounds Extremities: No clubbing, No cyanosis, No significant edema Neurologic/Psychiatric: oriented x 3, other Skin: No rash on exposed areas, No ulcerations on exposed areas Results/Procedures: Labs Laboratory Tests 07/26/20 05:25: White Blood Count 11.2H, Red Blood Count 4.42, Hemoglobin 13.3, Hematocrit 41, Mean Corpuscular Volume 93, Mean Corpuscular Hemoglobin 30, Mean Corpuscular Hemoglobin Concent 32, Red Cell Distribution Width 16.1H, Platelet Count 310, Mean Platelet Volume 9.4, Sodium Level 138, Potassium Level 3.8, Chloride Level 101, Carbon Dioxide Level 22, Anion Gap 15H, Blood Urea Nitrogen 5L, Creatinine 0.56L, Estimat Glomerular Filtration Rate > 60, BUN/Creatinine Ratio 9, Glucose Level 72, Calcium Level 8.8 Microbiology 07/24/20 MRSA Screen - Final, Complete MRSA not isolated 07/22/20 Blood Culture - Preliminary, Resulted No growth Laboratory Tests 07/25/20 02:55 07/26/20 05:25 A/P: Assessment: PAF OAC with Eliquis Echo on 07/25/20: LVEF 50-55%, PASP 50-55 mmHg S/p patch repair for gastric perf on 07/18/20, managed by the Surg Svce H/o R-sided brain mass and h/o seizure due to that, managed by Dr Torrez Electrolyte abnormalities on 07/23/20, now corrected Plan: * Continue long-acting dilt * Continue oral anticoag with Eliquis * Monitor labs * Continue PT LASHAY HAYDEN MD FACP FAC CCDS Jul 26, 2020 16:38
--- NOTE | 2020-07-26 19:03 | Progress Note ---
Subjective Subjective/Events-last exam Afebrile, feels better today than yesterday. Focused Exam Lactate Level 07/23/20 21:15: Lactic Acid Level 0.74 Objective Exam Last Set of Vital Signs Vital Signs Date Time Temp Pulse Resp B/P (MAP) Pulse Ox O2 Delivery O2 Flow Rate FiO2 07/26/20 16:00 36.8 72 22 137/96 (110) 91 Nasal Cannula 1.00 Capillary Refill : Less Than 3 Seconds I&O Intake and Output 07/26/20 00:00 Intake Total 2085 ml Output Total 1075 ml Balance 1010 ml Intake Oral 1160 ml IV Total 925 ml Output Urine Total 945 ml Drainage Total 130 ml # Urine Diapers 2 General: Alert Lungs: Clear to Auscultation Heart: Regular Rate Extremities: No Edema Neuro: Normal Speech Results/Procedures Lab Laboratory Tests 07/26/20 05:25: White Blood Count 11.2H, Red Blood Count 4.42, Hemoglobin 13.3, Hematocrit 41, Mean Corpuscular Volume 93, Mean Corpuscular Hemoglobin 30, Mean Corpuscular Hemoglobin Concent 32, Red Cell Distribution Width 16.1H, Platelet Count 310, Mean Platelet Volume 9.4, Sodium Level 138, Potassium Level 3.8, Chloride Level 101, Carbon Dioxide Level 22, Anion Gap 15H, Blood Urea Nitrogen 5L, Creatinine 0.56L, Estimat Glomerular Filtration Rate > 60, BUN/Creatinine Ratio 9, Glucose Level 72, Calcium Level 8.8 Microbiology 07/24/20 MRSA Screen - Final, Complete MRSA not isolated 07/22/20 Blood Culture - Preliminary, Resulted No growth Radiology Date of Exam:07/18/20 CT ABDOMEN/PELVIS WO PROCEDURE: CT abdomen and pelvis without contrast. TECHNIQUE: Multiple contiguous axial images were obtained through the abdomen and pelvis without the use of intravenous contrast. Auto Exposure Controls were utilized during the CT exam to meet ALARA standards for radiation dose reduction. INDICATION: Severe abdominal pain. Concern for free intraperitoneal air. COMPARISON: Chest radiograph 07/18/2020. FINDINGS: Mass in the anterior right lung base measuring up to 5.1 cm. There is also diffuse airspace consolidation in the lung bases. Moderate amount of free intraperitoneal air under the diaphragm anteriorly. No focal bowel perforation is identified. No free fluid. No evidence of bowel obstruction. The liver, gallbladder, pancreas, spleen, adrenals, kidneys, collecting systems and bladder are negative. No evidence of appendicitis. No lymphadenopathy. No acute osseous findings. IMPRESSION: 1. Moderate amount of free intraperitoneal air primarily layering around the diaphragm and stomach. No discrete bowel perforation is identified. This air seems to be localized primarily about the stomach which may be the site of hollow viscus perforation. 2. Mass in the right lung base measuring up to 5.1 cm. There is also additional interstitial and airspace opacities in the lung base which could represent pneumonitis versus atelectasis. Findings discussed with Dr. Armen Hoffmann at 6:40 AM on 07/18/2020. Dictated by: Dictated on workstation # [id number] Dict: 07/18/20 0630 Trans: 07/18/20 0837 [id number] Interpreted by: HANNAH MEREDITH MD Electronically signed by: HANNAH MEREDITH MD 07/18/20 0837 Assessment/Plan Assessment/Plan (1) Perforated ulcer Status: Acute Assessment & Plan: s/p patch done by Dr. Sow, tolerating diet. IV PPI changed to oral. (2) Atrial fibrillation with rapid ventricular response Assessment & Plan: Cardiology consulted, appreciate recommendations, on diltiazem, started Eliquis, hemoglobin stable. (3) Left-sided weakness Status: Chronic Assessment & Plan: Worsened since stopping decadron due to ulcer. (4) Lung cancer metastatic to brain Status: Chronic Assessment & Plan: On decadron prior to admission, held due to perforated ulcer. Pt with very limited mobility at this time. Will discuss with family goals and level of mobility to determine d/c plan. 07/26 plan was for retirement, but due to continued need for radiation, Dr. Webb consulted and may need swing bed status to complete radiation. (5) Frequent falls Status: Acute (6) Positive blood culture Status: Acute Assessment & Plan: Staph epi from two different sites. Completed 7 days of vancomycin, 5 days of Zosyn. (7) DVT prophylaxis Status: Acute Assessment & Plan: On Eliquis Clinical Quality Measures DVT/VTE Risk/Contraindication: Contraindications-Pharm: Other *list below* Other: perforated ulcer TYLER SONG MD Jul 26, 2020 19:03
[2020-07-26 20:00] VITALS: BP 135/69
[2020-07-26] MEDS: PANTOPRAZOLE 40 MG (PROTONIX) TAB PO SCH (20:10)
[2020-07-26] MEDS: FLUCONAZOLE 200 MG/100 ML 100 ML IV SCH (20:11)
[2020-07-27 00:17] VITALS: BP 147/76
[2020-07-27] MEDS: RT-ALBUTEROL/IPRATROPIUM 3 ML (DUONEB) VIAL INH SCH ×3 (03:01→10:17)
[2020-07-27 04:01] VITALS: BP 154/78
[2020-07-27 04:36] LABS: HEMOGLOBIN 13.7 g/dL (13.3-17.7); MEAN PLATELET VOLUME 9.2 fL (9.0-12.2); WHITE BLOOD COUNT 12.2 10^3/uL (4.3-11.0)
[2020-07-27 04:53] LABS: BUN/CREATININE RATIO 8; CALCIUM 8.9 MG/DL (8.5-10.1); CARBON DIOXIDE 25 MMOL/L (21-32); CHLORIDE 100 MMOL/L (98-107); CREATININE SERUM 0.59 MG/DL (0.60-1.30); GFR ESTIMATED > 60; GLUCOSE 91 MG/DL (70-105); POTASSIUM 3.5 MMOL/L (3.6-5.0); SODIUM 138 MMOL/L (135-145)
[2020-07-27 07:20] VITALS: BP 161/87
--- NOTE | 2020-07-27 07:45 | Progress Note - Surgery ---
ENMA HULL MED STUDENT 07/27/20 0745: Subjective Date Seen by a Provider: Jul 27, 2020 Time Seen by a Provider: 06:50 Subjective/Events-last exam Dewayne Jara states his abdominal pain is about the same as yesterday. Reports he has not passed bm but is passing gas. States he does not feel bloated. He complains of pain at the left lower back at the upper aspect of his ileum and states this has been causing him the most pain over the last few days. Objective Exam Vital Signs Date Time Temp Pulse Resp B/P (MAP) Pulse Ox O2 Delivery O2 Flow Rate FiO2 07/27/20 06:58 96 Nasal Cannula 1.00 07/27/20 04:01 36.2 76 17 154/78 (103) 96 Nasal Cannula 1.00 07/27/20 03:01 96 Nasal Cannula 2.00 07/27/20 00:17 36.3 73 18 147/76 (99) 97 Nasal Cannula 1.00 07/26/20 20:15 Nasal Cannula 1.00 07/26/20 20:00 36.9 67 14 135/69 (91) 94 Nasal Cannula 1.00 07/26/20 16:00 36.8 72 22 137/96 (110) 91 Nasal Cannula 1.00 07/26/20 14:25 98 Nasal Cannula 1.00 07/26/20 11:45 37.0 64 20 128/66 (86) 99 Nasal Cannula 1.00 07/26/20 10:08 94 1.00 86 07/26/20 10:04 98 Nasal Cannula 1.00 07/26/20 09:00 Nasal Cannula 2.00 07/26/20 07:49 37.0 71 20 143/70 (94) 98 Nasal Cannula 2.00 I & O 07/27/20 07:00 Intake Total 1180 ml Output Total 1155 ml Balance 25 ml Capillary Refill : Less Than 3 Seconds General Appearance: No Apparent Distress, Chronically ill HEENT: PERRL/EOMI, Other (poor dentition) Neck: Normal Inspection Respiratory: Chest Non Tender, No Accessory Muscle Use, No Respiratory Distress, Decreased Breath Sounds (at bases) Cardiovascular: Regular Rate, Rhythm, No Murmur Peripheral Pulses: 2+ Radial Pulses (R), 2+ Radial Pulses (L) Gastrointestinal: soft, distended; No guarding, No rebound; tenderness (mild RLQ), other (SILKE drain with approximately 5ml serous fluid. Midline incision intact without drainage or surrounding erythema. Boby in place.) Extremity: Normal Capillary Refill, Pedal Edema (trace bilaterally), Other (Back: No CVA tenderness bilaterally. Tenderness at the superior aspect of the left ileum. No erythema, ecchymosis, or breaks in the skin on the back. ) Neurologic/Psychiatric: Alert, Oriented x3 Skin: Normal Color, Warm/Dry Lymphatic: No Adenopathy (neck, groin) Results Lab Laboratory Tests 07/27/20 04:06: Glucometer 99 07/27/20 04:20: White Blood Count 12.2H, Red Blood Count 4.54, Hemoglobin 13.7, Hematocrit 42, Mean Corpuscular Volume 92, Mean Corpuscular Hemoglobin 30, Mean Corpuscular Hemoglobin Concent 33, Red Cell Distribution Width 16.1H, Platelet Count 324, Mean Platelet Volume 9.2, Sodium Level 138, Potassium Level 3.5L, Chloride Level 100, Carbon Dioxide Level 25, Anion Gap 13, Blood Urea Nitrogen 5L, Creatinine 0.59L, Estimat Glomerular Filtration Rate > 60, BUN/Creatinine Ratio 8, Glucose Level 91, Calcium Level 8.9 Microbiology 07/24/20 MRSA Screen - Final, Complete MRSA not isolated 07/22/20 Blood Culture - Preliminary, Resulted No growth Assessment/Plan Assessment/Plan Assessment/Plan Gastric Perforation -s/p ex lap with oversew of Gastric perforation and modified Burton Patch, IV fluids, IV ABX, pain control, anti-emetics as needed. NG tube removed, diet progressed to solids. No nausea, passed multiple bms including solids 4 days ago. Has not passed BM since, is still passing gas. Suspect opiates for pain control have contributed to this slowdown. Lung CA with mets to brain - chronic cough, sputum production, coarse breath sounds. encouraged IS use, working with PT. Clinical Quality Measures DVT/VTE Risk/Contraindication: Contraindications-Pharm: Other *list below* Other: perforated ulcer ELIZ DAVIS DO 07/27/20 1519: Subjective Time Seen by a Provider: 13:29 Subjective/Events-last exam Pt seen and examined, states minimal abd pain. Review of Systems General: Fatigue Pulmonary: No Dyspnea, No Cough Cardiovascular: No: Chest Pain, Palpitations Gastrointestinal: Abdominal Pain; No: Nausea, Vomiting Objective Exam General Appearance: No Apparent Distress, Chronically ill HEENT: PERRL/EOMI Respiratory: No Accessory Muscle Use, No Respiratory Distress, Decreased Breath Sounds (at bases) Cardiovascular: Regular Rate, Rhythm, No Murmur Gastrointestinal: soft, distended; No guarding, No rebound; tenderness (mild RLQ), other (SILKE drain with approximately 5ml serous fluid. Midline incision intact without drainage or surrounding erythema. [place] in place.) Assessment/Plan Assessment/Plan Assessment/Plan Constipation - will write for Dulcolax suppository Gastric Perforation -s/p ex lap with oversew of Gastric perforation and modified Burton Patch, IV fluids, IV ABX, pain control, anti-emetics as needed. NG tube removed, diet progressed to solids. No nausea, passed multiple bms including solids 4 days ago. Has not passed BM since, is still passing gas. Suspect opiates for pain control have contributed to this slowdown. Lung CA with mets to brain - chronic cough, sputum production, coarse breath sounds. encouraged IS use, working with PT Supervisory-Addendum Brief Verification & Attestation Participated in pt care: history, MDM, physical Personally performed: exam, history, MDM Care discussed with: Medical Student Procedures: n/a Verification and Attestation of Medical Student E/M Service A medical student performed and documented this service. I then reviewed and verified all information documented by the medical student and made modification s to such information, when appropriate. I personally performed a physical exam, medical decision making and then discussed any differences between the notes and made revisions as necessary to create one note. Eliz Davis , 07/27/20 , 15:18 ENMA HULL MED STUDENT Jul 27, 2020 07:45 ELIZ DAVIS DO Jul 27, 2020 15:19
[2020-07-27] MEDS: ACETAMINOPHEN 500 MG TAB (TYLENOL) PO PRN (08:29)
[2020-07-27] MEDS: PANTOPRAZOLE 40 MG (PROTONIX) TAB PO SCH (08:29)
[2020-07-27] MEDS: APIXABAN 5 MG (ELIQUIS) TABLET PO SCH (08:29)
[2020-07-27] MEDS ORDERED: BISACODYL 10 MG SUPP (DULCOLAX) PR ONE (08:30)
[2020-07-27] MEDS ORDERED: KCL 20 MEQ TAB (K-DUR) PO ONE (09:00)
[2020-07-27] MEDS: morphine INJ 4 MG/ML 1 ML (VIAL/SYRINGE) IVP PRN (10:31)
[2020-07-27 11:13] VITALS: BP 146/80
--- NOTE | 2020-07-27 13:26 | Discharge Summary ---
Discharge Summary Hospital Course Problems/Diagnosis: (1) Perforated ulcer Status: Acute Assessment & Plan: s/p patch done by Dr. Sow, tolerating diet. IV PPI lesly nged to oral. (2) Atrial fibrillation with rapid ventricular response Assessment & Plan: Cardiology consulted, appreciate recommendations, on diltiazem, started Eliquis, hemoglobin stable. (3) Left-sided weakness Status: Chronic Assessment & Plan: Worsened since stopping decadron due to ulcer. (4) Lung cancer metastatic to brain Status: Chronic Assessment & Plan: On decadron prior to admission, held due to perforated ulcer. Pt with very limited mobility at this time. Will discuss with family goals and level of mobility to determine d/c plan. 07/26 plan was for senior living, but due to continued need for radiation, Dr. Webb consulted and may need swing bed status to complete radiation. 07/27 discharged to swing bed status (5) Frequent falls Status: Acute (6) Positive blood culture Status: Acute Assessment & Plan: Staph epi from two different sites. Completed 7 days of vancomycin, 5 days of Zosyn. (7) DVT prophylaxis Status: Acute Assessment & Plan: On [facility] Hospital Course Date of Admission: Jul 18, 2020 at 11:32 Admission Diagnosis : Family Physician/Provider: Yesenia Cotter DO Date of Discharge: 07/27/20 Discharge Diagnosis: See problem list Hospital Course: See problem list Labs and Pending Lab Test: Laboratory Tests 07/27/20 04:06: Glucometer 99 07/27/20 04:20: White Blood Count 12.2H, Red Blood Count 4.54, Hemoglobin 13.7, Hematocrit 42, Mean Corpuscular Volume 92, Mean Corpuscular Hemoglobin 30, Mean Corpuscular Hemoglobin Concent 33, Red Cell Distribution Width 16.1H, Platelet Count 324, Mean Platelet Volume 9.2, Sodium Level 138, Potassium Level 3.5L, Chloride Level 100, Carbon Dioxide Level 25, Anion Gap 13, Blood Urea Nitrogen 5L, Creatinine 0.59L, Estimat Glomerular Filtration Rate > 60, BUN/Creatinine Ratio 8, Glucose Level 91, Calcium Level 8.9 Microbiology 07/24/20 MRSA Screen - Final, Complete MRSA not isolated 07/22/20 Blood Culture - Preliminary, Resulted No growth Home Meds Active Reported Docusate Sodium 100 Mg Tablet 100-200 Mg PO DAILY PRN Proventil Hfa (Albuterol Sulfate) 6.7 Gm Hfa.aer.ad 2 Puff INH Q4- 6H PRN Hydrocodone-Acetamin 5-325 mg (Hydrocodone/Acetaminophen) 1 Each Tablet 1 Ea PO Q6H PRN Dexamethasone 4 Mg Tablet 4 Mg PO Q8H Trazodone HCl 50 Mg Tablet 50 Mg PO HS PRN Ibuprofen 800 Mg Tablet 800 Mg PO Q8H PRN Assessment/Pt DC Instructions Discharged to swing bed status. Discharge Physical Examination Allergies: Coded Allergies: No Known Drug Allergies (Unverified , 05/28/20) General Appearance: No Apparent Distress Respiratory: Lungs Clear, Normal Breath Sounds Cardiovascular: Regular Rate, Rhythm, No Murmur Gastrointestinal: Normal Bowel Sounds, Soft Skin: Normal Color, Warm/Dry Clinical Quality Measures DVT/VTE Risk/Contraindication: Contraindications-Pharm: Other *list below* Other: perforated ulcer TYLER SONG MD Jul 27, 2020 13:26
--- NOTE | 2020-07-27 13:48 | Progress Note - Cardiology ---
Cardiology SOAP Progress Note Subjective: Gen weakness and malaise No cp or palp or syncope No n/v/d Objective: I&O/Vital Signs 07/27/20 07/27/20 07/27/20 07/27/20 03:01 04:01 06:58 07:20 Temp 36.2 36.4 Pulse 76 61 Resp 17 20 B/P (MAP) 154/78 (103) 161/87 (111) Pulse Ox 96 96 96 94 O2 Delivery Nasal Cannula Nasal Cannula Nasal Cannula Nasal Cannula O2 Flow Rate 2.00 1.00 1.00 1.00 07/27/20 07/27/20 07/27/20 07/27/20 08:29 09:22 10:23 11:13 Temp 36.4 36.7 Pulse 80 Resp 18 B/P (MAP) 146/80 (102) Pulse Ox 95 97 O2 Delivery Nasal Cannula Nasal Cannula Nasal Cannula O2 Flow Rate 1.00 1.00 1.00 07/27/20 00:00 Intake Total 1020 ml Output Total 805 ml Balance 215 ml Constitutional: AAO x 3, well-developed, well-nourished Respiratory: other Cardiovascular: regular rate-rhythm, S1 and S2, systolic murmur Gastrointestional: soft, audible bowel sounds Extremities: No clubbing, No cyanosis, No significant edema Neurologic/Psychiatric: oriented x 3, other Skin: No rash on exposed areas, No ulcerations on exposed areas Results/Procedures: Labs Laboratory Tests 07/27/20 04:06: Glucometer 99 07/27/20 04:20: White Blood Count 12.2H, Red Blood Count 4.54, Hemoglobin 13.7, Hematocrit 42, Mean Corpuscular Volume 92, Mean Corpuscular Hemoglobin 30, Mean Corpuscular Hemoglobin Concent 33, Red Cell Distribution Width 16.1H, Platelet Count 324, Mean Platelet Volume 9.2, Sodium Level 138, Potassium Level 3.5L, Chloride Level 100, Carbon Dioxide Level 25, Anion Gap 13, Blood Urea Nitrogen 5L, Creatinine 0.59L, Estimat Glomerular Filtration Rate > 60, BUN/Creatinine Ratio 8, Glucose Level 91, Calcium Level 8.9 Microbiology 07/24/20 MRSA Screen - Final, Complete MRSA not isolated 07/22/20 Blood Culture - Preliminary, Resulted No growth Laboratory Tests 4/27/21 05:25 07/27/20 04:20 A/P: Assessment: PAF OAC with Eliquis Echo on 07/25/20: LVEF 50-55%, PASP 50-55 mmHg S/p patch repair for gastric perf on 07/18/20, managed by the Surg Svce H/o R-sided brain mass and h/o seizure due to that, managed by Dr Torrez Plan: * Continue long-acting dilt * Continue oral anticoag with Eliquis * Monitor labs and correct abnormalities * Continue PT LASHAY HAYDEN MD FACP FAC CCDS Jul 27, 2020 13:48
[2020-07-27] MEDS ORDERED: fluCOnazole (DIFLUCAN) 100 MG TAB PO SCH (21:00)
--- NOTE | 2020-07-28 11:18 | Physician Query Clarification ---
PQ-Further Specificity Admission/Discharge Admission Date: Jul 18, 2020 at 11:32 Discharge Date: Jul 27, 2020 at 13:30 Dr. Bynre, The medical record reflects the following clinical scenario: History/Risk Factors: Gastric ulcer perforation, lung CA w/brain mets, COPD, cardiomyopathy Clinical Findings: T 34.8, P 90, R 20, WBC 11.6, Lactic 1.54, blood cutures - staph epi Treatment: IV Vancomycin, IV Zosyn Question: Can you further specify the bacteremia per the clinical indicators above? Please document a response in the Progress Notes or Discharge Summary. 1. bacteremia meaning sepsis 2. bacteremia only 3. Other, with explanation of the clinical findings. 4. Clinically undetermined, no explanation for the clinical findings. PHYSICIAN RESPONSE Can you specify per above: 2 Please remember a lack of response to the above will prompt a phone page by CDI/Coding staff. In responding to this query, please exercise your independent professional judgment. The purpose of this communication is to more accurately reflect the complexity of your patients condition. The fact that a question is asked does not imply that any particular answer is desired or expected. Thank you for your timely response to this clarification. Requestors name: Corina THIS PHYSICIAN QUERY FORM IS A PERMANENT PART OF THE MEDICAL RECORD CORINA LAZARO Jul 28, 2020 11:18 TYLER BYRNE MD Jul 28, 2020 15:21
--- NOTE | 2020-07-28 15:07 | Physical Therapy Daily Note ---
PT Daily Note-Current Subjective Pain rated 5/10, pt agreeable to PT. Transfers SCALE: Activities may be completed with or without assistive devices. 5-Dyrvqzoztr-pbrgxgd completes the activity by him/herself with no assistance from a helper. 5-Set-up or Clean-up Assistance-helper sets up or cleans up; patient completes activity. Milroy assists only prior to or following the activity. 4-Supervision or Touching Assistance-helper provides verbal cues and/or touching/steadying and/or contact guard assistance as patient completes activity. Assistance may be provided throughout the activity or intermittently. 3-Partial/Moderate Assistance-helper does LESS THAN HALF the effort. Milroy lifts, holds or supports trunk or limbs, but provides less than half the effort. 2-Substantial/Maximal Assistance-helper does MORE THAN HALF the effort. Mil[place] lifts or holds trunk or limbs and provides more than half the effort. 1-Xbtxadkje-dwuqws does ALL the effort. Patient does none of the effort to complete the activity. Or, the assistance of 2 or more helpers is required for the patient to complete the activity. If activity was not attempted, code reason: 7-Patient Refused. 9-Not Applicable-not attempted and the patient did not perform the activity before the current illness, exacerbation or injury. 10-Not Attempted due to Environmental Limitations-(lack of equipment, weather restraints, etc.). 88-Not Attempted due to Medical Conditions or Safety Concerns. Treatments Pt seen for PROM (L) LE and UE 10-15 reps each, all planes in tolerable range. Assessment Current Status: Poor Progress Pt resting in bed with call light in reach and all needs met. Nurse aid present post treatment session. PT Fpc Goals Easter Bunny Goals PT Easter Bunny Goals Time Frame: August 06, 2020 Roll Left & Right (QC): 3 Sit to Lying (QC): 3 Lying-Sitting on Side/Bed(QC): 3 Sit to Stand (QC): 3 Chair/Vet-tu-Ocapu Xfer(QC): 3 Toilet Transfer (QC): 3 PT Plan Treatment/Plan Treatment Plan: Continue Plan of Care Treatment Plan: Bed Mobility, Education, Functional Activity Oli, Functional Strength, Gait, Safety, Therapeutic Exercise, Transfers Treatment Duration: August 06, 2020 Frequency: 6 times per week Estimated Hrs Per Day: .25 hour per day Patient and/or Family Agrees t: Yes Time/GCodes Time In: 1135 Time Out: 1150 Total Billed Treatment Time: 15 Total Billed Treatment 1, ther ex 15' (This note is for 07/27/20) VALERIE JIN CPTA Jul 28, 2020 15:07
== END 2020-07-27 13:30 | disposition swing bed (61) | DRG 326 ==
LOC: EDUNIT# 05:43 → ER 05:44 → SDC 08:14 → 4TH 11:30 → SDC 11:31 → 4TH 11:32 → ICU 07-23 21:30 → 4TH 07-25 15:55
PROVIDERS: ADMIT Surgery; ATTEND Family Medicine
PROC: 0DB60ZX Excision of Stomach, Open Approach, Diagnostic (ICD-10-PCS; 2020-07-18)
PROC: 0DU Gastrointestinal System, Supplement (ICD-10-PCS; principal; 2020-07-18 09:20)
DX: K25.5 Chronic or unspecified gastric ulcer with perforation (principal); J18.9 Pneumonia, unspecified organism; G93.6 Cerebral edema; R78.81 Bacteremia; C34.91 Malignant neoplasm of unspecified part of right bronchus or lung; C79.31 Secondary malignant neoplasm of brain; I42.9 Cardiomyopathy, unspecified; J44.0 Chronic obstructive pulmonary disease with (acute) lower respiratory infection; R56.9 Unspecified convulsions; I48.0 Paroxysmal atrial fibrillation; Z66 Do not resuscitate; I11.0 Hypertensive heart disease with heart failure; I50.9 Heart failure, unspecified; E87.6 Hypokalemia; F17.210 Nicotine dependence, cigarettes, uncomplicated; I25.10 Atherosclerotic heart disease of native coronary artery without angina pectoris; E78.00 Pure hypercholesterolemia, unspecified; E78.5 Hyperlipidemia, unspecified; M19.91 Primary osteoarthritis, unspecified site; F41.9 Anxiety disorder, unspecified; F32.9 Major depressive disorder, single episode, unspecified; K59.03 Drug induced constipation; F10.20 Alcohol dependence, uncomplicated; R29.898 Other symptoms and signs involving the musculoskeletal system; Z79.01 Long term (current) use of anticoagulants; T40.605A Adverse effect of unspecified narcotics, initial encounter
CPT/HCPCS: 36415; 71045; 74176; 74246; 77290; 77295; 77300; 77334; 77470; 80048; 80053; 80202; 82947; 82962; 83605; 83690; 83735; 83880; 84100; 84484; 85007; 85025; 85027; 86850; 86900; 86901; 87040; 87077; 87081; 87186; 88305; 93005; 93306; 94640; 94664; 94760; 94761; 96361; 96365; 96375; 99204

== ENCOUNTER 2020-07-27 11:35 | Inpatient (IN) | payer MEDICARE, MEDICAID ==
[~2020-07-27] VITALS: Ht 172.7 cm; Wt 68.0 kg
[~2020-07-27 11:35] MED LIST: ACHD5005 PO; DEXA4TAB PO; DOCU100T2 PO; IBUP-1780 PO; NICO-685 TD; RT-ALBUINH INH; TRZ50T PO
[2020-07-27] MEDS ORDERED: ONDANSETRON 4 MG/2 ML (SDV) Z0FRAN IVP PRN (13:45)
[2020-07-27] MEDS ORDERED: RT-ALBUTEROL INHALER HFA (VENTOLIN HFA) 18 GM IH PRN (13:45)
--- NOTE | 2020-07-27 14:21 | Physical Therapy Evaluation ---
PT Evaluation-General Medical Diagnosis Admission Date Jul 27, 2020 at 13:38 Medical Diagnosis: perforated ulcer Onset Date: Jul 27, 2020 Therapy Diagnosis Therapy Diagnosis: weakness Precautions Precautions/Isolations: Standard Precautions Referral Physician: Chavez Reason for Referral: Evaluation/Treatment Medical History Pertinent Medical History: Alcoholism, CAD, COPD, HTN, Smoking Additional Medical History Hx of RLL pneumonia, COVID, lung CA with mets to the brain. Current History Pt admitted to [facility] 07/18/20 with complaints of abdominal pain. Found to have perforated ulcer. Transferred to [facility] for continued medical management and skilled therapy services. Reviewed History: Yes Social History Home: Single Level Current Living Status: Alone Prior Prior Level of Function SCALE: Activities may be completed with or without assistive devices. 7-Zysgpxgdom-txwdsct completes the activity by him/herself with no assistance from a helper. 5-Set-up or Clean-up Assistance-helper sets up or cleans up; patient completes activity. [place] assists only prior to or following the activity. 4-Supervision or Touching Assistance-helper provides verbal cues and/or touching/steadying and/or contact guard assistance as patient completes activity. Assistance may be provided throughout the activity or intermittently. 3-Partial/Moderate Assistance-helper does LESS THAN HALF the effort. [place] lifts, holds or supports trunk or limbs, but provides less than half the effort. 2-Substantial/Maximal Assistance-helper does MORE THAN HALF the effort. [place] lifts or holds trunk or limbs and provides more than half the effort. 8-Nwfjzupgj-uocbgs does ALL the effort. Patient does none of the effort to complete the activity. Or, the assistance of 2 or more helpers is required for the patient to complete the activity. If activity was not attempted, code reason: 7-Patient Refused. 9-Not Applicable-not attempted and the patient did not perform the activity before the current illness, exacerbation or injury. 10-Not Attempted due to Environmental Limitations-(lack of equipment, weather restraints, etc.). 88-Not Attempted due to Medical Conditions or Safety Concerns. Bed Mobility: 6 Transfers (B,C,W/C): 6 Gait: 6 Stairs: 6 Indoor Mobility (Ambulation): Independent Stairs: Independent pt was indep at [facility] PT Evaluation-Current Subjective Pt reports he is having left sided low back pain. Pt agrees to PT. After sitting to edge of bed, pt states, "I can;t do this today, I need to lay back down." Reports to this therapist that his left leg doesn't work. Pain Numeric Pain Scale: 5-Moderate Pain Location: Left Location Body Site: Back Pain Description: Ache, Throbbing Objective Patient Orientation: Person, Confused (slight), Place, Time ROM/Strength ROM Lower Extremities Right side ROM is WNL; left side PROM WNL Strength Lower Extremities Right LE strength is grossly 2/5 throughout; left side, unable to elicit any muscle contraction LE. Integumentary/Posture Integumentary Refer to nursing notes for full assessment. Posture Rounded shoulders and forward head. Neuromuscular (Tone, Coordination, Reflexes) increased tone with movement left LE. Sensory Vision: Functional Hearing: Functional Hand Dominance: Right Sensation Right Lower Extremit: Impaired Sensation Left Lower Extremity: Intact Transfers Roll Left & Right (QC): 1 Sit to Lying (QC): 1 Lying to Sitting/Side of Bed(Q: 1 Sit to Stand (QC): 88 Chair/Hcm-zv-Rdury Xfer(QC): 88 Toilet Transfer (QC): 88 Car Transfer (QC): 88 Pt is dependent of 2 staff to move and position in bed; full assist to move the left side and pt with much difficulty initiating movement or task completion. Pt transferred to sit EOB with assist of 2 (dependent). Pt able to sit EOB x 1 minute with dependent assist to maintain seated position. Pt tends to lean left and is retropulsive. He is able to forward lean with mod assist with heavy cues but tires quickly. Dependent for positioning and scooting in bed. Positioned in slight right sidelying, heels elevated, left UE supported. OT entered as this therapist was exiting, instructed her to set bed alarm once she was finished. Gait Does the Patient Walk?: No and Walking Goal IS indicated Mode of Locomotion: Wheelchair Anticipated Mode of Locomotion: Wheelchair Walk 10 feet (QC): 88 Walk 50 ft with 2 Turns(QC): 88 Walk 150 ft (QC): 88 Walking 10ft/uneven surface-QC: 88 Comments/Gait Description Unsafe to attempt, pt dependent with all mobility and to sit EOb. Wheelchair Training Wheel 50 ft with 2 turns (QC): 7 Wheel 150 ft (QC): 7 Pt declined out of bed transfer/activity. Stairs 1 Step (curb) (QC): 88 4 Steps (QC): 88 12 Steps (QC): 88 unable to safely attempt to stand; therefore unsafe to attempt steps Balance Sitting Static: Poor Sitting Dynamic: Poor Picking up an Object (QC): 88 Treatment Pt transferred to sit EOB with dependent assist. Sat EOB with assist of 2. Post visit, pt returned to bed with dependent assist. Assessment/Needs Pt presents with left side flaccid, pain and decreased ability to perform functional mobility. He also has right sided weakness, balance deficits and impaired task initation. He will benefit from skilled PT services to address functional bed mobility with progression to transfers and gait if able; wc mobi lity may be indicated as well to promote his ability to interact within his environment.. His pain limits mobility at times but he is cooperative and willing to attempt to participate. Rehab Potential: Guarded PT Short Term Goals Short Term Goals Time Frame: August 03, 2020 Roll Left & Right: 3 Sit to lyin Lying to sitting on side of be: 3 PT [employer] Goals Shelter Goals PT [employer] Teacher Goals Time Frame: August 10, 2020 Roll Left & Right (QC): 4 Sit to Lying (QC): 4 Lying-Sitting on Side/Bed(QC): 4 Sit to Stand (QC): 4 Chair/Udc-mz-Zelzx Xfer(QC): 4 Toilet Transfer (QC): 4 Car Transfer (QC): 4 Does the Patient Walk: No and Walking Goal IS indicated Walk 10 feet (QC): 3 Walk 50ft with 2 Turns (QC): 3 Walk 150 ft (QC): 3 Walking 10ft on Uneven Surface: 3 1 Step (curb) (QC): 3 4 Steps (QC): 3 12 Steps (QC): 9 Picking up an Object (QC): 3 Does the Pt use WC or Scooter?: Yes Wheel 50 feet with 2 turns (QC: 3 Wheel 150 feet: 3 PT Plan Problem List Problem List: Activity Tolerance, Functional Strength, Safety, Balance, Gait, Transfer, Bed Mobility Treatment/Plan Treatment Plan: Continue Plan of Care Treatment Plan: Bed Mobility, Education, Functional Activity Oli, Functional Strength, Gait, Safety, Therapeutic Exercise, Transfers Treatment Duration: August 10, 2020 Frequency: 6 times per week Estimated Hrs Per Day: .5 hour per day Patient and/or Family Agrees t: Yes Safety Risks/Education Patient Education: Safety Issues Teaching Recipient: Patient Teaching Methods: Discussion Response to Teaching: Reinforcement Needed Time/GCodes Time In: 1350 Time Out: 1415 Total Billed Treatment Time: 25 Total Billed Treatment visit EVM 10 FA 15 NNAMDI BROWN PT Jul 27, 2020 14:21
--- NOTE | 2020-07-27 14:54 | Occupational Therapy Eval ---
OT Evaluation-General/PLF Medical Diagnosis Admission Date Jul 27, 2020 at 13:38 Medical Diagnosis: perforated ulcer Onset Date: Jul 27, 2020 Therapy Diagnosis Therapy Diagnosis: decreased ADL status, weakness Precautions Precautions/Isolations: Standard Precautions Referral Physician: Chavez Referral Reason: Evaluation/Treatment Medical History Pertinent Medical History: Alcoholism, CAD, COPD, HTN, Smoking Additional Medical History Hx of RLL pneumonia, COVID, lung CA with mets to the brain. Current History Pt admitted to [facility] 07/18/20 with complaints of abdominal pain. Found to have perforated ulcer. Transferred to [facility] for continued medical management and skilled therapy services. Social History Home: Single Level Current Living Status: Alone ADL-Prior Level of Function SCALE: Activities may be completed with or without assistive devices. 8-Hbmraofslp-xflogjl completes the activity by him/herself with no assistance from a helper. 5-Set-up or Clean-up Assistance-helper sets up or cleans up; patient completes activity. [place] assists only prior to or following the activity. 4-Supervision or Touching Assistance-helper provides verbal cues and/or touching/steadying and/or contact guard assistance as patient completes activity. Assistance may be provided throughout the activity or intermittently. 3-Partial/Moderate Assistance-helper does LESS THAN HALF the effort. [place] lifts, holds or supports trunk or limbs, but provides less than half the effort. 2-Substantial/Maximal Assistance-helper does MORE THAN HALF the effort. [place] lifts or holds trunk or limbs and provides more than half the effort. 7-Hjwvvilvt-hrpwjx does ALL the effort. Patient does none of the effort to complete the activity. Or, the assistance of 2 or more helpers is required for the patient to complete the activity. If activity was not attempted, code reason: 7-Patient Refused. 9-Not Applicable-not attempted and the patient did not perform the activity before the current illness, exacerbation or injury. 10-Not Attempted due to Environmental Limitations-(lack of equipment, weather restraints, etc.). 88-Not Attempted due to Medical Conditions or Safety Concerns. ADL PLOF Comments IND at PLOF, no AD/AE Self Care: Independent Functional Cognition: Independent OT Current Status Subjective Pt laying in bed, agreeable to OT evaluation and tx. Reports 7/10 pain Pain Numeric Pain Scale: 7 Location Body Site: Back Mental Status/Objective Attachments: Oxygen Current Hand Dominance: Right Upper Extremity ROM RUE AROM WFL, LUE PROM WFL Upper Extremity Coordination RUE WFL, LUE no active movement. Upper Extremity Sensation Numb LUE Upper Extremity Strength RUE grossly 2/5, LUE unable to actively contract muscles ADL-Treatment Eating (QC): 6 (Pt indicates able to grab drink, states not hungry and did not eat lunch) Oral Hygiene (QC): 4 (SBA, pt able to brush teeth with RUE) Shower/Bathe Self (QC): 1 (Dependent sponge bath) Upper Body Dressing (QC): 2 (Pt able to thread RUE into hospital gown, assist threading LUE and tying gown.) Lower Body Dressing (QC): 1 (Based on clinical [place], pt would require total assist with task.) On/Off Footwear (QC): 1 (dependent donning/doffing gripper socks.) Toileting Hygiene (QC): 1 (Assist to place urinal and empty urinal) Other Treatments OT introduced self to pt, pt provided information about PLOF and home set up, and participated in UE screen. Pt indicates his L arm does not work, no muscle contractions palpated. Pt agreeable to sponge bath at bed level, pt washed his face with a washcloth, assist to wash all other parts of body. Pt's hospital gown changed, and pt completed oral care. Pt indicates pain 7/10 in his back, requesting HOB to be lowered. Pt had difficulty staying awake throughout tx. Post tx, pt laying in bed, call light in reach and all needs met. Education OT Patient Education: Correct positioning, Modified ADL techniques, Progress toward Goal/Update tx plan, Purpose of tx/functional activities, Rehab process Teaching Recipient: Patient Teaching Methods: Discussion Response to Teaching: Verbalize Understanding OT Tour Manager Goals Alf Goals Time Frame: August 12, 2020 Eating (QC): 6 Oral Hygiene (QC): 5 Toileting Hygiene (QC): 3 Shower/Bathe Self (QC): 3 Upper Body Dressing (QC): 3 Lower Body Dressing (QC): 3 On/Off Footwear (QC): 2 Additional Goals: 1-Demonstrate ADL Tasks, 2-Verbalize Understanding, 3- ImproveStrength/Oli 1=Demonstrate adherence to instructed precautions during ADL tasks. 2=Patient will verbalize/demonstrate understanding of assistive devices/modifications for ADL. 3=Patient will improve strength/tolerance for activity to enable patient to perform ADL's. OT Education/Plan Problem List/Assessment Assessment: Decreased Activ Tolerance, Decreased UE Strength, Dependent Transfers, Impaired Bed Mobility, Impaired I ADL's, Impaired Self-Care Skills, Restricted Funct UE ROM Discharge Recommendations Plan/Recommendations: Continue POC Treatment Plan/Plan of Care Patient would benefit from OT for education, treatment and training to promote independence in ADL's, mobility, safety and/or upper extremity function for ADL's. Plan of Care: ADL Retraining, Functional Mobility, UE Funct Exercise/Act Treatment Duration: August 12, 2020 Frequency: 5 times per week Estimated Hrs Per Day: .25 hour per day Rehab Potential: Guarded Time/GCodes Start Time: 14:15 Stop Time: 14:45 Total Time Billed (hr/min): 30 Billed Treatment Time 1, EVM (10'), ADL (20') BETHANY DOBBINS OT Jul 27, 2020 14:54
[2020-07-27] MEDS: RT-ALBUTEROL/IPRATROPIUM 3 ML (DUONEB) VIAL INH SCH ×3 (15:05→22:14)
[2020-07-27] MEDS ORDERED: RT-ALBUTEROL SULF 2.5 MG/3 ML PRE-MIX VIAL INH PRN (16:30)
[2020-07-27] MEDS: morphine INJ 4 MG/ML 1 ML (VIAL/SYRINGE) IVP PRN ×2 (17:09→22:32)
[2020-07-27 17:14] VITALS: BP 139/72
[2020-07-27] MEDS: PANTOPRAZOLE 40 MG (PROTONIX) TAB PO SCH (19:28)
[2020-07-27] MEDS: APIXABAN 5 MG (ELIQUIS) TABLET PO SCH (19:29)
[2020-07-27] MEDS ORDERED: fluCOnazole (DIFLUCAN) 100 MG TAB PO SCH (21:00)
[2020-07-28] MEDS: RT-ALBUTEROL/IPRATROPIUM 3 ML (DUONEB) VIAL INH SCH ×6 (02:21→22:05)
[2020-07-28] MEDS: morphine INJ 4 MG/ML 1 ML (VIAL/SYRINGE) IVP PRN ×2 (03:08→09:11)
[2020-07-28 05:30] VITALS: BP 156/90
[2020-07-28 08:35] LABS: BUN/CREATININE RATIO 8; CALCIUM 9.6 MG/DL (8.5-10.1); CARBON DIOXIDE 29 MMOL/L (21-32); CHLORIDE 98 MMOL/L (98-107); CREATININE SERUM 0.59 MG/DL (0.60-1.30); GFR ESTIMATED > 60; GLUCOSE 86 MG/DL (70-105); POTASSIUM 4.2 MMOL/L (3.6-5.0); SODIUM 139 MMOL/L (135-145)
[2020-07-28] MEDS: PANTOPRAZOLE 40 MG (PROTONIX) TAB PO SCH ×2 (09:13→20:24)
[2020-07-28] MEDS: APIXABAN 5 MG (ELIQUIS) TABLET PO SCH ×2 (09:13→20:24)
--- NOTE | 2020-07-28 09:57 | Physical Therapy Progress Note ---
Therapy Progress Note PT attempted treatment, however, patient has had a major decline in status. SW coordinator notified, assessed patient and agrees. PT will attempt in a.m. 1 visit (507) DRU GOLDEN PT Jul 28, 2020 09:57
[2020-07-28] MEDS: ACETAMINOPHEN 500 MG TAB (TYLENOL) PO PRN ×2 (10:21→20:24)
[2020-07-28] MEDS ORDERED: NICOTINE 14 MG (NICODERM) PATCH TD ONE (10:30)
--- NOTE | 2020-07-28 11:54 | Progress Note ---
Subjective Subjective/Events-last exam Patient with significantly declined status in that he rapidly falls asleep, seems very drowsy and doesn't speak clearly, has very slow speech. Family at bedside today for discussion. Objective Exam Last Set of Vital Signs Vital Signs Date Time Temp Pulse Resp B/P (MAP) Pulse Ox O2 Delivery O2 Flow Rate FiO2 07/28/20 10:39 97 Nasal Cannula 1.00 07/28/20 05:30 36.7 76 16 156/90 (112) Capillary Refill : I&O Intake and Output 07/28/20 00:00 Intake Total 300 ml Output Total 350 ml Balance -50 ml Intake Oral 300 ml Output Urine Total 350 ml General: Other (somnolent, awakens and answers appropriately at times, but not reliably) Heart: Regular Rate, No Murmurs Abdomen: Normal Bowel Sounds, Soft Results/Procedures Lab Laboratory Tests 07/28/20 08:07: Sodium Level 139, Potassium Level 4.2, Chloride Level 98, Carbon Dioxide Level 29, Anion Gap 12, Blood Urea Nitrogen 5L, Creatinine 0.59L, Estimat Glomerular Filtration Rate > 60, BUN/Creatinine Ratio 8, Glucose Level 86, Calcium Level 9.6 Assessment/Plan Assessment/Plan (1) 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 In light of worsening mentation, unclear if related to mets, radiation, medication or all. Family at bedside endorse report that patient gave previously that his primary Oncologist said there was a 93% chance of survival and that he had stage 1 cancer. I will review clinic records and call primary Oncologist if needed in order to continue care planning appropriately with patient and family. (2) Atrial fibrillation with rapid ventricular response Status: Resolved Assessment & Plan: On diltiazem and eliquis (3) Perforated ulcer Status: Acute Assessment & Plan: s/p patch during inpatient stay, no acute concerns. (4) Altered mental status Status: Acute Assessment & Plan: Unclear if related to radiation or medications, but onset correlates with both. Will hold oxycodone. Qualifiers: Qualified Codes: R40.0 - Somnolence (5) DVT prophylaxis Status: Acute Assessment & Plan: Eliquis (6) Advance care planning Status: Acute Assessment & Plan: Family confirm that patient has stated he would not want aggressive interventions in a code situation, and if treatment is not beneficial, they feel he would want hospice services. Will follow up with Sejal knight and discuss further. TYLER SONG MD Jul 28, 2020 11:54
--- NOTE | 2020-07-28 13:01 | Progress Note - Cardiology ---
Cardiology SOAP Progress Note Subjective: Gen malaise and weakness Shortness of breath with exertion No cp or palp or syncope No n/v/d Poor appetite Objective: I&O/Vital Signs 07/28/20 07/28/20 07/28/20 07/28/20 05:30 06:52 09:00 10:39 Temp 36.7 Pulse 76 Resp 16 B/P (MAP) 156/90 (112) Pulse Ox 98 98 98 97 O2 Delivery Nasal Cannula Nasal Cannula Nasal Cannula Nasal Cannula O2 Flow Rate 1.00 1.00 1.00 1.00 07/28/20 00:00 Intake Total 300 ml Output Total 350 ml Balance -50 ml Constitutional: No AAO x 3; well-developed, well-nourished Respiratory: accessory muscle use, other (fair to good air entry, bibasilar coarse crackles) Cardiovascular: irregularly irregular, S1 and S2, systolic murmur (soft ANANTH at card base) Gastrointestional: No tender; soft; No guarding, No rebound; audible bowel sounds Extremities: No clubbing, No cyanosis, No significant edema Neurologic/Psychiatric: No oriented x 3; other (moves all limbs equally) Skin: No rash on exposed areas, No ulcerations on exposed areas Results/Procedures: Labs Laboratory Tests 07/28/20 08:07: Sodium Level 139, Potassium Level 4.2, Chloride Level 98, Carbon Dioxide Level 29, Anion Gap 12, Blood Urea Nitrogen 5L, Creatinine 0.59L, Estimat Glomerular Filtration Rate > 60, BUN/Creatinine Ratio 8, Glucose Level 86, Calcium Level 9.6 Laboratory Tests 07/28/20 08:07 A/P: Assessment: PAF OAC with Eliquis Echo on 07/25/20: LVEF 50-55%, PASP 50-55 mmHg S/p patch repair for gastric perf on 07/18/20, managed by the Surg Svce H/o R-sided brain mass and h/o seizure due to that Mental status change Plan: * Continue long-acting dilt * Continue oral anticoag with Eliquis * Monitor labs and correct abnormalities * Deteriorating mental status, Med Svce managing LASHAY HAYDEN MD FACP [facility] Jul 28, 2020 13:01
--- NOTE | 2020-07-28 14:24 | Occupational Ther Daily Note ---
OT Current Status-Daily Note Subjective Pt in and out of alertness. Difficult to understand speech. Pt was talking on and off through session, would fall asleep instantly. Nrsg in room. Mental Status/Objective Patient Orientation: Person Attachments: Drains, IV, Oxygen ADL-Treatment Assist nrsg with pt voiding and bed mobility. Pt is dependent with toileting and bed mobility. After therapy, pt lying in bed with call light/phone in reach. All needs met in room. Therapy Code Descriptions/Definitions Functional [place] Measure: 0=Not Assessed/NA 4=Minimal Assistance 1=Total Assistance 5=Supervision or Setup 2=Maximal Assistance 6=Modified [place] 3=Moderate Assistance 7=Complete IndependenceSCALE: Activities may be completed with or without assistive devices. 3-Dpfuhdzxsz-uoypatw completes the activity by him/herself with no assistance from a helper. 5-Set-up or Clean-up Assistance-helper sets up or cleans up; patient completes activity. [place] assists only prior to or following the activity. 4-Supervision or Touching Assistance-helper provides verbal cues and/or touching/steadying and/or contact guard assistance as patient completes activity. Assistance may be provided throughout the activity or intermittently. 3-Partial/Moderate Assistance-helper does LESS THAN HALF the effort. [place] lifts, holds or supports trunk or limbs, but provides less than half the effort. 2-Substantial/Maximal Assistance-helper does MORE THAN HALF the effort. [place] lifts or holds trunk or limbs and provides more than half the effort. 1-Ounxubhzi-rittly does ALL the effort. Patient does none of the effort to complete the activity. Or, the assistance of 2 or more helpers is required for the patient to complete the activity. If activity was not attempted, code reason: 7-Patient Refused. 9-Not Applicable-not attempted and the patient did not perform the activity before the current illness, exacerbation or injury. 10-Not Attempted due to Environmental Limitations-(lack of equipment, weather restraints, etc.). 88-Not Attempted due to Medical Conditions or Safety Concerns. Toileting Hygiene (QC): 1 OT Care Home Goals [employer] Inserting Machine Operator Goals Time Frame: August 12, 2020 Eating (QC): 6 Oral Hygiene (QC): 5 Toileting Hygiene (QC): 3 Shower/Bathe Self (QC): 3 Upper Body Dressing (QC): 3 Lower Body Dressing (QC): 3 On/Off Footwear (QC): 2 Additional Goals: 1-Demonstrate ADL Tasks, 2-Verbalize Understanding, 3- ImproveStrength/Oli 1=Demonstrate adherence to instructed precautions during ADL tasks. 2=Patient will verbalize/demonstrate understanding of assistive devices/modifications for ADL. 3=Patient will improve strength/tolerance for activity to enable patient to perform ADL's. OT Education/Plan Problem List/Assessment Assessment: Decreased Activ Tolerance, Decreased Safety Aware, Impaired Cognition, Impaired Self-Care Skills, Restricted Funct UE ROM Discharge Recommendations Plan/Recommendations: Continue POC Treatment Plan/Plan of Care Patient would benefit from OT for education, treatment and training to promote independence in ADL's, mobility, safety and/or upper extremity function for ADL's. Plan of Care: ADL Retraining, Functional Mobility, UE Funct Exercise/Act Treatment Duration: August 12, 2020 Frequency: 5 times per week Estimated Hrs Per Day: .25 hour per day Rehab Potential: Guarded Time/GCodes Start Time: 11:35 Stop Time: 11:55 Total Time Billed (hr/min): 20 Billed Treatment Time 1 visit-ADL 1 (20 min) NNAMDI NEELY Jul 28, 2020 14:24
[2020-07-28 18:45] VITALS: BP 137/66
[2020-07-28] MEDS ORDERED: SUCRALFATE 1 GM (CARAFATE) TAB ONE (21:25)
[2020-07-28] MEDS: SUCRALFATE 1 GM (CARAFATE) TAB PO SCH (21:33)
[2020-07-28] MEDS ORDERED: CALCIUM CARBONATE 500 MG (TUMS) TAB.CHEW ONE (22:02)
[2020-07-28] MEDS ORDERED: CALCIUM CARBONATE 500 MG (TUMS) TAB.CHEW PO PRN (22:15)
[2020-07-28] MEDS ORDERED: BISACODYL 10 MG SUPP (DULCOLAX) PR PRN (23:45)
[2020-07-29] MEDS ORDERED: LORazepam INJ 2 MG/ML (ATIVAN) VIAL IVP PRN ×2 (02:00→14:00)
[2020-07-29] MEDS: morphine INJ 4 MG/ML 1 ML (VIAL/SYRINGE) IVP PRN ×2 (02:02→13:17)
[2020-07-29 05:18] VITALS: BP 133/88
--- NOTE | 2020-07-29 05:37 | Diagnostic Imaging Report ---
INDICATION: Abdominal pain. Recent abdominal surgery. COMPARISON: None FINDINGS: Frontal radiographic view of the chest was obtained and continues to demonstrate mild diffuse prominence of interstitium with more focal alveolar opacity within both lung bases, right greater than left. There is no large effusion or pneumothorax. Cardiac silhouette is within normal limits. Pulmonary vasculature is mildly prominent. Supine and upright radiographic views of the abdomen show mild amount of diffuse gaseous distention of the large and small bowel. Surgical drain is present projecting over the upper abdomen. Surgical skin abby are also present. There is no large collection of free intraperitoneal air. No unexpected radiopaque foreign bodies are seen. IMPRESSION: 1. Probable postoperative ileus. 2. Cardiomegaly and pulmonary vascular congestion. 3. Mild diffuse prominence of pulmonary interstitium, which may be on the basis of interstitial pulmonary edema, although pneumonia is a consideration as well. 4. Probable bibasilar atelectasis, although more prominent opacity in the right base is concerning for superimposed pneumonia. Follow-up is advised. Dictated by: Dictated on workstation # [id number]
[2020-07-29] MEDS: RT-ALBUTEROL/IPRATROPIUM 3 ML (DUONEB) VIAL INH SCH ×3 (06:35→17:21)
[2020-07-29] MEDS: SUCRALFATE 1 GM (CARAFATE) TAB PO SCH ×3 (06:38→14:24)
[2020-07-29] MEDS: APIXABAN 5 MG (ELIQUIS) TABLET PO SCH (08:00)
[2020-07-29] MEDS: PANTOPRAZOLE 40 MG (PROTONIX) TAB PO SCH (08:03)
[2020-07-29] MEDS ORDERED: NICOTINE PATCH REMOVAL TP SCH (08:59)
[2020-07-29] MEDS ORDERED: NICOTINE 14 MG (NICODERM) PATCH TD SCH (09:00)
--- NOTE | 2020-07-29 10:48 | Physical Therapy Progress Note ---
Therapy Progress Note Patient is in bed and is able to communicate with PT and declined treatment due to fatigue. Patient does request a breathing treatment and RT was notified. Patient also reports he had a bad night and doesn't feel like doing anything but going home. PT will attempt in a.m. 1 ref ([id number]) DRU GOLDEN PT Jul 29, 2020 10:48
--- NOTE | 2020-07-29 11:02 | Diagnostic Imaging Report ---
PROCEDURE: CT head without contrast. TECHNIQUE: Multiple contiguous axial images were obtained through the brain without the use of intravenous contrast. Auto Exposure Controls were utilized during the CT exam to meet ALARA standards for radiation dose reduction. INDICATION: Worsening left-sided weakness. Comparison is made with prior head CT from the 05/28/2020. Area of edema in the right posterior cerebral hemisphere with associated rounded hyperdense lesion is again noted. The amount of edema appears to be increased since prior exam. A right to left midline shift is about the same at approximately 10 mm. There is sulcal effacement on the right. No hemorrhage is seen. Cisterns remain patent. Left maxillary sinus is opacified. IMPRESSION: There has been some increase in amount of right cerebral hemispheric edema when compared with CT head from 05/28/2020. The rounded mass in the superior right posterior parietal lobe persist. Midline shift right to left is about the same at 10 mm. No hemorrhage is seen. Dictated by: Dictated on workstation # [id number]
--- NOTE | 2020-07-29 11:52 | Occ Therapy Progress Note ---
Therapy Progress Note Pt in bed and was able to communicate to decline treatment due to fatigue. Pt stated that he just wanted to go home to listen to his music box. OT will attempt to see pt Saturday. NNAMDI NEELY Jul 29, 2020 11:52
--- NOTE | 2020-07-29 13:55 | Progress Note ---
Subjective Subjective/Events-last exam Pt had a difficult night with increasing abdominal pain, back pain, agitation and worsening work of breathing as well as tremor activity on the right side of his body. Objective Exam Last Set of Vital Signs Vital Signs Date Time Temp Pulse Resp B/P (MAP) Pulse Ox O2 Delivery O2 Flow Rate FiO2 07/29/20 10:31 98 Nasal Cannula 1.00 07/29/20 05:18 35.1 107 24 133/88 (103) Capillary Refill : I&O Intake and Output 07/29/20 00:00 Intake Total 150 ml Output Total 575 ml Balance -425 ml Intake Oral 150 ml Output Urine Total 575 ml # Voids 1 General: Alert, Mild Distress, Other (somnolent, but awakens and answers questions appropriately) Lungs: Other (decreased air movement) Heart: Regular Rate, No Murmurs Abdomen: Normal Bowel Sounds, Soft, Other (mild diffuse ttp) Neuro: Other (speech difficult to understand, have to nudge to awaken frequently, but is oriented x 3) Assessment/Plan Assessment/Plan (1) 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 In light of worsening mentation, unclear if related to mets, radiation, medication or all. Family at bedside endorse report that patient gave previously that his primary Oncologist said there was a 93% chance of survival and that he had stage 1 cancer. I will review clinic records and call primary Oncologist if needed in order to continue care planning appropriately with patient and family. 07/29 reviewed [facility] information which showed not only brain metastases but also bone and soft tissue, note that Dr. Choudhury had offered hospice services initially as well. Given his worsening clinical status, discussed with patient as well as family and he does want to proceed with comfort care with a goal of going home as soon as possible with hospice services. (2) Atrial fibrillation with rapid ventricular response Status: Resolved Assessment & Plan: Stopping medications due to comfort goals. (3) Perforated ulcer Status: Acute Assessment & Plan: s/p patch during inpatient stay, no acute concerns. (4) Altered mental status Status: Acute Assessment & Plan: Unclear if related to radiation or medications, but onset correlates with both. Will hold oxycodone. 07/29 oriented x 3 and able to clearly express his desire to go home with comfort measures. Resumed pain medications overnight due to significant pain. Qualifiers: Qualified Codes: R40.0 - Somnolence (5) DVT prophylaxis Status: Acute Assessment & Plan: Carrolquzayda (6) Advance care planning Status: Acute Assessment & Plan: Family confirm that patient has stated he would not want aggressive interventions in a code situation, and if treatment is not beneficial, they feel he would want hospice services. Will follow up with Oncology and discuss further. 07/29 discussed with patient and family his metastatic cancer that is not curable and how uncomfortable he is with current treatments, and he decided (and is supported by family) that he wants to go home with hospice. Comfort care measures initiated until d/c. TYLER SONG MD Jul 29, 2020 13:55
[2020-07-29] MEDS ORDERED: BISACODYL 10 MG SUPP (DULCOLAX) PR PRN (14:00)
[2020-07-29] MEDS ORDERED: PROMETHAZINE INJ 25 MG/ML (PHENERGAN) AMP IVP PRN (14:00)
[2020-07-29] MEDS ORDERED: morphine INJ 4 MG/ML 1 ML (VIAL/SYRINGE) IV PRN (14:00)
[2020-07-29] MEDS ORDERED: RT-ALBUTEROL/IPRATROPIUM 3 ML (DUONEB) VIAL INH PRN (14:00)
[2020-07-29] MEDS ORDERED: ONDANSETRON 4 MG/2 ML (SDV) Z0FRAN IVP PRN (14:00)
[2020-07-29] MEDS ORDERED: SALIVA STIMULANT MOUTH SPRAY (BIOTENE) 1.5 OZ MM PRN (14:00)
[2020-07-29] MEDS ORDERED: ARTIFICAL TEARS 0.4 ML UNIT DOSE (REFRESH PLUS) OU PRN (14:00)
[2020-07-29] MEDS ORDERED: GLYCOPYRROLATE 0.2 MG/ML (ROBINUL) 2 ML VIAL IV PRN (14:00)
[2020-07-29] MEDS ORDERED: ACETAMINOPHEN 650 MG SUPP (TYLENOL) PR PRN (14:00)
--- NOTE | 2020-07-29 14:27 | Therapy Team Discharge Summary ---
Therapy Discharge Summary Discharge Recommendations Date of Discharge Physical Therapy Patient evaluated initially for Swing bed status, however, patient has had a decline in medical status and will be placed on comfort care measures. PT to dismiss patient from services. Occupational Therapy Decreased Activ Tolerance, Decreased Safety Aware, Impaired Cognition, Impaired Self-Care Skills, Restricted Funct UE ROM PT Teacher Advisor Goals Teacher Advisor Goals PT Teacher Advisor Goals Time Frame: August 10, 2020 Roll Left to Right (QC): 4 Sit to Lying (QC): 4 Lying-Sitting on Side/Bed(QC): 4 Sit to Stand (QC): 4 Chair/Ldu-vf-Krqrw Xfer(QC): 4 Car Transfer (QC): 4 Does the Patient Walk: No and Walking Goal IS indicated Walk 10 feet (QC): 3 Walk 10ft-Uneven Surface(QC): 3 Walk 50ft with 2 Turns (QC): 3 Walk 150 ft (QC): 3 Does the Pt use WC or Scooter?: Yes Wheel 50 feet with 2 turns (QC: 3 1 Step (curb) (QC): 3 4 Steps (QC): 3 12 Steps (QC): 9 Picking up an Object (QC): 3 OT Shelter Goals Shelter Goals Time Frame: August 12, 2020 Eating (QC): 6 Oral Hygiene (QC): 5 Shower/Bathe Self (QC): 3 Upper Body Dressing (QC): 3 Lower Body Dressing (QC): 3 On/Off Footwear (QC): 2 Toileting Hygiene (QC): 3 Toilet/Commode Transfer (QC): 4 Additional Goals: 1-Demonstrate ADL Tasks, 2-Verbalize Understanding, 3- ImproveStrength/Oli 1=Demonstrate adherence to instructed precautions during ADL tasks. 2=Patient will verbalize/demonstrate understanding of assistive devices/modifications for ADL. 3=Patient will improve strength/tolerance for activity to enable patient to perform ADL's. DRU GOLDEN PT Jul 29, 2020 14:27
--- NOTE | 2020-07-29 14:58 | Therapy Team Discharge Summary ---
Therapy Discharge Summary Discharge Recommendations Date of Discharge Occupational Therapy Pt initially evaluated for SWB status, however pt has had a decline in medical status and will be placed on comfort care measures. OT to d/c pt from services at this time. Pt did not attain any goals. Decreased Activ Tolerance, Decreased Safety Aware, Impaired Cognition, Impaired Self-Care Skills, Restricted Funct UE ROM PT Fpc Goals Flood Control Engineer Goals PT Fpc Goals Time Frame: August 10, 2020 Roll Left to Right (QC): 4 Sit to Lying (QC): 4 Lying-Sitting on Side/Bed(QC): 4 Sit to Stand (QC): 4 Chair/Ygm-hz-Ohpwf Xfer(QC): 4 Car Transfer (QC): 4 Does the Patient Walk: No and Walking Goal IS indicated Walk 10 feet (QC): 3 Walk 10ft-Uneven Surface(QC): 3 Walk 50ft with 2 Turns (QC): 3 Walk 150 ft (QC): 3 Does the Pt use WC or Scooter?: Yes Wheel 50 feet with 2 turns (QC: 3 1 Step (curb) (QC): 3 4 Steps (QC): 3 12 Steps (QC): 9 Picking up an Object (QC): 3 OT Fpc Goals Fpc Goals Time Frame: August 12, 2020 Eating (QC): 6 Oral Hygiene (QC): 5 Shower/Bathe Self (QC): 3 Upper Body Dressing (QC): 3 Lower Body Dressing (QC): 3 On/Off Footwear (QC): 2 Toileting Hygiene (QC): 3 Toilet/Commode Transfer (QC): 4 Additional Goals: 1-Demonstrate ADL Tasks, 2-Verbalize Understanding, 3- ImproveStrength/Oli 1=Demonstrate adherence to instructed precautions during ADL tasks. 2=Patient will verbalize/demonstrate understanding of assistive devices/modifications for ADL. 3=Patient will improve strength/tolerance for activity to enable patient to perform ADL's. BETHANY DOBBINS OT Jul 29, 2020 14:58
[2020-07-29 18:00] VITALS: BP 134/81
[2020-07-29] MEDS ORDERED: LEVE100015 PO (19:39)
== END 2020-07-29 20:25 | disposition hospice, home (50) | DRG 55 ==
LOC: 4TH 13:38
PROVIDERS: ADMIT Family Medicine; ATTEND Internal Medicine
DX: C79.31 Secondary malignant neoplasm of brain (principal); C79.51 Secondary malignant neoplasm of bone; C79.89 Secondary malignant neoplasm of other specified sites; C34.90 Malignant neoplasm of unspecified part of unspecified bronchus or lung; I48.0 Paroxysmal atrial fibrillation; R41.82 Altered mental status, unspecified; Z66 Do not resuscitate; Z51.5 Encounter for palliative care; Z79.01 Long term (current) use of anticoagulants
CPT/HCPCS: 36415; 70450; 74022; 77280; 80048; 94640; 94760

== ENCOUNTER 2020-07-30 09:45 | Inpatient (IN) | payer OTHER, MEDICARE, MEDICAID ==
[~2020-07-30] VITALS: Ht 172.7 cm; Wt 68.0 kg
[~2020-07-30 09:45] MED LIST changes: +LEVE100015 PO
[2020-07-30] MEDS ORDERED: morphine INJ 10 MG/ML 1ML (SYR OR VIAL) ONE (09:56)
[2020-07-30] MEDS ORDERED: ONDANSETRON 4 MG/2 ML (SDV) Z0FRAN IVP ONE (10:00)
[2020-07-30] MEDS ORDERED: morphine INJ 10 MG/ML 1ML (SYR OR VIAL) IVP STA ×2 (10:01→11:22)
[2020-07-30] MEDS ORDERED: SCOPOLAMINE 1.5 MG (TRANSDERM-SCOP) PATCH TD ONE (10:30)
--- NOTE | 2020-07-30 10:50 | ED General ---
General Chief Complaint: Abdominal/GI Problems Stated Complaint: VOMITING Nursing Triage Note: PT BROUGHT IN BY [facility] FOR ABD PAIN AND INCREASED VOMITING. PT WAS SENT HOME YESTERDAY ON HOSPICE FOR METASTATIC CANCER. PT HAS BEEN VOMITING ALL NIGHT. PT IS ALERT ON ARRIVAL BUT DOES NOT VERBALIZE. PT HAS INCREASED WORK OF BREATHING AND DISCOMFORT. Nursing Sepsis Screen: No Definite Risk Source of Information: Patient, Family, Old Records Exam Limitations: No Limitations History of Present Illness Date Seen by Provider: July 30, 2020 Time Seen by Provider: 09:46 Initial Comments This is 65-year-old gentleman presents to the emergency room via EMS with complaints of fever, vomiting, and abdominal pain. He was discharged from this hospital late yesterday into hospice care. He has metastatic lung cancer and recently underwent surgery for a bowel perforation. He has been attended to by his POA Victor Manuel Haider and Teresita Sullivan. They can be reached at [phone] or [phone]. Patient developed vomiting this morning. They contacted the hospice nurse. They were given the option to be evaluated in the emergency room which they elected to do and therefore called EMS. I discussed the situation with Victor Manuel. He basically reports they are unable to care for him at home in his current state. Patient is hypoxic on arrival and indicates he has pain and thirst. He is not able to communicate beyond that. I was eventually able to discuss the situation with the hospice nurse Hanane at [phone] Tong who is the medical collections representative. All parties are in agreement he should be admitted for comfort care in the hospital. He can be admitted as GIP status. Allergies and Home Medications Allergies Coded Allergies: No Known Drug Allergies (Unverified , 05/28/20) Home Medications Albuterol Sulfate 6.7 Gm Hfa.aer.ad, 2 PUFF INH Q4- 6H PRN for SHORTNESS OF BREATH, (Reported) Docusate Sodium 100 Mg Tablet, 100-200 MG PO DAILY PRN for CONSTIPATION-1ST LINE, (Reported) Hydrocodone/Acetaminophen 1 Each Tablet, 1 EA PO Q6H PRN for PAIN-MODERATE (5- 7), (Reported) Ibuprofen 800 Mg Tablet, 800 MG PO Q8H PRN for PAIN-MILD (1-4), (Reported) Levetiracetam 1,000 Mg Tablet, 1,000 MG PO BID Prescribed by: VENECIA DOS SANTOS on 07/29/201938 Trazodone HCl 50 Mg Tablet, 50 MG PO HS PRN for SLEEP, (Reported) Patient Home Medication List Home Medication List Reviewed: Yes Review of Systems Review of Systems Constitutional: see HPI, weakness EENTM: no symptoms reported Respiratory: see HPI Cardiovascular: other (Tachycardia) Gastrointestinal: see HPI Genitourinary: no symptoms reported Musculoskeletal: no symptoms reported Skin: other (Mottled skin) Psychiatric/Neurological: See HPI, Other (Lethargic, altered mental status) Hematologic/Lymphatic: See HPI Past Jnllkql-Zgvyox-Bquguh Hx Patient Social History Alcohol Use: Past History Number of Drinks Today: AA Alcohol Beverage of Choice: Beer Drug of Choice: THC Smoking Status: Current Everyday Smoker Type Used: Cigarettes Recent Infectious Disease Expo: No Recent Hopitalizations: Yes Immunizations Up To Date Tetanus Booster (TDap): Less than 5yrs PED Vaccines UTD: Yes Seasonal Allergies Seasonal Allergies: No Past Medical History Surgeries: Yes (pilonidal cyt, no abdominal surgery) Cardiac Respiratory: Yes (Lung CA) COPD Cardiac: Yes Cardiomyopathy Neurological: No Genitourinary: No Gastrointestinal: Yes Ulcer Musculoskeletal: Yes Arthritis Endocrine: No HEENT: No Cancer: Yes Lung Did You Recieve Any Treatments: Yes What Type of Treatment Did You: Chemotherapy, Radiation Psychosocial: Yes Depression Integumentary: No Blood Disorders: No Family Medical History Cerebral Aneurysm NC Physical Exam Vital Signs Vital Signs - First Documented 07/30/20 09:46 Temp 36.7 Pulse 148 Resp 32 B/P (MAP) 126/90 (102) Pulse Ox 90 O2 Delivery Nasal Cannula O2 Flow Rate 5.00 Capillary Refill : Greater Than 3 Seconds Height, Weight, BMI Height: '" Weight: lbs. oz. kg; 22.00 BMI Method: General Appearance: WD/WN, Cachetic, Mild Distress HEENT: PERRL/EOMI, Other (Oropharynx dry) Neck: Normal Inspection Respiratory: Other (Gurgling respirations with increased respiratory effort) Cardiovascular: No Edema, No Murmur, Tachycardia Gastrointestinal: Distended, Tenderness, Other (Stapled abdominal incision) Extremity: No Pedal Edema, Other (Mildly) Neurologic/Psychiatric: Other (Responsive but lethargic, answers few questions, not able to carry a conversation) Skin: Warm/Dry, Mottled Progress/Results/Core Measures Suspected Sepsis Recent Fever Within 48 Hours: No Infection Criteria Present: None New/Unexplained Altered Menta: No Sepsis Screen: No Definite Risk SIRS Temperature: Pulse: 148 Respiratory Rate: 32 Blood Pressure 126 /90 Mean: 102 Results/Orders My Orders Orders - VETO ALMARAZ MD Ondansetron Injection (Zofran Injectio (07/30/20 10:00) Ed Iv/Invasive Line Start (07/30/20 10:00) Morphine Injection (Morphine Injection (07/30/20 10:01) Morphine Injection (Morphine Injection (07/30/20 09:56) Scopolamine Patch (Transderm-Scop Patch) (07/30/20 10:30) Medications Given in ED Current Medications Medications Dose Ordered Sig/Rio Route Start Time Stop Time Status Last Admin Dose Admin Ondansetron HCl 8 mg ONCE ONCE IVP 07/30/20 10:00 07/30/20 10:01 DC 07/30/20 10:07 8 MG Scopolamine 1.5 mg ONCE ONCE TD 07/30/20 10:30 07/30/20 10:31 DC 07/30/20 10:36 1.5 MG Vital Signs/I&O 07/30/20 09:46 Temp 36.7 Pulse 148 Resp 32 B/P (MAP) 126/90 (102) Pulse Ox 90 O2 Delivery Nasal Cannula O2 Flow Rate 5.00 Capillary Refill : Greater Than 3 Seconds Blood Pressure Mean: 102 Progress Note : Progress Note Patient was treated with morphine, Zofran, and scopolamine patch. He is being admitted on the comfort care order set. Departure Communication (Admissions) Time/Spoke to Admitting Phy: 10:17 Dr. Dos Santos Impression Primary Impression: Respiratory failure Qualified Codes: J96.01 - Acute respiratory failure with hypoxia Additional Impressions: Metastatic cancer Qualified Codes: C79.9 - Secondary malignant neoplasm of unspecified site Bowel perforation Coffee ground emesis Disposition: ADMITTED INPATIENT Condition: Critical Admissions Decision to Admit Reason: Admit from ER (General) Decision to Admit/Date: July 30, 2020 Time/Decision to Admit Time: 10:17 Departure-Patient Inst. Referrals: MAHSA SANTOYO DO (PCP/Family) Primary Care Physician VETO ALMARAZ MD July 30, 2020 10:50
[2020-07-30 11:28] VITALS: BP 125/79
[2020-07-30] MEDS ORDERED: SALIVA STIMULANT MOUTH SPRAY (BIOTENE) 1.5 OZ MM PRN (12:15)
[2020-07-30] MEDS ORDERED: morphine (ROXINOL) 10 MG/0.5 ML oral conc 0.5 ML PO PRN (12:15)
[2020-07-30] MEDS ORDERED: ONDANSETRON 4 MG/2 ML (SDV) Z0FRAN IV PRN (12:15)
[2020-07-30] MEDS ORDERED: PROMETHAZINE INJ 25 MG/ML (PHENERGAN) AMP IV PRN (12:15)
[2020-07-30] MEDS ORDERED: ACETAMINOPHEN 650 MG SUPP (TYLENOL) PR PRN (12:15)
[2020-07-30] MEDS ORDERED: ARTIFICAL TEARS 0.4 ML UNIT DOSE (REFRESH PLUS) OU PRN (12:15)
[2020-07-30] MEDS ORDERED: morphine IMMEDIATE RELEASE 15 MG TABLET PO PRN (12:15)
[2020-07-30] MEDS ORDERED: LORazepam ORAL CONCENTRATE 2 MG/ML 30 ML (ATIVAN) PO PRN (12:15)
[2020-07-30] MEDS ORDERED: GLYCOPYRROLATE 0.2 MG/ML (ROBINUL) 2 ML VIAL IV PRN (12:15)
[2020-07-30] MEDS ORDERED: LORazepam INJ 2 MG/ML (ATIVAN) VIAL IV PRN (12:15)
[2020-07-30] MEDS ORDERED: BISACODYL 10 MG SUPP (DULCOLAX) PR PRN (12:15)
[2020-07-30] MEDS ORDERED: RT-ALBUTEROL/IPRATROPIUM 3 ML (DUONEB) VIAL INH PRN (12:15)
[2020-07-30] MEDS ORDERED: ATROPINE 1% OPHTHALMIC SOLN 2 ML SL PRN (12:30)
[2020-07-30] MEDS: morphine INJ 4 MG/ML 1 ML (VIAL/SYRINGE) IV PRN ×4 (14:50→21:58)
[2020-07-31] MEDS: morphine INJ 4 MG/ML 1 ML (VIAL/SYRINGE) IV PRN ×6 (00:16→20:41)
[2020-07-31] MEDS: SCOPOLAMINE 1.5 MG (TRANSDERM-SCOP) PATCH TOP SCH (07:49)
--- NOTE | 2020-07-31 12:22 | History & Physical-Hospitalist ---
History of Present Illness HPI/Chief Complaint This is 65-year-old gentleman presents to the emergency room via EMS with complaints of fever, vomiting, and abdominal pain. He was discharged from this hospital late yesterday into hospice care. He has metastatic lung cancer and recently underwent surgery for a bowel perforation. He has been attended to by his POA Victor Manuel Haider and Teresita Sullivan. They can be reached at [phone] or [phone]. Patient developed vomiting this morning. They contacted the hospice nurse. They were given the option to be evaluated in the emergency room which they elected to do and therefore called EMS. I discussed the situation with Victor Manuel. He basically reports they are unable to care for him at home in his current state. Patient is hypoxic on arrival and indicates he has pain and thirst. He is not able to communicate beyond that. I was eventually able to discuss the situation with the hospice nurse Hanane at [phone] Tong who is the medical territory manager. All parties are in agreement he should be admitted for comfort care in the hospital. He can be admitted as GIP status. Upon my arrival the patient's respirations were agonal and he was unresponsive. He appeared to be comfortable. Date Seen 07/31/20 Time Seen by a Provider: 09:30 Attending Physician Venecia Dos Santos MD, Linda K DO Referring Physician Date of Admission July 30, 2020 at 10:43 Home Medications & Allergies Home Medications Reviewed patient Home Medication Reconciliation performed by pharmacy medication reconciliations wetlands technician and/or nursing. Patients Allergies have been reviewed. Allergies Allergies Coded Allergies No Known Drug Allergies (Unverified05/28/20) Patient Social History Tobacco Use?: Yes Smoking Status: Current Everyday Smoker Immunizations Up To Date Influenza Vaccine Up-to-Date: Yes; Up-to-Date Hepatitis A: No Hepatitis B: No Current Status Do you have an Advance Directi: Unable to obtain Communicates: Unable To Communicate Primary Language: Nepalese Sensory deficits: Other Additional sensory deficits: COMFORT CARE PT Past Medical History Brain cancer 05/2020 Family Medical History Family Hx: [place] Review of Systems Constitutional: see HPI Physical Exam Physical Exam Vital Signs Vital Signs - First Documented 07/30/20 09:46 Temp 36.7 Pulse 148 Resp 32 B/P (MAP) 126/90 (102) Pulse Ox 90 O2 Delivery Nasal Cannula O2 Flow Rate 5.00 Capillary Refill : Greater Than 3 Seconds Height, Weight, BMI Height: '" Weight: lbs. oz. kg; 22.79 BMI Method: General Appearance: No Apparent Distress, Chronically ill Respiratory: Other (Respirations agonal with intermittent obstructive breathing coarse breath sounds noted throughout. ) Cardiovascular: Regular Rate, Rhythm Gastrointestinal: Other (SlightAbdomen distended and firm bowel sounds absent) Results Results/Procedures Labs Patient resulted labs reviewed. Assessment/Plan Admission Diagnosis 1. 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 Patient had been set up for hospice but apparently family could not handle this at home. Patient does not appear to be in acute distress at this time continue comfort care protocol. Admission Status: Observation Critical Care Critically Ill Patient VENECIA DOS SANTOS MD July 31, 2020 12:22
[2020-08-01] MEDS: morphine INJ 4 MG/ML 1 ML (VIAL/SYRINGE) IV PRN ×2 (05:45→10:52)
--- NOTE | 2020-08-01 10:18 | Progress Note - Hospitalist ---
Subjective HPI/CC On Admission Date Seen by Provider: August 01, 2020 Time Seen by Provider: 09:00 This is 65-year-old gentleman presents to the emergency room via EMS with complaints of fever, vomiting, and abdominal pain. He was discharged from this hospital late yesterday into hospice care. He has metastatic lung cancer and recently underwent surgery for a bowel perforation. He has been attended to by his POA Victor Manuel Haider and Teresita Sullivan. They can be reached at [phone] or [phone]. Patient developed vomiting this morning. They contacted the hospice nurse. They were given the option to be evaluated in the emergency room which they elected to do and therefore called EMS. I discussed the situation with Victor Manuel. He basically reports they are unable to care for him at home in his current state. Patient is hypoxic on arrival and indicates he has pain and thirst. He is not able to communicate beyond that. I was eventually able to d iscuss the situation with the hospice nurse Hanane at [phone] Tong who is the medical office receptionist assistant. All parties are in agreement he should be admitted for comfort care in the hospital. He can be admitted as GIP status. Upon my arrival the patient's respirations were agonal and he was unresponsive. He appeared to be comfortable. Subjective/Events-last exam Pt alert and wants the [place] catheter out but he has urinary retention so it must be placed and maintained [place] will be pursued for hospice care Pain is managed with Morphine IV Family cant take care of him at home Review of Systems General: Fatigue, Malaise Objective Exam Vital Signs Vital Signs Date Time Temp Pulse Resp B/P (MAP) Pulse Ox O2 Delivery O2 Flow Rate FiO2 08/01/20 20:00 Nasal Cannula 2.00 07/31/20 07:49 36.7 07/30/20 11:28 144 30 125/79 93 Capillary Refill : Greater Than 3 Seconds General Appearance: Anxious, Chronically ill, Mild Distress, Thin Respiratory: Decreased Breath Sounds Cardiovascular: Tachycardia Neurologic/Psychiatric: Alert, Oriented x3 Results/Procedures Lab Patient resulted labs reviewed. Assessment/Plan Assessment and Plan Assess & Plan/Chief Complaint Assessment: Lung cancer with mets Right sided weakness from brain cancer enlargement COPD Smoker Alcoholism s/p gastric ulcer perforation 2 weeks ago Plan: Comfort care Hospice Critical Care Critically Ill Patient KIZZY GUAMAN DO August 01, 2020 10:18
[2020-08-02] MEDS: morphine INJ 4 MG/ML 1 ML (VIAL/SYRINGE) IV PRN ×3 (00:47→13:14)
--- NOTE | 2020-08-02 08:39 | Progress Note - Hospitalist ---
Subjective HPI/CC On Admission Date Seen by Provider: August 02, 2020 Time Seen by Provider: 09:00 This is 65-year-old gentleman presents to the emergency room via EMS with complaints of fever, vomiting, and abdominal pain. He was discharged from this hospital late yesterday into hospice care. He has metastatic lung cancer and recently underwent surgery for a bowel perforation. He has been attended to by his POA Victor Manuel Haider and Teresita Sullivan. They can be reached at [phone] or [phone]. Patient developed vomiting this morning. They contacted the hospice nurse. They were given the option to be evaluated in the emergency room which they elected to do and therefore called EMS. I discussed the situation with Victor Manuel. He basically reports they are unable to care for him at home in his current state. Patient is hypoxic on arrival and indicates he has pain and thirst. He is not able to communicate beyond that. I was eventually able to d iscuss the situation with the hospice nurse Hanane at [phone] Tong who is the medical coordinator pesticide use. All parties are in agreement he should be admitted for comfort care in the hospital. He can be admitted as GIP status. Upon my arrival the patient's respirations were agonal and he was unresponsive. He appeared to be comfortable. Objective Exam Vital Signs Vital Signs Date Time Temp Pulse Resp B/P (MAP) Pulse Ox O2 Delivery O2 Flow Rate FiO2 08/02/20 08:00 Nasal Cannula 2.00 07/31/20 07:49 36.7 07/30/20 11:28 144 30 125/79 93 Capillary Refill : Greater Than 3 Seconds Results/Procedures Lab Patient resulted labs reviewed. Assessment/Plan Assessment and Plan Assess & Plan/Chief Complaint Assessment: Lung cancer with mets Right sided weakness from brain cancer enlargement COPD Smoker Alcoholism s/p gastric ulcer perforation 2 weeks ago Plan: Comfort care Hospice Critical Care Critically Ill Patient KIZZY GUAMAN DO August 02, 2020 08:39
[2020-08-02] MEDS ORDERED: SCOPOLAMINE PATCH REMOVAL TP SCH (08:59)
[2020-08-02] MEDS: SCOPOLAMINE 1.5 MG (TRANSDERM-SCOP) PATCH TOP SCH (09:09)
[2020-08-02] MEDS ORDERED: fentaNYL PATCH 12 MCG (DURAGESIC) TD SCH (09:15)
[2020-08-02] MEDS ORDERED: MORP100S3 PO (10:07)
[2020-08-02] MEDS ORDERED: FEN12TD TD (10:07)
[2020-08-02] MEDS ORDERED: LORAZ30SOL PO (10:07)
--- NOTE | 2020-08-02 10:08 | Discharge Summary ---
Discharge Summary Hospital Course Was the Problem List Reviewed?: Yes Problems/Dx: (1) Lung cancer metastatic to brain Status: Chronic Hospital Course Date of Admission: July 30, 2020 at 10:43 Admission Diagnosis : Family Physician/Provider: Yesenia Cotter DO Date of Discharge: 08/02/20 Discharge Diagnosis: Lung cancer with mets to brain on comfort care Hospital Course: Hospital Course: Pt had an uneventful hospital course for four days after he was admitted after he was discharged home on hospice but family couldnt take care of him. He was placed on comfort care protocol that was well tolerated. He ultimately required Fentanyl Patch. All medications were arranged for hospice to take care of the patient in [place] and he was discharged but appears to be rapidly declining and appears to be eminent. Labs and Pending Lab Test: Home Meds Active Keppra (Levetiracetam) 1,000 Mg Tablet 1,000 Mg PO BID 30 Days Reported Docusate Sodium 100 Mg Tablet 100-200 Mg PO DAILY PRN Proventil Hfa (Albuterol Sulfate) 6.7 Gm Hfa.aer.ad 2 Puff INH Q4- 6H PRN Hydrocodone-Acetamin 5-325 mg (Hydrocodone/Acetaminophen) 1 Each Tablet 1 Ea PO Q6H PRN Trazodone HCl 50 Mg Tablet 50 Mg PO HS PRN Ibuprofen 800 Mg Tablet 800 Mg PO Q8H PRN Assessment/Pt Instructions [place] for hospice Discharge Planning: <30 minutes discharge planning Discharge Physical Examination Vital Signs Vital Signs Date Time Temp Pulse Resp B/P (MAP) Pulse Ox O2 Delivery O2 Flow Rate FiO2 08/02/20 08:00 Nasal Cannula 2.00 07/31/20 07:49 36.7 07/30/20 11:28 144 30 125/79 93 General Appearance: No Apparent Distress, WD/WN, Chronically ill Allergies: Coded Allergies: No Known Drug Allergies (Unverified , 05/28/20) Discharge Summary Date of Admission July 30, 2020 at 10:43 Date of Discharge Discharge Date: August 02, 2020 Admission Diagnosis 1. 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 Patient had been set up for hospice but apparently family could not handle this at home. Patient does not appear to be in acute distress at this time continue comfort care protocol. Comfort Measures/ End of Life Care: Comfort Measures Discharge Diagnosis Assessment: Lung cancer with mets Right sided weakness from brain cancer enlargement COPD Smoker Alcoholism s/p gastric ulcer perforation 2 weeks ago Plan: Comfort care Hospice KIZZY GUAMAN DO August 02, 2020 10:07
== END 2020-08-02 14:00 | disposition hospice, inpatient (51) | DRG 951 ==
LOC: EDUNIT# 09:45 → ER 09:46 → 4TH 10:43
PROVIDERS: ADMIT Internal Medicine; ATTEND Internal Medicine
DX: Z51.5 Encounter for palliative care (principal); J96.91 Respiratory failure, unspecified with hypoxia; C79.31 Secondary malignant neoplasm of brain; C34.90 Malignant neoplasm of unspecified part of unspecified bronchus or lung; G81.91 Hemiplegia, unspecified affecting right dominant side; I42.9 Cardiomyopathy, unspecified; R33.9 Retention of urine, unspecified; Z66 Do not resuscitate; J44.9 Chronic obstructive pulmonary disease, unspecified; F17.210 Nicotine dependence, cigarettes, uncomplicated; F32.9 Major depressive disorder, single episode, unspecified; F10.20 Alcohol dependence, uncomplicated